=== PATIENT | female | born 1945 | race Caucasian/White ===

== ENCOUNTER 2016-09-05 15:51 | Emergency (ER) | payer OTHER ==
[~2016-09-05 15:51] MED LIST: LEVO150T9 PO
[2016-09-05 15:55] VITALS: BP 132/109; O2SAT 99
[2016-09-05 15:57] VITALS: PULSE 117
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
[2016-09-05] MEDS ORDERED: TRANEXAMIC ACID AMP 1,000 MG in NSS 100ML IV SCH (16:10)
[2016-09-05 16:16] LABS: ISTAT CREATININE 1.1 mg/dl (0.6-1.3); ISTAT HEMOGLOBIN 11.2 g/dl (12.0-16.0); ISTAT IONIZED CALCIUM 1.06 mmol/l (1.12-1.32)
--- NOTE | 2016-09-05 16:17 | DIAGNOSTIC IMAGING REPORT ---
SINGLE VIEW CHEST CLINICAL HISTORY: Trauma. FINDINGS: An AP, portable, supine chest radiograph is compared to study dated 06/12/2007 and correlated with chest CT dated 06/13/2007. The examination is significantly degraded by portable technique and patient rotation. The examination is performed through a trauma board, which also degrades assessment. The heart is mildly enlarged. There is unchanged enlargement of the main pulmonary artery. The pulmonary vasculature is noncongested. Chronic interstitial thickening is unchanged. No airspace consolidation, large pleural effusion, or pneumothorax is seen. The skeletal structures are osteopenic. There are acute left third through seventh rib fractures, several of which are distracted. IMPRESSION: 1. There are acute left 3rd through 7th rib fractures. 2. No pneumothorax is identified. 3. There is a small volume of fluid the left lung base, likely ascending trace hemothorax. 3. Cardiac enlargement with marked enlargement of the pulmonary arteries is similar to prior studies. Electronically signed by: Mikhail Metz M.D. 09/05/2016 4:17 PM Dictated Date/Time: 09/05/2016 4:12 PM
--- NOTE | 2016-09-05 16:18 | DIAGNOSTIC IMAGING REPORT ---
PELVIS 1 OR 2 VIEW ROUTINE CLINICAL HISTORY: Trauma. COMPARISON STUDY: CT of the abdomen and pelvis November 03, 2015. FINDINGS: Overlying trauma board is noted. There is a mildly displaced comminuted right femoral neck fracture. No proximal left femoral fracture is identified. Bilateral parasymphyseal fractures are noted. There is no widening of the symphysis pubis. There is cortical irregularity of the right sacrum which could reflect a fracture. IMPRESSION: 1. Acute mildly displaced comminuted right femoral neck fracture. 2. Bilateral parasymphyseal fractures, including displaced fractures of the right inferior pubic ramus and left superior pubic ramus. 3. Possible right sacral fracture. Electronically signed by: Matty Davis M.D. 09/05/2016 4:18 PM Dictated Date/Time: 09/05/2016 4:14 PM
== END 2016-09-05 16:27 | disposition short-term general hospital (02) ==
LOC: EDBD 15:51 → C.EDB 15:53
DX: S82.892B Other fracture of left lower leg, initial encounter for open fracture type I or II (principal); S40.812A Abrasion of left upper arm, initial encounter; S22.42XA Multiple fractures of ribs, left side, initial encounter for closed fracture; S72.001A Fracture of unspecified part of neck of right femur, initial encounter for closed fracture; S01.81XA Laceration without foreign body of other part of head, initial encounter; S32.501A Unspecified fracture of right pubis, initial encounter for closed fracture; S32.502A Unspecified fracture of left pubis, initial encounter for closed fracture; V09.00XA Pedestrian injured in nontraffic accident involving unspecified motor vehicles, initial encounter

== ENCOUNTER 2017-04-10 09:39 | Emergency (ER) | payer OTHER ==
[~2017-04-10] VITALS: Ht 157.5 cm; Wt 69.4 kg
[2017-04-10 09:41] VITALS: TEMP 36.4; Ht 157.5 cm; Wt 69.4 kg
[2017-04-10] MEDS ORDERED: FAMOTIDINE 20MG/5ML IV PUSH IV STA (09:56)
--- NOTE | 2017-04-10 10:04 | EMERGENCY ROOM VISIT NOTE ---
History Report prepared by Savana: Aurelio David Under the Supervision of: Dr. Yunior Yeboah M.D. First contact with patient: 09:53 Chief Complaint: CHEST PAIN Stated Complaint: CHEST PAINS Nursing Triage Summary: pt reports heavines in chest started this am. does not radiate. denies any n/v. bilat lower ext swelling. felt sob when chest heaviness started History of Present Illness The patient is a 71 year old female who presents to the Emergency Room with complaints of chest heaviness that began this morning. When her pain began, it was significantly worse than what she is experiencing currently. She tends to have this feeling intermittently at baseline. However she is having associated shortness of breath and dizziness which is abnormal for her. When her pain began , she was eating. She denies any cough, congestion, fevers, nausea, vomiting, diarrhea, abnormal urinary symptoms. This has never happened to the patient before. She denies any personal history of cardiac disease, MT, or cancer. She has a history of hypertension and a thyroid disorder. She has a family history of MT. Source of History: patient Onset: this morning Position: chest Symptom Intensity: mild Quality: other (Heaviness) Timing: other (Improving) Associated Symptoms: + SOB, No fevers, No cough, No nausea, No vomiting, No diarrhea, No urinary symptoms Note: She is experiencing dizziness. Review of Systems See HPI for pertinent positives and negatives. A total of ten systems were reviewed and were otherwise negative. Past Medical & Surgical Medical Problems: (1) HTN (hypertension) (2) No active medical problems (3) Thyroid disorder Family History Cancer Heart disease Omitted secondary to the patient's age. Social History Smoking Status: Never Smoker Smokeless Tobacco Use: No Alcohol Use: none Drug Use: none Marital Status: Housing Status: lives with family Occupation Status: retired Current/Historical Medications Scheduled Famotidine (Pepcid), 20 MG PO BID Levothyroxine Sodium (Levothyroxine Sodium), 1 TAB PO DAILY Allergies Coded Allergies: No Known Allergies (Verified , 04/10/17) Physical Exam Vital Signs Date Time Temp Pulse Resp B/P (MAP) Pulse Ox O2 Delivery O2 Flow Rate FiO2 04/10/17 14:50 89 20 136/74 97 04/10/17 13:30 86 20 133/73 96 Room Air 04/10/17 13:26 77 04/10/17 12:27 81 16 103/81 95 Room Air 04/10/17 10:25 91 04/10/17 10:23 92 20 143/67 96 Room Air 04/10/17 10:20 96 Room Air 04/10/17 10:19 Room Air 04/10/17 09:41 36.4 95 18 142/90 96 Room Air Physical Exam GENERAL: Awake, alert, well-appearing, in no distress HENT: Normocephalic, atraumatic. Oropharynx unremarkable. EYES: Normal conjunctiva. Sclera non-icteric. NECK: Supple. No nuchal rigidity. FROM. No JVD. RESPIRATORY: Clear to auscultation. CARDIAC: Regular rate, normal rhythm. Extremities warm and well perfused. Pulses equal. ABDOMEN: Soft, non-distended. Mild epigastric discomfort to palpation. No rebound or guarding. No masses. No peritoneal signs. RECTAL: Deferred. MUSCULOSKELETAL: Chest examination reveals no tenderness. The back is symmetrical on inspection without obvious abnormality. There is no CVA tenderness to palpation. No joint edema. LOWER EXTREMITIES: Calves are equal size bilaterally and non-tender. No edema. No discoloration. NEURO: Normal sensorium. No sensory or motor deficits noted. SKIN: No rash or jaundice noted. Medical Decision & Procedures ER Provider Diagnostic Interpretation: Radiology results as stated below per my review and radiologist interpretation: CHEST ONE VIEW PORTABLE CLINICAL HISTORY: Chest pain. COMPARISON STUDY: Chest radiograph September 05, 2016. FINDINGS: Multiple healed left-sided rib fractures are noted. No pneumothorax or pleural effusion is present. Moderate cardiomegaly is unchanged. Prominence of both sabrina is likely due to dilated central pulmonary arteries. There is no evidence of edema. Minimal left basilar opacity favors atelectasis. IMPRESSION: 1. No acute cardiopulmonary findings. 2. Mild left basilar opacity suggestive of atelectasis. 3. Stable cardiomegaly and dilatation of the central pulmonary arteries which suggests pulmonary arterial hypertension. Electronically signed by: Matty Davis M.D. 04/10/2017 10:59 AM Dictated Date/Time: 04/10/2017 10:58 AM Laboratory Results 04/10/17 10:25 Red Blood Count 4.73, Mean Corpuscular Volume 90.7, Mean Corpuscular Hemoglobin 28.8, Mean Corpuscular Hemoglobin Concent 31.7, Mean Platelet Volume 8.8, Neutrophils (%) (Auto) 65.3, Lymphocytes (%) (Auto) 26.5, Monocytes (%) (Auto) 5.6, Eosinophils (%) (Auto) 2.0, Basophils (%) (Auto) 0.4, Neutrophils # (Auto) 5.33, Lymphocytes # (Auto) 2.16, Monocytes # (Auto) 0.46, Eosinophils # (Auto) 0.16, Basophils # (Auto) 0.03 04/10/17 10:25 Test 04/10/17 10:25 04/10/17 13:50 White Blood Count 8.16 K/uL (4.8-10.8) Red Blood Count 4.73 M/uL (4.2-5.4) Hemoglobin 13.6 g/dL (12.0-16.0) Hematocrit 42.9 % (37-47) Mean Corpuscular Volume 90.7 fL (80-100) Mean Corpuscular Hemoglobin 28.8 pg (25-34) Mean Corpuscular Hemoglobin Concent 31.7 g/dl (32-36) Platelet Count 174 K/uL (130-400) Mean Platelet Volume 8.8 fL (7.4-10.4) Neutrophils (%) (Auto) 65.3 % Lymphocytes (%) (Auto) 26.5 % Monocytes (%) (Auto) 5.6 % Eosinophils (%) (Auto) 2.0 % Basophils (%) (Auto) 0.4 % Neutrophils # (Auto) 5.33 K/uL (1.4-6.5) Lymphocytes # (Auto) 2.16 K/uL (1.2-3.4) Monocytes # (Auto) 0.46 K/uL (0.11-0.59) Eosinophils # (Auto) 0.16 K/uL (0-0.5) Basophils # (Auto) 0.03 K/uL (0-0.2) RDW Standard Deviation 47.3 fL (36.4-46.3) RDW Coefficient of Variation 14.2 % (11.5-14.5) Immature Granulocyte % (Auto) 0.2 % Immature Granulocyte # (Auto) 0.02 K/uL (0.00-0.02) Anion Gap 7.0 mmol/L (3-11) Est Creatinine Clear Calc Drug Dose 74.8 ml/min Estimated GFR () 104.6 Estimated GFR (Non- 90.2 BUN/Creatinine Ratio 20.2 (10-20) Calcium Level 9.4 mg/dl (8.5-10.1) Total Bilirubin 0.4 mg/dl (0.2-1) Direct Bilirubin < 0.1 mg/dl (0-0.2) Aspartate Amino Transf (AST/SGOT) 15 U/L (15-37) Alanine Aminotransferase (ALT/SGPT) 14 U/L (12-78) Alkaline Phosphatase 105 U/L (45-117) Pro-B-Type Natriuretic Peptide 147 pg/ml (0-900) Total Protein 8.1 gm/dl (6.4-8.2) Albumin 3.7 gm/dl (3.4-5.0) Lipase 86 U/L (73-393) Troponin I < 0.015 ng/ml (0-0.045) Laboratory results reviewed by me Medications Administered Medications (Trade) Dose Ordered Sig/Ryan Route Start Time Stop Time Status Last Admin Dose Admin Famotidine (Pepcid 20mg Iv Push) 20 mg NOW STAT IV 04/10/17 09:56 04/10/17 10:01 DC 04/10/17 09:56 20 MG ECG Indication: chest pain Rate (beats per minute): 91 Rhythm: sinus rhythm Findings: 1st degree AV block Comparison ECG Date: 12 Jun 2007 Change: no significant change ED Course 0953: The patient was evaluated in room A10. A complete history and physical exam was performed. 1436: I reevaluated the patient. Discussed results and discharge instructions: She verbalized understanding and agreement. The patient is ready for discharge. Medical Decision I reviewed the patient's past medical history, medications, and the nursing notes as described above. Differential diagnosis includes but is not limited to: ACS, CHF, pneumonia, bronchitis, pulmonary embolism, peptic ulcer, and AAA. The patient is a 71-year-old woman who presented to emergency department with constant chest pain since this morning after eating eggs associated shortness of breath per history of present illness. Arrival the patient reports improvement and is in no acute distress, AFVSS. EKG unremarkable and similar to prior. Troponin negative 2. Resolved with IV Pepcid suggesting likely reflux versus gastritis given that patient's symptoms began shortly after eating an egg this morning. Labs otherwise unremarkable. Heart score of 3, low risk, and given no detla troponin change unlikely to be cardiac related. Findings and plan for follow-up reviewed with patient. Patient agreeable and d/c 'd per discharge instructions. Medication Reconcilliation Current Medication List: was personally reviewed by me Blood Pressure Screening Patient's blood pressure: Elevated blood pressure Blood pressure disposition: Elevated BP felt to be situational Impression Primary Impression: Substernal precordial chest pain Additional Impression: GERD (gastroesophageal reflux disease) Scribe Attestation The scribe's documentation has been prepared under my direction and personally reviewed by me in its entirety. I confirm that the note above accurately reflects all work, treatment, procedures, and medical decision making performed by me. Departure Information Dispostion Home / Self-Care Prescriptions Famotidine (PEPCID) 20 Mg Tab 20 MG PO BID for 7 Days, #14 TAB Prov: Yunior Yeboah M.D. 04/10/17 Referrals No Doctor, Assigned (PCP) Forms Call Back Authorization, HOME CARE DOCUMENTATION FORM, IMPORTANT VISIT INFORMATION Patient Instructions ED Chest Pain Atypical Unkn Cause, ED GERD, [facility] Additional Instructions Please follow up with your primary care physician in the next 1-3 days for re- evaluation. Your symptoms were mos likely due to reflux or a gastritis. Otherwise, your exam, EKG, chest xray, and lab results did not show signs of an emergent condition at this time. Pepcid as needed for return of symptoms. Return to the emergency department for worsening symptoms as described in the accompanying instructions. Problem Qualifiers
[2017-04-10 10:55] LABS: BASO % 0.4 %; BASO ABS # 0.03 K/uL (0-0.2); COMPLETE YES; HEMATOCRIT 42.9 % (37-47); IG% 0.2 %; LYMPH % 26.5 %; LYMPH ABS # 2.16 K/uL (1.2-3.4); MEAN CELL VOLUME 90.7 fL (80-100); MEAN CORPUSCULAR HEMOGLOBIN 28.8 pg (25-34); MEAN CORPUSCULAR HGB CONC 31.7 g/dl (32-36); MEAN PLATELET VOLUME 8.8 fL (7.4-10.4); MONO % 5.6 %; NEUT % 65.3 %; PLATELET COUNT 174 K/uL (130-400); RED BLOOD COUNT 4.73 M/uL (4.2-5.4); WHITE BLOOD COUNT 8.16 K/uL (4.8-10.8)
--- NOTE | 2017-04-10 11:00 | DIAGNOSTIC IMAGING REPORT ---
CHEST ONE VIEW PORTABLE CLINICAL HISTORY: Chest pain. COMPARISON STUDY: Chest radiograph September 05, 2016. FINDINGS: Multiple healed left-sided rib fractures are noted. No pneumothorax or pleural effusion is present. Moderate cardiomegaly is unchanged. Prominence of both sabrina is likely due to dilated central pulmonary arteries. There is no evidence of edema. Minimal left basilar opacity favors atelectasis. IMPRESSION: 1. No acute cardiopulmonary findings. 2. Mild left basilar opacity suggestive of atelectasis. 3. Stable cardiomegaly and dilatation of the central pulmonary arteries which suggests pulmonary arterial hypertension. Electronically signed by: Matty Davis M.D. 04/10/2017 10:59 AM Dictated Date/Time: 04/10/2017 10:58 AM
[2017-04-10 11:17] LABS: ALT/SGPT 14 U/L (12-78); BLOOD UREA NITROGEN 13 mg/dl (7-18); BUN/CREATININE RATIO 20.2 (10-20); CALCIUM 9.4 mg/dl (8.5-10.1); CARBON DIOXIDE 29 mmol/L (21-32); CHLORIDE 102 mmol/L (98-107); CREATININE 0.63 mg/dl (0.60-1.20); GLUCOSE 82 mg/dl (70-99); POTASSIUM 3.6 mmol/L (3.5-5.1); SODIUM 138 mmol/L (136-145)
[2017-04-10 11:22] LABS: ALKALINE PHOSPHATASE 105 U/L (45-117); AST/SGOT 15 U/L (15-37)
[2017-04-10] MEDS ORDERED: FAMO20TA9 PO (14:29)
[2017-04-10 14:50] VITALS: BP 136/74; PULSE 89; O2SAT 97
== END 2017-04-10 14:50 | disposition home or self-care (01) ==
LOC: C.EDB 09:40 → C.EDA 14:50
DX: R07.2 Precordial pain (principal); K21.9 Gastro-esophageal reflux disease without esophagitis; I10 Essential (primary) hypertension; Z82.49 Family history of ischemic heart disease and other diseases of the circulatory system; E07.9 Disorder of thyroid, unspecified

== ENCOUNTER → 2017-06-26 | Outpatient (CLI) | payer OTHER | LOC: C.LAB 11:06 | PROVIDERS: ATTEND Family Medicine | DX: E03.9 Hypothyroidism, unspecified (principal) ==

== ENCOUNTER 2021-02-07 22:21 | Inpatient (IN) ==
[2021-02-07] MEDS ORDERED: SODIUM CHLORIDE 0.9% 1000ML 500 ML IV ONE (22:38)
--- NOTE | 2021-02-07 22:45 | Emergency Department Note ---
History of Present Illness General Chief complaint: Flu Like Symptoms Stated complaint: FLU SYMPTOMS Time Seen by Provider: 02/07/21 22:31 History of Present Illness This 75-year-old presents to the ER complaining of weakness, body aches, dyspnea and generalized weakness for the past day who sats are 88% and is unvaccinated for COVID-19 Location: Generalized Quality: Weak Severity: Moderate Duration: 1 day Timing: Started yesterday Context: Patient was concerned and came in Modifying factors: better with rest; worse with activity Patient also complains of abdominal discomfort with nausea. Patient denies chest pain, vomiting, diarrhea, urinary symptoms, neck stiffness. She states she feels dehydrated. No known sick contacts. Home Medications Medication Instructions Recorded Confirmed Type aspirin 81 mg tablet,delayed 81 mg PO QAM 02/07/21 02/07/21 History release cholecalciferol (vitamin D3) 50 0 mcg PO QAM 02/07/21 02/07/21 History mcg (2,000 unit) capsule (Vitamin D3) levothyroxine 75 mcg tablet 75 mcg PO QAM 02/07/21 02/07/21 History Allergies Allergy/AdvReac Type Severity Reaction Status Date / Time No Known Allergies Allergy Verified 02/07/21 23:19 Past Med/Surg History Medical History Thyroid disorder Surgical History History of orthopedic surgery Social History Smoking Status: Never smoker Feels Safe at Home: Yes Review of Systems A total of 10 systems reviewed and were otherwise negative Physical Exam Vital Signs Vital Signs - 24 hr 02/07/21 22:23 02/07/21 23:06 02/07/21 23:07 Temperature 36.5 C Temperature Source Temporal Artery Scan Pulse Rate 133 H 77 Respiratory Rate 20 Respiratory Effort / Characteristics Non-Labored Spontaneous Gasping/Agonal Respiratory Depth Normal Respiratory Pattern Regular Blood Pressure 103/52 L Blood Pressure [Left Arm] 124/51 L Blood Pressure Mean 69 Blood Pressure Mean [Left Arm] 75 Pulse Oximetry 88 L 98 96 Oxygen Delivery Method Room Air Nasal Cannula Nasal Cannula Oxygen Flow Rate 2 2 Sepsis Recent Fever Within 48 Hours No Sepsis New/Unexplained Change in Mental Status No Sepsis Action Taken by Nursing No Action Required 02/07/21 23:53 02/08/21 00:00 02/08/21 00:34 Temperature Temperature Source Pulse Rate Respiratory Rate Respiratory Effort / Characteristics Non-Labored Non-Labored Non-Labored Respiratory Depth Respiratory Pattern Blood Pressure Blood Pressure [Left Arm] Blood Pressure Mean Blood Pressure Mean [Left Arm] Pulse Oximetry 96 97 97 Oxygen Delivery Method Nasal Cannula Nasal Cannula Nasal Cannula Oxygen Flow Rate 2 2 2 Sepsis Recent Fever Within 48 Hours Sepsis New/Unexplained Change in Mental Status Sepsis Action Taken by Nursing VITALS: Vitals are noted on the nurse's note and reviewed by myself. Vital signs hypoxic on room air which improved on nasal cannula. GENERAL: Elderly female dehydrated ill-appearing, SKIN: The skin was without rashes, erythema, edema, or bruising. There is no tenting of the skin. Capillary reflex less than 2 seconds. HEAD: Normocephalic atraumatic. EARS: External auditory canals clear, tympanic membranes pearly francisco without erythema or effusion bilaterally. EYES: Pupils equal round and reactive to light and accommodation. Conjunctivae without injection, sclerae without icterus. Extraocular movements intact. NOSE: Patent, turbinates without inflammation or discharge. MOUTH: Mucous membranes dry. Pharynx without erythema or exudate. Uvula midline. Airway patent. Tongue does not deviate. NECK: Supple without nuchal rigidity. No lymphadenopathy. No thyromegaly. Cervical spine is nontender. No JVD. HEART: Regular rate and rhythm LUNGS: Clear to auscultation bilaterally without wheezes, rales or rhonchi. No retractions or accessory muscle use. ABDOMEN: Positive bowel sounds x 4. Normal tympanic percussion. Soft, tender to palpation lower abdomen, without masses or organomegaly. Valdez sign negative. No guarding or rebound tenderness. No CVA tenderness MUSCULOSKELETAL: No muscle atrophy, erythema, or edema noted. NEURO: Patient was alert and oriented to person place and time. Normal sensatio n to light and sharp touch. No focal neurological deficits. Course Administered Medications Sodium Chloride (Nss 1000ml) 1,000 mls @ 999 mls/hr IV .Q1H1M ONE Stop: 02/08/21 01:32 Last Admin: 02/08/21 00:41 Dose: 999 mls/hr Documented by: [id number] Discontinued Medications Sodium Chloride (Nss 1000ml) 500 mls @ 999 mls/hr IV .Q31M ONE Stop: 02/07/21 23:08 Last Infusion: 02/07/21 23:11 Dose: 0 mls/hr Documented by: [id number] Admin: 02/07/21 22:45 Dose: 999 mls/hr Documented by: [id number] Piperacillin Sod/Tazobactam Sod (Zosyn) 4.5 gm in 120 mls @ 240 mls/hr IV NOW ONE Stop: 02/08/21 00:52 Last Admin: 02/08/21 00:41 Dose: 240 mls/hr Documented by: [id number] Ioversol (Optiray 320 100ml) 100 ml IV ONCE ONE Stop: 02/07/21 23:51 Last Admin: 02/07/21 23:50 Dose: 93 ml Documented by: [id number] Medical Decision Making Medical Records Attestation: I reviewed the patient's medical records. Home Medications Current Medication List: was personally reviewed by me Laboratory Data Attestation: I reviewed the patient's lab results. Result diagrams: 02/07/21 22:39 02/07/21 22:39 Lab Results 02/07/21 02/07/21 02/07/21 Range/Units 22:39 22:39 22:39 WBC 14.98 H (4.8-10.8) K/uL RBC 4.52 (4.2-5.4) M/uL Hgb 12.8 (12.0-16.0) g/dL Hct 40.5 (37-47) % MCV 89.6 (80-100) fL MCH 28.3 (25-34) pg MCHC 31.6 L (32-36) g/dL RDW Std Deviation 48.4 H (36.4-46.3) fL RDW Coeff of Ricardo 14.8 H (11.5-14.5) % Plt Count 160 (130-400) K/uL MPV 9.1 (7.4-10.4) fL Immature Gran % (Auto) 0.3 % Neut % (Auto) 96.2 % Lymph % (Auto) 3.1 % [place] % (Auto) 0.3 % Eos % (Auto) 0.0 % Baso % (Auto) 0.1 % Neut # (Auto) 14.40 H (1.4-6.5) K/uL Lymph # (Auto) 0.46 L (1.2-3.4) K/uL [place] # (Auto) 0.05 L (0.11-0.59) K/uL Eos # (Auto) 0.00 (0-0.5) K/uL Baso # (Auto) 0.02 (0-0.2) K/uL Immature Gran # (Auto) 0.05 H (0.00-0.02) K/uL PT (9.0-12.0) Seconds INR (0.9-1.1) APTT (21.0-31.0) Seconds PTT Ratio Sodium 135 L (136-145) mmol/L Potassium 3.8 (3.5-5.1) mmol/L Chloride 99 (98-107) mmol/L Carbon Dioxide 25 (21-32) mmol/L Anion Gap 11.0 (3-11) BUN 22 H (7-18) mg/dl Creatinine 1.23 H (0.6-1.2) mg/dl Est Cr Clr Drug Dosing Not Reportable Est GFR ( Amer) 49.7 ml/min Est GFR (Non-Af Amer) 42.9 ml/min BUN/Creatinine Ratio 18.2 (10-20) Glucose 124 H (70-99) mg/dl Lactate (0.4-2.0) mmol/L Calcium 8.9 (8.5-10.1) mg/dl Magnesium 2.1 (1.8-2.4) mg/dl Total Bilirubin 1.7 H (0.2-1) mg/dl AST 29 (15-37) U/L ALT 17 (12-78) U/L Alkaline Phosphatase 93 (45-117) U/L Troponin I < 0.015 (0-0.045) ng/ml Total Protein 7.4 (6.4-8.2) gm/dl Albumin 3.1 L (3.4-5.0) gm/dl Globulin 4.3 H (2.5-4.0) gm/dl Albumin/Globulin Ratio 0.7 L (0.9-2) Procalcitonin 15.64 H (0-0.5) ng/ml Adenovirus (PCR) (NotDetected) B. pertussis DNA (PCR) (NotDetected) B.parapertussis DNA PCR (NotDetected) C. pneumoniae DNA (PCR) (NotDetected) Coronavirus OC43 (PCR) (NotDetected) Coronavirus HKU1 (PCR) (NotDetected) Coronavirus 229E (PCR) (NotDetected) COVID-19 Eval Order SARS-CoV-2 (PCR) (NotDetected) Coronavirus NL63 (PCR) (NotDetected) Human Metapneumovir PCR (NotDetected) Influenza Type A (PCR) (NotDetected) Influenza Type B (PCR) (NotDetected) M. pneumoniae (PCR) (NotDetected) Parainfluenza 1 (PCR) (NotDetected) Parainfluenza 2 (PCR) (NotDetected) Parainfluenza 3 (PCR) (NotDetected) Parainfluenza 4 (PCR) (NotDetected) RSV (PCR) (NotDetected) Entero/Rhino (PCR) (NotDetected) 02/07/21 02/07/21 02/07/21 Range/Units 22:39 22:39 23:00 WBC (4.8-10.8) K/uL RBC (4.2-5.4) M/uL Hgb (12.0-16.0) g/dL Hct (37-47) % MCV (80-100) fL MCH (25-34) pg MCHC (32-36) g/dL RDW Std Deviation (36.4-46.3) fL RDW Coeff of Ricardo (11.5-14.5) % Plt Count (130-400) K/uL MPV (7.4-10.4) fL Immature Gran % (Auto) % Neut % (Auto) % Lymph % (Auto) % [place] % (Auto) % Eos % (Auto) % Baso % (Auto) % Neut # (Auto) (1.4-6.5) K/uL Lymph # (Auto) (1.2-3.4) K/uL [place] # (Auto) (0.11-0.59) K/uL Eos # (Auto) (0-0.5) K/uL Baso # (Auto) (0-0.2) K/uL Immature Gran # (Auto) (0.00-0.02) K/uL PT 13.5 H (9.0-12.0) Seconds INR 1.4 H (0.9-1.1) APTT 27.7 (21.0-31.0) Seconds PTT Ratio 1.1 Sodium (136-145) mmol/L Potassium (3.5-5.1) mmol/L Chloride (98-107) mmol/L Carbon Dioxide (21-32) mmol/L Anion Gap (3-11) BUN (7-18) mg/dl Creatinine (0.6-1.2) mg/dl Est Cr Clr Drug Dosing Est GFR ( Amer) ml/min Est GFR (Non-Af Amer) ml/min BUN/Creatinine Ratio (10-20) Glucose (70-99) mg/dl Lactate 2.6 H* (0.4-2.0) mmol/L Calcium (8.5-10.1) mg/dl Magnesium (1.8-2.4) mg/dl Total Bilirubin (0.2-1) mg/dl AST (15-37) U/L ALT (12-78) U/L Alkaline Phosphatase (45-117) U/L Troponin I (0-0.045) ng/ml Total Protein (6.4-8.2) gm/dl Albumin (3.4-5.0) gm/dl Globulin (2.5-4.0) gm/dl Albumin/Globulin Ratio (0.9-2) Procalcitonin (0-0.5) ng/ml Adenovirus (PCR) (NotDetected) B. pertussis DNA (PCR) (NotDetected) B.parapertussis DNA PCR (NotDetected) C. pneumoniae DNA (PCR) (NotDetected) Coronavirus OC43 (PCR) (NotDetected) Coronavirus HKU1 (PCR) (NotDetected) Coronavirus 229E (PCR) (NotDetected) COVID-19 Eval Order [facility] at [facility] SARS-CoV-2 (PCR) (NotDetected) Coronavirus NL63 (PCR) (NotDetected) Human Metapneumovir PCR (NotDetected) Influenza Type A (PCR) (NotDetected) Influenza Type B (PCR) (NotDetected) M. pneumoniae (PCR) (NotDetected) Parainfluenza 1 (PCR) (NotDetected) Parainfluenza 2 (PCR) (NotDetected) Parainfluenza 3 (PCR) (NotDetected) Parainfluenza 4 (PCR) (NotDetected) RSV (PCR) (NotDetected) Entero/Rhino (PCR) (NotDetected) 02/07/21 Range/Units 23:00 WBC (4.8-10.8) K/uL RBC (4.2-5.4) M/uL Hgb (12.0-16.0) g/dL Hct (37-47) % MCV (80-100) fL MCH (25-34) pg MCHC (32-36) g/dL RDW Std Deviation (36.4-46.3) fL RDW Coeff of Ricardo (11.5-14.5) % Plt Count (130-400) K/uL MPV (7.4-10.4) fL Immature Gran % (Auto) % Neut % (Auto) % Lymph % (Auto) % [place] % (Auto) % Eos % (Auto) % Baso % (Auto) % Neut # (Auto) (1.4-6.5) K/uL Lymph # (Auto) (1.2-3.4) K/uL [place] # (Auto) (0.11-0.59) K/uL Eos # (Auto) (0-0.5) K/uL Baso # (Auto) (0-0.2) K/uL Immature Gran # (Auto) (0.00-0.02) K/uL PT (9.0-12.0) Seconds INR (0.9-1.1) APTT (21.0-31.0) Seconds PTT Ratio Sodium (136-145) mmol/L Potassium (3.5-5.1) mmol/L Chloride (98-107) mmol/L Carbon Dioxide (21-32) mmol/L Anion Gap (3-11) BUN (7-18) mg/dl Creatinine (0.6-1.2) mg/dl Est Cr Clr Drug Dosing Est GFR ( Amer) ml/min Est GFR (Non-Af Amer) ml/min BUN/Creatinine Ratio (10-20) Glucose (70-99) mg/dl Lactate (0.4-2.0) mmol/L Calcium (8.5-10.1) mg/dl Magnesium (1.8-2.4) mg/dl Total Bilirubin (0.2-1) mg/dl AST (15-37) U/L ALT (12-78) U/L Alkaline Phosphatase (45-117) U/L Troponin I (0-0.045) ng/ml Total Protein (6.4-8.2) gm/dl Albumin (3.4-5.0) gm/dl Globulin (2.5-4.0) gm/dl Albumin/Globulin Ratio (0.9-2) Procalcitonin (0-0.5) ng/ml Adenovirus (PCR) Not Detected (NotDetected) B. pertussis DNA (PCR) Not Detected (NotDetected) B.parapertussis DNA PCR Not Detected (NotDetected) C. pneumoniae DNA (PCR) Not Detected (NotDetected) Coronavirus OC43 (PCR) Not Detected (NotDetected) Coronavirus HKU1 (PCR) Not Detected (NotDetected) Coronavirus 229E (PCR) Not Detected (NotDetected) COVID-19 Eval Order SARS-CoV-2 (PCR) Not Detected (NotDetected) Coronavirus NL63 (PCR) Not Detected (NotDetected) Human Metapneumovir PCR Not Detected (NotDetected) Influenza Type A (PCR) Not Detected (NotDetected) Influenza Type B (PCR) Not Detected (NotDetected) M. pneumoniae (PCR) Not Detected (NotDetected) Parainfluenza 1 (PCR) Not Detected (NotDetected) Parainfluenza 2 (PCR) Not Detected (NotDetected) Parainfluenza 3 (PCR) Not Detected (NotDetected) Parainfluenza 4 (PCR) Not Detected (NotDetected) RSV (PCR) Not Detected (NotDetected) Entero/Rhino (PCR) Not Detected (NotDetected) Imaging Data Attestation: I personally reviewed and interpreted this imaging study as follows: MDM Narrative Prior records/ancillary studies reviewed and summarized above. Nursing notes reviewed. Additional history obtained from nursing. The patient's history was concerning for weak, short of breath, hypoxic and abdominal pain. Differential diagnosis: Etiologies such as metabolic, infection, hypo/hyperglycemia, electrolyte abnormalities, cardiac sources, intracerebral event, toxicologic, neurologic, as well as others were entertained. Physical examination: As above. ER treatment provided: IV Lock An order was placed for continuous cardiac monitoring. The monitor shows a rate of 60-1 50 with a sinus rhythm. IV fluids On reassessment the patient felt better. Diagnostics interpretation by me: ECG: Ordered for weakness EKG: Poor baseline, incomplete right bundle, no acute ST-T changes. Impression incomplete right bundle branch block interpreted by myself I think arrhythmia is unlikely. EKG shows no interval abnormalities such as QT prolongation or WPW. There are no findings to suggest Brugada syndrome. Cardiac monitoring in the emergency department reveals no tachycardic or bradycardic dysrhythmia. Hypertrophic cardiomyopathy was considered but there are no clear historical elements pointing toward this. EKG is not suggestive. The QRS voltage is not extremely large and there are no suggestive Q waves. The labs revealed leukocytosis, elevated procalcitonin and lactic Blood cultures pending Negative bio fire Imaging studies: Chest x-ray concerning for right middle lobe pneumonia per my interpretation Preliminary Findings Only See Final Report For Complete Findings CT ABDOMEN & PELVIS With Contrast: No prior exam for comparison. Cardiomegaly. Mild bilateral lower lobe atelectasis. Trace amount of the right- sided pleural effusion versus pleural thickening. Unremarkable liver. Possible tiny gallstones otherwise unremarkable gallbladder and biliary system. Mild pancreatic atrophy. Splenic granulomata. Calcified atherosclerotic disease of aorta. Normal right internal gland. Mass within the left adrenal gland measures 1.7 x 1.6 cm. This is incompletely characterized. If clinically, three-phase upper abdomen CT recommended for further evaluation. Normal left kidney. Right hydronephrosis with a stone at the right UP junction measuring 8.7 mm. Unremarkable stomach and he small bowel. Nonvisualized appendix. Unremarkable colon. You 2 nodules are clear suboptimally seen urinary bladder. 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 Calcified atherosclerotic disease of aorta with no aneurysm. Radiologist: Lissette Zambrano MD CURB Score: Confusion: 0 Urea (BUN > 19): 1 Respiratory Rate (>30/min): 0 Blood Pressure: Diastolic <60 or Systolic <90 0 Age (>= 65) 1 Total (0-1 low risk, 2-5 high risk): 2 Consultation: A consultation was placed with the hospitalist. The case was discussed and diagnostics were reviewed. The patient was evaluated in the ER for further treatment. Exam and history seem consistent with sepsis pneumonia. Patient has been sick. X-ray concerning for pneumonia. She is hypoxic. Medicine was consulted. She will be admitted. By the evaluation outlined above emergent etiologies such as electrolyte abnormalities, cardiac sources, intracerebral event, toxologic, neurologic, abno rmalities blood glucose, metabolic, as well as others were deemed relatively unlikely. The pt informed about the findings as listed above. All questions were answered and pleased with the treatment. The chart was completed utilizing [employer] Speech voice recognition software. Grammatical errors, random word insertions, pronoun errors, and incomplete sentences are an occassional consequence of this system due to software limitations, ambient noise, and hardware issues. Any formal questions or concerns about the content, text, or information contained within the body of this dictation should be directly addressed to the physician plant attendant or assistant operator for clarification. Impression & Plan Sepsis, Pneumonia Discharge Plan Visit Data Chief Complaint: Flu Like Symptoms Stated Complaint: FLU SYMPTOMS ED Provider: Bryan Sebastian ED Midlevel Provider: Tori Yen Discharge Problem: Sepsis, Pneumonia Patient Disposition: Admitted As Inpatient Condition: Fair Forms Stand Alone Forms: [employer] Prescriptions Prescriptions: No Action aspirin 81 mg Tablet,Delayed Release (Dr/Ec) 81 mg PO QAM RF: 0 levothyroxine 75 mcg tablet 75 mcg PO QAM RF: 0 cholecalciferol (vitamin D3) [Vitamin D3] 50 mcg (2,000 unit) Capsule 0 mcg PO QAM RF: 0 Referrals Referrals: Aubrey Ham [Staff Physician] - Discharge Problem: Sepsis Qualifiers: Sepsis type: sepsis due to unspecified organism Sepsis acute organ dysfunction status: unspecified Qualified Code(s): A41.9 - Sepsis, unspecified organism
[2021-02-07 22:50] LABS: Basophils # (auto) 0.02 K/uL (0-0.2); Basophils % (auto) 0.1 %; Hematocrit (blood only) 40.5 % (37-47); Hemoglobin 12.8 g/dL (12.0-16.0); Immature Granulocytes # (auto) 0.05 K/uL (0.00-0.02); Immature Granulocytes % (auto) 0.3 %; Lymphocytes # (auto) 0.46 K/uL (1.2-3.4); Lymphocytes % (auto) 3.1 %; Mean Corpuscular Hemoglobin 28.3 pg (25-34); Mean Corpuscular Hgb Conc 31.6 g/dL (32-36); Mean Corpuscular Volume 89.6 fL (80-100); Mean Platelet Volume 9.1 fL (7.4-10.4); Monocytes # (auto) 0.05 K/uL (0.11-0.59); Monocytes % (auto) 0.3 %; Neutrophils % (auto) 96.2 %; Platelet Count 160 K/uL (130-400); RDW Coefficient of Variation 14.8 % (11.5-14.5); RDW Standard Deviation 48.4 fL (36.4-46.3); Red Blood Count 4.52 M/uL (4.2-5.4); White Blood Count 14.98 K/uL (4.8-10.8)
[2021-02-07 23:01] LABS: INR 1.4 (0.9-1.1); Partial Thromboplastin Ratio 1.1; Partial Thromboplastin Time 27.7 Seconds (21.0-31.0); Prothrombin Time 13.5 Seconds (9.0-12.0)
[2021-02-07 23:08] LABS: Alanine Aminotransferase 17 U/L (12-78); Albumin Level 3.1 gm/dl (3.4-5.0); Aspartate Aminotransferase 29 U/L (15-37); BUN Creatinine Ratio 18.2 (10-20); Blood Urea Nitrogen 22 mg/dl (7-18); Calcium 8.9 mg/dl (8.5-10.1); Carbon Dioxide 25 mmol/L (21-32); Chloride 99 mmol/L (98-107); Est GFR (African American) 49.7 ml/min; Est GFR (Non-African American) 42.9 ml/min; Glucose 124 mg/dl (70-99); Magnesium 2.1 mg/dl (1.8-2.4); Potassium 3.8 mmol/L (3.5-5.1); Sodium 135 mmol/L (136-145)
[2021-02-07 23:12] LABS: Albumin Globulin Ratio 0.7 (0.9-2); Alkaline Phosphatase 93 U/L (45-117); Bilirubin,Total 1.7 mg/dl (0.2-1); Globulin 4.3 gm/dl (2.5-4.0); Total Protein 7.4 gm/dl (6.4-8.2); Troponin I < 0.015 ng/ml (0-0.045)
[2021-02-07] MEDS ORDERED: OPTIRAY 320 100ml IV ONE (23:50)
[2021-02-08 00:09] LABS: Adenovirus PCR Not Detected (NotDetected); Bordetella parapertussis PCR Not Detected (NotDetected); Bordetella pertussis PCR Not Detected (NotDetected); Chlamydia pneumoniae PCR Not Detected (NotDetected); Coronavirus 229E PCR Not Detected (NotDetected); Coronavirus CoV-2 (COVID19)PCR Not Detected (NotDetected); Coronavirus HKU1 PCR Not Detected (NotDetected); Coronavirus NL63 PCR Not Detected (NotDetected); Coronavirus OC43PCR Not Detected (NotDetected); Human Metapneumovirus PCR Not Detected (NotDetected); Influenza A PCR Not Detected (NotDetected); Influenza B PCR Not Detected (NotDetected); Mycoplasma pneumoniae PCR Not Detected (NotDetected); Parainfluenza Virus 1 PCR Not Detected (NotDetected); Parainfluenza Virus 2 PCR Not Detected (NotDetected); Parainfluenza Virus 3 PCR Not Detected (NotDetected); Parainfluenza Virus 4 PCR Not Detected (NotDetected); Respiratory Syncytial VirusPCR Not Detected (NotDetected); Rhinovirus/Enterovirus PCR Not Detected (NotDetected)
[2021-02-08] MEDS ORDERED: PIPERACILLIN/TAZOBACTAM 4.5 GM/120 ML BAG IV ONE (00:23)
[2021-02-08] MEDS ORDERED: PIPERACILL/TAZOBAC CONSULT ACTIVE PRN (00:23)
[2021-02-08] MEDS ORDERED: SODIUM CHLORIDE 0.9% 1000ML 1,000 ML IV ONE (00:32)
[2021-02-08] MEDS ORDERED: DOXYCYCLINE HYCLATE 100 MG in DEXTROSE 5% 100 ML IV STA (00:47)
--- NOTE | 2021-02-08 01:09 | History & Physical Report ---
Date of Service February 08, 2021 Assessment & Plan (1) Severe sepsis: Plan: SIRS plus lactic acidosis Multifactorial : Complicated UTI secondary to obstructive uropathy Atypical pneumonia given dry cough/constitutional symptoms Postsurgical hypothyroidism, TSH elevated Hyperglycemia rule out DM Medical telemetry CS, Cefepime for complicated UTI, Doxycycline for atypical pneumonia IVF, follow lactic acid Urology consult Re: Obstructive uropathy (ER provider already in touch with urologist oracle application architect. Patient to go to the OR for intervention.) Check hemoglobin A1c DVT prophylaxis. Lovenox subcu Full code Patient's daughter requesting updates from providers. Ms. Eileen Alvarado, contact #[phone]. Text document was generated using [employer] voice recognition software. It may contain grammatical or spelling errors. Kindly contact undersigned for clarification of any documentation item in question. History of Present Illness Chief Complaint: Weakness, body aches, abdominal pain, dry cough Primary Care Provider: Matt Banda DO History obtained from patient, family, and records. Medical history significant for postsurgical hypothyroidism. Few days history of achy right-sided abdominal pain with fever, chills, dry cough symptoms without chest pain, S OB. Patient denies hematuria or prior episodes. No known recent COVID-19 contacts. Patient brought to the ER by daughter. Given IV Zosyn for sepsis. 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 Allergies Allergy/AdvReac Type Severity Reaction Status Date / Time No Known Allergies Allergy Verified 02/07/21 23:19 Home Medications Medication Instructions Recorded Confirmed Type aspirin 81 mg tablet,delayed 81 mg PO QAM 02/07/21 02/07/21 History release cholecalciferol (vitamin D3) 50 0 mcg PO QAM 02/07/21 02/07/21 History mcg (2,000 unit) capsule (Vitamin D3) levothyroxine 75 mcg tablet 75 mcg PO QAM 02/07/21 02/07/21 History Past Med/Surg History Medical History Thyroid disorder Surgical History History of orthopedic surgery Social History Smoking Status: Never smoker Hx Alcohol Use: No Hx Substance Use: No Preferred Language: Hungarian Communication Ability: Effective Linux System Engineer Required: No Beliefs That Will Affect Care: None Current Living Situation: Family Other Information That Helps Us Care for You: No Feels Safe at Home: Yes Safety Concerns: Feels Safe At This Time Assistive Devices: Walker Review of Systems Review of Systems: As per HPI, all 10 systems reviewed, all other ROS negative Physical Exam Physical Exam: GENERAL: Comfortable, pleasant, obese, no respiratory distress SKIN: Normal color, warm HEENT: [place] palpebral conjunctivae, no ptosis, dry buccal mucosa, nasal cannula in place NECK : Supple, no tenderness CHEST : CTA, no tenderness HEART : Tachycardic, no obvious murmurs ABDOMEN: Some distention, minimal right-sided abdominal tenderness EXTREMITIES : No LE swelling/tenderness, no other conspicuous deformities noted NEUROLOGIC : Coherent, no facial asymmetry, no other gross focality Results & Data Results & Data ([facility]) Vital Signs (Past 12 Hours) Vital Signs Temp Pulse Pulse Resp BP BP Pulse Ox 02/08/21 01:05 124 H 103/50 L 95 02/08/21 00:34 97 02/08/21 00:00 97 02/07/21 23:53 96 02/07/21 23:07 124/51 L 96 02/07/21 23:06 77 98 02/07/21 22:23 36.5 C 133 H 20 103/52 L 88 L Laboratory Results Laboratory Results WBC 14.98 K/uL (4.8-10.8) H 02/07/21 22:39 RBC 4.52 M/uL (4.2-5.4) 02/07/21 22:39 Hgb 12.8 g/dL (12.0-16.0) 02/07/21 22:39 Hct 40.5 % (37-47) 02/07/21 22:39 MCV 89.6 fL (80-100) 02/07/21 22:39 MCH 28.3 pg (25-34) 02/07/21 22:39 MCHC 31.6 g/dL (32-36) L 02/07/21 22:39 RDW Std Deviation 48.4 fL (36.4-46.3) H 02/07/21 22:39 RDW Coeff of Ricardo 14.8 % (11.5-14.5) H 02/07/21 22:39 Plt Count 160 K/uL (130-400) 02/07/21 22:39 MPV 9.1 fL (7.4-10.4) 02/07/21 22:39 Immature Gran % (Auto) 0.3 % 02/07/21 22:39 Neut % (Auto) 96.2 % 02/07/21 22:39 Lymph % (Auto) 3.1 % 02/07/21 22:39 [place] % (Auto) 0.3 % 02/07/21 22:39 Eos % (Auto) 0.0 % 02/07/21 22:39 Baso % (Auto) 0.1 % 02/07/21 22:39 Neut # (Auto) 14.40 K/uL (1.4-6.5) H 02/07/21 22:39 Lymph # (Auto) 0.46 K/uL (1.2-3.4) L 02/07/21 22:39 [place] # (Auto) 0.05 K/uL (0.11-0.59) L 02/07/21 22:39 Eos # (Auto) 0.00 K/uL (0-0.5) 02/07/21 22:39 Baso # (Auto) 0.02 K/uL (0-0.2) 02/07/21 22:39 Immature Gran # (Auto) 0.05 K/uL (0.00-0.02) H 02/07/21 22:39 PT 13.5 Seconds (9.0-12.0) H 02/07/21 22:39 INR 1.4 (0.9-1.1) H 02/07/21 22:39 APTT 27.7 Seconds (21.0-31.0) 02/07/21 22:39 PTT Ratio 1.1 02/07/21 22:39 Sodium 135 mmol/L (136-145) L 02/07/21 22:39 Potassium 3.8 mmol/L (3.5-5.1) 02/07/21 22:39 Chloride 99 mmol/L (98-107) 02/07/21 22:39 Carbon Dioxide 25 mmol/L (21-32) 02/07/21 22:39 Anion Gap 11.0 (3-11) 02/07/21 22:39 BUN 22 mg/dl (7-18) H 02/07/21 22:39 Creatinine 1.23 mg/dl (0.6-1.2) H 02/07/21 22:39 Est Cr Clr Drug Dosing Not Reportable 02/07/21 22:39 Est GFR ( Amer) 49.7 ml/min 02/07/21 22:39 Est GFR (Non-Af Amer) 42.9 ml/min 02/07/21 22:39 BUN/Creatinine Ratio 18.2 (10-20) 02/07/21 22:39 Glucose 124 mg/dl (70-99) H 02/07/21 22:39 Lactate 1.3 mmol/L (0.4-2.0) 02/08/21 00:32 Calcium 8.9 mg/dl (8.5-10.1) 02/07/21 22:39 Magnesium 2.1 mg/dl (1.8-2.4) 02/07/21 22:39 Total Bilirubin 1.7 mg/dl (0.2-1) H 02/07/21 22:39 AST 29 U/L (15-37) 02/07/21 22:39 ALT 17 U/L (12-78) 02/07/21 22:39 Alkaline Phosphatase 93 U/L (45-117) 02/07/21 22:39 Troponin I < 0.015 ng/ml (0-0.045) 02/07/21 22:39 Total Protein 7.4 gm/dl (6.4-8.2) 02/07/21 22:39 Albumin 3.1 gm/dl (3.4-5.0) L 02/07/21 22:39 Globulin 4.3 gm/dl (2.5-4.0) H 02/07/21 22:39 Albumin/Globulin Ratio 0.7 (0.9-2) L 02/07/21 22:39 Procalcitonin 15.64 ng/ml (0-0.5) H 02/07/21 22:39 Adenovirus (PCR) Not Detected (NotDetected) 02/07/21 23:00 B. pertussis DNA (PCR) Not Detected (NotDetected) 02/07/21 23:00 B.parapertussis DNA PCR Not Detected (NotDetected) 02/07/21 23:00 C. pneumoniae DNA (PCR) Not Detected (NotDetected) 02/07/21 23:00 Coronavirus OC43 (PCR) Not Detected (NotDetected) 02/07/21 23:00 Coronavirus HKU1 (PCR) Not Detected (NotDetected) 02/07/21 23:00 Coronavirus 229E (PCR) Not Detected (NotDetected) 02/07/21 23:00 COVID-19 Eval Order RESPNP at [facility] 02/07/21 23:00 SARS-CoV-2 (PCR) Not Detected (NotDetected) 02/07/21 23:00 Coronavirus NL63 (PCR) Not Detected (NotDetected) 02/07/21 23:00 Human Metapneumovir PCR Not Detected (NotDetected) 02/07/21 23:00 Influenza Type A (PCR) Not Detected (NotDetected) 02/07/21 23:00 Influenza Type B (PCR) Not Detected (NotDetected) 02/07/21 23:00 M. pneumoniae (PCR) Not Detected (NotDetected) 02/07/21 23:00 Parainfluenza 1 (PCR) Not Detected (NotDetected) 02/07/21 23:00 Parainfluenza 2 (PCR) Not Detected (NotDetected) 02/07/21 23:00 Parainfluenza 3 (PCR) Not Detected (NotDetected) 02/07/21 23:00 Parainfluenza 4 (PCR) Not Detected (NotDetected) 02/07/21 23:00 RSV (PCR) Not Detected (NotDetected) 02/07/21 23:00 Entero/Rhino (PCR) Not Detected (NotDetected) 02/07/21 23:[address] abdomen pelvis initial read: No prior examfor comparison. Cardiomegaly. Mild bilateral lower lobe atelectasis. Trace amount of the right- sided pleural effusion versus pleural thickening. Unremarkable liver. Possible tinygallstones otherwise unremarkable gallbladder and biliarysystem. Mild pancreatic atrophy. Splenic granulomata. Calcified atherosclerotic disease of aorta. Normal right internal gland. Masswithin the left adrenal gland measures 1.7 x 1.6 cm. This is incompletelycharacterized. If clinically, three-phase upper abdomen CT recommended for further evaluation. Normal left kidney. Right hydronephrosiswith a stone at the right UP junction measuring 8.7 mm. Unremarkable stomach and he small bowel. Nonvisualized appendix. Unremarkable colon. You 2 nodules are clear suboptimallyseen urinarybladder. 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 Calcified atherosclerotic disease of aortawith no aneurysm. CT chest initial read: Mild bilateral lower lobe atelectasis, slightlymore significant on the right compared to the left. Enlargement of central pulmonaryarteries, cannot exclude pulmonaryhypertension, clinical correlation recommended. Mild cardiomegalywith coronaryarterycalcifications. No focal infiltrate. There are areas of mild Mosaic pattern which maybe seen with vascular disease or small airway disease. Atherosclerotic disease of aortawith no aneurysm. Upper abdomen reveals area of decreased attenuation of the right kidneysuggestive of pyelonephritis, follow-up CT reveals mild hydronephrosis froma right UP junction stone. Please see accompanying CT abdomen and pelvis report. EKG as per my interpretation : Rate 130, sinus tachycardia, RAD, no ischemia
[2021-02-08 01:27] LABS: T4 Free Thyroxine 1.48 ng/dl (0.8-1.6)
[2021-02-08 01:51] LABS: Appearance Urine Turbid (Clear); Bacteria Urine Automated 1+ (Negative); Bilirubin Urine Negative (Negative); Blood Urine 3+ (Negative); Color Urine Dark Yellow; Glucose Urine UA Negative (Negative); Ketones Urine Trace (Negative); Leukocyte Esterase Urine 2+ (Negative); Nitrite Urine Positive (Negative); Protein Urine 2+ (Negative); RBC Urine Automated >30 /hpf (0-4); Specific Gravity Urine > 1.045 (1.000-1.030); Urobilinogen Urine Negative (Negative); WBC Urine Automated >30 /hpf (0-5)
[2021-02-08] MEDS: NSS + 20MEQ KCL 20 MEQ/1,000 ML BAG IV SCH ×3 (02:34→22:52)
--- NOTE | 2021-02-08 02:34 | Emergency Department Note ---
ED Visit Note I have personally evaluated this patient examined her and reviewed the pertinent labs and data. I have discussed the case with Bebe Yen, the physician psychologist research assistant and agree with the plan. Please refer to the PA note This patient comes in after feeling ill and weak for a day. She was hypoxemic when she came in although she tells me she is not short of breath. She was fluid resuscitated given IV antibiotics and according to the daughter when I see her she is feeling sick and looks significantly better. Her heart rate has come down. Her inflammatory markers are elevated although the lactate cleared with resuscitation. It is possible she could have a pneumonia. Also concerning is her urine does appear to be infected and on CAT scan she does have a obstructing stone. She will be admitted and Dr. Lopez saw her we also have consulted urology to see her in the ER as well. . : Sepsis Qualifiers: Sepsis type: sepsis due to unspecified organism Sepsis acute organ dysfunction status: unspecified Qualified Code(s): A41.9 - Sepsis, unspecified organism
[2021-02-08] MEDS ORDERED: CEFEPIME CONSULT ACTIVE PRN (02:40)
--- NOTE | 2021-02-08 03:27 | Urology Consultation ---
Date of Consultation February 08, 2021 Assessment & Plan (1) Ureterolithiasis: Patient is being admitted by the hospitalist service. We recommend proceeding as follows: Appears as though the patient has sepsis and urinary source is certainly present. Due to the obstructing kidney stone and findings on her urinalysis I discussed case with my attending physician Dr. Tubbs. Due to the patient's marginal blood pressure, tachycardia, imaging, and laboratory findings he is planning on taking patient to the operating room for cystoscopy and possible stent placement. Keep patient n.p.o. until after procedure We recommend continuing with broad-spectrum antibiotics. The patient has rec eived both doxycycline and Zosyn. Both blood and urine cultures have been sent and antibiotics can be tailored based on results of these Recommend providing hydration with IV fluids Additional recommendations be forthcoming based on her clinical course as unfolds as well as operative findings Remainder of plan as directed by the primary service Supervising Physician Co-Signing Physician Notes Agree with above. hypotensive, tachycardic. ill appearing. plan for immediate cystoscopy and right ureteral stent placement. History of Present Illness Reason for Consultation: Sepsis from obstructing kidney stone History of Present Illness This is a 75-year-old female who was brought to the emergency department by her daughter secondary to feeling of generally not feeling well. Patient's daughter supplemented the patient's history and she noted that earlier this evening her mother had some shakes and rigors. There were no fevers to the best of their knowledge. He also noted that her mother was complaining of feeling generally weak with body aches. She has not complained of any chest pain. She did note some shortness of breath. She has not had any nausea or vomiting. She denies any back pain. She denies any dysuria or urinary frequency. Her oral intake seems somewhat decreased over the past 12 to 24 hours. In the emergency department patient had labs and imaging. She did have a CT scan of the abdomen and pelvis. Patient was noted to have right hydronephrosis with a kidney stone at the right UP junction. The stone measured approximately 8.7 mm. Patient was also noted to have a mass in the left adrenal gland measuring 1.7 x [address] scan of the chest showed bilateral lower lobe atelectasis but no discrete infiltrates suggestive of pneumonia were noted. Labs included a CBC where white blood cell count was elevated at 14.9. Her hemoglobin and hematocrit are both noted to be within normal range. Platelet count was noted to be normal. Coagulation studies showed an INR of 1.4. Chemistry profile showed sodium was 135. Potassium was within the normal range. Her BUN and creatinine were both slightly elevated at 22 and 1.23 respectively. There were no significant elevation of LFTs. Patient did have a urinalysis that was concerning for infection as the urine appeared turbid. She was also noted to have positive nitrites, 2+ leukocyte esterase,, greater than 30 white blood cells per high-power field and 1+ bacteria. Patient has had a Covid test and it was noted to be negative. Patient was also tested for influenza A and B which was also noted to be negative. Since arrival to the emergency department the patient has received some fluids and antibiotics and her daughter has noted some clinical improvement. She was in no distress at the time of my interview. Allergies Allergy/AdvReac Type Severity Reaction Status Date / Time No Known Allergies Allergy Verified 02/07/21 23:19 Home Medications Medication Instructions Recorded Confirmed Type aspirin 81 mg tablet,delayed 81 mg PO QAM 02/07/21 02/07/21 History release cholecalciferol (vitamin D3) 50 0 mcg PO QAM 02/07/21 02/07/21 History mcg (2,000 unit) capsule (Vitamin D3) levothyroxine 75 mcg tablet 75 mcg PO QAM 02/07/21 02/07/21 History Patient History Medical History Thyroid disorder Surgical History History of orthopedic surgery Social History Smoking Status: Never smoker Feels Safe at Home: Yes Review of Systems Constitutional: + chills, + fatigue and + weakness; no fever Eyes: no diplopia Ear, Nose, Mouth, Throat: no ear pain and no sore throat Respiratory: + dyspnea; no cough Cardiovascular: no chest pain Gastrointestinal: no abdominal pain, no nausea and no vomiting Genitourinary: no dysuria, no hematuria and no flank pain Musculoskeletal: no back pain Integumentary: no rash Neurologic: + generalized weakness; no localized weakness Physical Exam Constitutional: well developed and well nourished; no acute distress Eyes: no conjunctival abnormality ENMT: Ears: no hearing impairment Neck: trachea midline Respiratory: normal respiratory effort; no respiratory distress and no labored breathing Breath sounds are decreased at bases Cardiovascular: Rate/Rhythm: regular rate, regular rhythm and + tachycardic Vessels: radial pulses present Gastrointestinal (Abdomen): Abdomen is soft, nontender, nondistended. Palpation did not cause pain Musculoskeletal: No calf tenderness Skin: no rashes Neurologic: moves all extremities Psychiatric: A+Ox3, euthymic affect Results & Data ([facility]) Vital Signs (Past 12 Hours) Vital Signs Temp Pulse Pulse Resp BP BP Pulse Ox 02/08/21 02:31 97 02/08/21 01:05 124 H 103/50 L 95 02/08/21 00:34 97 02/08/21 00:00 97 02/07/21 23:53 96 02/07/21 23:07 124/51 L 96 02/07/21 23:06 77 98 02/07/21 22:23 36.5 C 133 H 20 103/52 L 88 L PG Care Time/CCT Total # of Minutes Spent Total Time Spent with Patient: Total time spent is greater than 50% in coordination of care (as documented) at patient's floor/unit and/or counseling patient: Coding Level of Care Code 55228 Inpt Consult Level 5 Diagnoses Ureterolithiasis N20.1
--- NOTE | 2021-02-08 03:55 | Anesthesiology Consultation ---
Date of Service February 08, 2021 Assessment & Plan Chart Review Chart Review: Acceptable Risk for Surgery and Patient NOT seen in Pre Admission Testing Consults Requested none ASA [id number] Proposed Anesthesia Anesthesia Type: MAC Additional Comments: covid test neg. History Surgery Operation Date: 02/08/21 04:00 Proposed Procedures p Cystoscopy Retrograde - Erasmo Tubbs MD Height/Weight Height: 5 ft 2 in Weight: 81.1 kg Allergies Allergy/AdvReac Type Severity Reaction Status Date / Time No Known Allergies Allergy Verified 02/07/21 23:19 Medications Home Medications Medication Instructions Recorded Confirmed Last Taken aspirin 81 mg tablet,delayed 81 mg PO QAM 02/07/21 02/07/21 02/07/21 release cholecalciferol (vitamin D3) 50 0 mcg PO QAM 02/07/21 02/07/21 02/07/21 mcg (2,000 unit) capsule (Vitamin D3) levothyroxine 75 mcg tablet 75 mcg PO QAM 02/07/21 02/07/21 02/07/21 Active Medications Generic Name Dose Route Start Last Admin Trade Name Freq PRN Reason Stop Dose Admin Potassium Chloride/Sodium Chloride 20 meq in 1,000 mls @ 100 mls/hr 02/08/21 01:30 02/08/21 02:34 Normal Saline W/20 Meq Kcl IV 03/10/21 01:29 100 mls/hr .Q10H SHELDON Administration NPO Date Last Intake of Fluids: 02/07/21 Time Last Intake of Fluids: 14:00 Last Intake of Fluids Comment: water Date Last Intake of Solids: 02/07/21 Time Last Intake of Solids: 14:00 Last Intake of Solids Comment: mashed potatoes Past Medical History Medical History Thyroid disorder Exercise / Class Metabolic Activity III < 4 Walking/Shop/Light housework Past Surgical History Surgical History History of orthopedic surgery Past Anesthesia History No Hx of Anesthesia Complications and No Family Hx of Anesthesia Complications History of PONV No Hx of PONV and No Hx of Motion Sickness Social History Smoking Status: Never smoker Physical Exam Vital Signs Last Vital Signs Temp 36.5 C 02/07/21 22:23 Pulse 124 H 02/08/21 01:05 Resp 20 02/08/21 00:00 BP 105/51 L 02/08/21 02:01 Pulse Ox 97 02/08/21 03:03 Testing Laboratory Results 02/07/21 22:39 02/07/21 22:39 PT 13.5 Seconds (9.0-12.0) H 02/07/21 22:39 INR 1.4 (0.9-1.1) H 02/07/21 22:39 APTT 27.7 Seconds (21.0-31.0) 02/07/21 22:39 Urine Color Dark Yellow 02/08/21 01:26 Urine Appearance Turbid (Clear) A 02/08/21 01:26 Urine pH 5.0 (4.5-7.5) 02/08/21 01:26 Ur Specific [place] > 1.045 (1.000-1.030) H 02/08/21 01:26 Urine Protein 2+ (Negative) H 02/08/21 01:26 Urine Glucose (UA) Negative (Negative) 02/08/21 01:26 Urine Ketones Trace (Negative) H 02/08/21 01:26 Urine Nitrite Positive (Negative) A 02/08/21 01:26 Ur Leukocyte Esterase 2+ (Negative) H 02/08/21 01:26 Urine WBC (Auto) >30 /hpf (0-5) H 02/08/21 01:26 Urine RBC (Auto) >30 /hpf (0-4) H 02/08/21 01:26 U Hyaline Cast (Auto) 1-5 /lpf (0-5) 02/08/21 01:26 U Epithel Cells (Auto) 10-20 /lpf (0-5) H 02/08/21 01:26 Urine Bacteria (Auto) 1+ (Negative) H 02/08/21 01:26 Electrocardiogram Date: 02/07/21 Findings: + ST @ (at 132;IRBBB) Chest X-Ray Date: 02/07/21 Findings: + NAD and + atelectasis
[2021-02-08] MEDS ORDERED: ATROPINE SULFATE 0.1 MG/ML 10ML SYR IV PRN (04:20)
[2021-02-08] MEDS ORDERED: fentaNYL citrate 100 MCG/2 ML VIAL IV PRN (04:20)
[2021-02-08] MEDS ORDERED: LABETALOL HCL IV 5 MG/ML 20ML IV PRN (04:20)
[2021-02-08] MEDS ORDERED: ONDANSETRON INJ 2 MG/ML 2 ML VIAL IV PRN (04:20)
[2021-02-08] MEDS ORDERED: FLUMAZENIL 0.1 MG/1 ML 10 ML VIAL IV PRN (04:20)
[2021-02-08] MEDS ORDERED: PROMETHAZINE HCL 12.5 MG in SODIUM CHLORIDE 0.9% 50 ML IV PRN ×2 (04:20→07:44)
[2021-02-08] MEDS ORDERED: NALOXONE HCL 0.4 MG/1 ML VIAL/CARP IV PRN (04:20)
[2021-02-08] MEDS ORDERED: ePHEDrine sulfate 50 MG/ML AMP IV PRN (04:20)
[2021-02-08] MEDS ORDERED: fentaNYL citrate 100 MCG/2 ML VIAL ONE (04:29)
[2021-02-08] MEDS ORDERED: MIDAZOLAM HCL 1 MG/ML 2ML VIAL ONE (04:29)
[2021-02-08] MEDS ORDERED: PROPOFOL IV EMULSION 10 MG/ML 20 ML VIAL IV ONE (04:30)
--- NOTE | 2021-02-08 05:09 | Operative Report ---
PG Post Operative Report Pre & Post Diagnosis Operation Date: 02/08/21 04:00 Pre-Op Diagnosis: Septic Right Kidney Stone Post-Op Diagnosis: Septic Right Kidney Stone I identified the patient and participated in the time-out.: Yes Procedure Operation Date: 02/08/21 04:00 Actual Procedures p Cystoscopy and Right Ureteral Stent Placement - Erasmo Tubbs MD Surgeon Charly Tubbs MD Power Brake Rebuilder none Estimated Blood Loss 0 Findings Consistent with Post-Op Diagnosis Specimens none Description of Procedure The patient was identified in the preoperative holding area, appropriate informed consents were reviewed and completed and the patient was transferred to the operative suite. Upon arrival, appropriate antibiotics and anesthesia were administered and the patient was placed in dorsal lithotomy position and prepped and draped in sterile fashion. Begin the case up as a 22 [place] cystoscope with 30 degree lens. She had a relatively healthy appearing bladder without any stones. Inspection revealed ureteral orifices to be in orthotopic position. I cannulated the right UO and advanced a wire to the kidney. I can easily identify the stone on fluoroscopy and the wire was able to advance beyond the stone. The stone was the wire bypassed the stone there was a discharge of purulent urine. I subsequently placed a 6 [place] by 24 cm double-J stent seeing good curl in the kidney as well as the bladder. I decompressed the bladder and end of the case. She was reversed of anesthesia and taken to the recovery room in stable condition. There were no complications. I attest to the content of the Intraoperative Record and any orders documented therein. Any exceptions are noted below.
--- NOTE | 2021-02-08 05:45 | Anesthesiology Progress Note ---
Date of Service February 08, 2021 Anesthesia Post Procedure Vital Signs Vital Signs: Temp Pulse Pulse Pulse Resp BP BP 02/08/21 05:35 99 H 20 89/49 L 02/08/21 05:25 101 H 21 93/50 L 02/08/21 05:18 36.3 C L 108 H 19 95/46 L 02/08/21 03:03 02/08/21 02:31 02/08/21 02:01 105/51 L 02/08/21 01:05 124 H 103/50 L 02/08/21 01:00 120 H 103/50 L 02/08/21 00:34 02/08/21 00:00 118 H 20 105/59 L 02/07/21 23:53 02/07/21 23:07 124/51 L 02/07/21 23:06 77 02/07/21 22:31 117 H 20 124/51 L 02/07/21 22:23 36.5 C 133 H 20 103/52 L Pulse Ox 02/08/21 05:35 97 02/08/21 05:25 96 02/08/21 05:18 95 02/08/21 03:03 97 02/08/21 02:31 97 02/08/21 02:01 95 02/08/21 01:05 95 02/08/21 01:00 97 02/08/21 00:34 97 02/08/21 00:00 96 02/07/21 23:53 96 02/07/21 23:07 96 02/07/21 23:06 98 02/07/21 22:31 97 02/07/21 22:23 88 L Transfer of Care Handoff Completed per policy Notes Mental Status: alert / awake / arousable Patient Amnestic to Procedure: Yes Nausea / Vomiting: adequately controlled Pain: adequately controlled Airway Patency, RR, SpO2: stable & adequate BP & HR: stable & adequate and see Notes below Hydration State: stable & adequate Anesthetic Complications: no major complications apparent Notes: pt is septic w/ BP hovering at 90's sys
[2021-02-08 07:42] LABS: Estimated Average Glucose 108 mg/dl; Hemoglobin A1C 5.4 % (4.5-5.6)
[2021-02-08] MEDS ORDERED: ACETAMINOPHEN 325 MG TAB PO PRN (07:44)
[2021-02-08] MEDS ORDERED: HYDROmorphone INJ 0.5 MG/0.5 ML SYR IV PRN (07:44)
[2021-02-08] MEDS ORDERED: traMADol HCL 50 MG TABLET PO PRN (07:44)
[2021-02-08] MEDS ORDERED: INFLUENZA VACCINE HIGH DOSE PF 65+ 0.7 ML SYR IM ONE (07:47)
--- NOTE | 2021-02-08 08:03 | CT Scan Report ---
CT chest diagnostic wo con CT DOSE: 558.42 mGy.cm CLINICAL HISTORY: 75 years-old Female with cough, low o2. Acute cough with hypoxia TECHNIQUE: Multiaxial CT images of the chest were performed without contrast. A dose lowering techni que was utilized adhering to the principles of ALARA. COMPARISON: CT abdomen and pelvis 02/07/2021, CTA chest 06/13/2007 FINDINGS: Study is degraded by respiratory motion artifact. Moderate cardiomegaly without pericardial effusion. Coronary artery calcifications. No thoracic aortic aneurysm. Marked dilation of the pulmon radha artery with the main pulmonary artery measuring up to 5.5 cm transversely. Atherosclerosis of the aorta. No adenopathy. Trace right pleural effusion. No pneumothorax. Linear subsegmental bibasilar consolidative opacities are suggestive of atelectasis. Mild groundglass densities with mosaic attenuation of the right upper and left lower lobes. No overt pulmonary edema, suspicious nodule or mass. 3 mm solid nodule of the r ight upper lobe on image 34 series 4 is of low clinical suspicion however appears to be new from [facility]. The central airways appear patent. Heterogeneous enhancement of the right kidney. Contrast is noted within the left renal collecting sys tem. Left adrenal gland lesion is better seen on comparison CT abdomen and pelvis. Unremarkable soft tissues. Degenerative changes of the spine and shoulders. No acute fracture. IMPRESSION: 1. Limited exam secondary to respiratory motion artifact. 2. Cardiomegaly with pulmonary artery hypertension. 3. Trace right pleural effusion with subsegmental bibasilar atelectasis. 4. Mild bilateral air trapping. 5. Heterogeneous enhancement of the right kidney is suggestive of delayed nephrogram secondary to the obstructing calculus of the right uteropelvic junction as described on CT study of same day. These f indings should be correlated with urinalysis to exclude infection. ACT 112: Negative or not required by law. Electronically signed by: Fausto Grubbs M.D. 02/08/2021 8:02 AM
--- NOTE | 2021-02-08 08:21 | XRay Report ---
XR chest 1V portable INDICATION: MN ^SEPSIS . TECHNIQUE: Single frontal radiograph of the chest was obtained. Comparison: Comparison is made to chest one view 04/10/2017 FINDINGS: No lines and tubes are seen. Cardiomegaly is noted. The lungs are clear. Prominence of the bilateral sabrina is unchanged. No evidence of pleural effusion or pneumothorax. Multiple old healed left rib frac tures again noted. IMPRESSION: No acute chest disease. Suggestion of pulmonary arterial hypertension. ACT 112: Negative or not required by law. Electronically signed by: Shai Pineda M.D. 02/08/2021 8:19 AM
--- NOTE | 2021-02-08 08:33 | Fluoroscopy Report ---
FL retrograde includes kub CLINICAL HISTORY: RT SIDE STENT COMPARISON STUDY: None. FLUOROSCOPY TIME: 10 seconds. FINDINGS: 2 fluoroscopic spot images of the abdomen and pelvis demonstrate retrograde placement of a guidewire within the right renal collecting system followed by placement of a right ureteral stent. O nly the proximal portion of the stent is identified but appears in good position. IMPRESSION: Fluoroscopy provided for right ureteral stent placement. ACT 112: Negative or not required by law. Electronically signed by: Lee Hurley M.D. 02/08/2021 8:32 AM
--- NOTE | 2021-02-08 08:52 | CT Scan Report ---
ABDOMEN AND PELVIS CT WITH IV CONTRAST CT DOSE: 621.99 mGy.cm HISTORY: Lower abdominal pain. TECHNIQUE: Multiaxial CT images of the abdomen and pelvis were performed following the use of intrave nous contrast. A dose lowering technique was utilized adhering to the principles of ALARA. COMPARISON STUDY: Chest CT 02/08/2021. FINDINGS: Please refer to same day chest CT for further evaluation of the lung bases. Suboptimal eval uation of the abdomen and pelvis due to the motion artifact. There is no pneumoperitoneum. No pneumat osis. There is a right hip prosthesis. Old, healed bilateral pubic ring fractures are noted. There is a single screw through the sacroiliac joints. The heart is mildly enlarged. There appear to be a few tiny gallstones. The liver, pancreas, left kidney are unremarkable. A few calcified granulomas seen within the spleen. There are bilateral indeterminate adrenal gland nodules with the largest on the le ft measuring 1.7 cm. No retroperitoneal lymphadenopathy. Moderate calcified plaque within the normal caliber abdominal aorta. Delayed right nephrogram secondary to the obstructing 8 mm stone within the ureteropelvic junction resulting in mild right hydronephrosis. There is mild right perinephric edema noted. Small amount of gas within the decompressed bladder. This may be due to prior catheterization. No left-sided hydronephrosis. No retroperitoneal lymphadenopathy. The uterus is unremarkable. There is a small right ovarian cyst. Normal left ovary. No pelvic free fluid. Moderate stool within the col on. No bowel wall thickening or obstruction. IMPRESSION: 1. An 8 mm obstructing stone within the right ureteropelvic junction resulting in mild right hydronep hrosis. 2. Cholelithiasis. 3. No definite bowel wall thickening or obstruction. 4. Please refer to the same day chest CT for further evaluation of the lung bases. ACT 112: Negative or not required by law. Electronically signed by: Lee Hurley M.D. 02/08/2021 8:51 AM
[2021-02-08] MEDS ORDERED: CEFEPIME 2,000 MG in SYRINGE 0 ML IV SCH (09:00)
[2021-02-08] MEDS: ASPIRIN 81 MG ECTAB PO SCH (09:03)
[2021-02-08] MEDS: HEPARIN SOD 5,000 UNIT/0.5 ML VIAL SQ SCH ×3 (09:03→22:50)
[2021-02-08] MEDS: LEVOTHYROXINE SODIUM 75 MCG TABLET PO SCH (09:03)
--- NOTE | 2021-02-08 14:44 | Ultrasound Report ---
US venous doppler LE LT INDICATION: MN ^L LE edema, warmth, r/o dvt. COMPARISON: None available at the time of this dictation. TECHNIQUE: Left lower extremity real-time compression venous ultrasound with Color Doppler imaging. Utilizing real-time ultrasonic imaging multiple real time high-resolution ultrasonic images with comp ression and noncompression maneuvers of the deep venous system in addition to color doppler imaging w ere performed from the common femoral vein through the proximal calf veins. FINDINGS: Currently there is normal compressibility of the deep venous system from the common femoral vein thro ugh the proximal calf veins. No current evidence of acute thrombosis is identified. Of note, the alfredo jona vein is only partially visualized. Impression: No evidence of deep venous thrombus. ACT 112: Negative or not required by law. Electronically signed by: Shai Pineda M.D. 02/08/2021 2:43 PM
[2021-02-08 15:19] LABS: Creatinine Clr Calc Pharmacy 40.4 ml/min; Est GFR (African American) 51.7 ml/min; Est GFR (Non-African American) 44.6 ml/min
--- NOTE | 2021-02-08 15:53 | Hospitalist Progress Note ---
Date of Service February 08, 2021 Assessment & Plan (1) Severe sepsis: Plan: 75-year-old female with history of postsurgical hypothyroidism, hypertension presenting with weakness abdominal pain, dry cough. Severe sepsis, likely secondary to complicated UTI secondary to ureteral stone Possible atypical pneumonia Afebrile this morning Blood culture: Pending Urine culture: Pending Bio fire panel: Negative, Covid screen: Negative CT abdomen and pelvis: 1. An 8 mm obstructing stone within the right ureteropelvic junction resulting in mild right hydronephrosis. 2. Cholelithiasis. 3. No definite bowel wall thickening or obstruction. 4. Please refer to the same day chest CT for further evaluation of the lung bases. CT chest: Mild groundglass densities with mosaic attenuation of the right upper and left lower lobes. No overt pulmonary edema, suspicious nodule or mass. 3 mm solid nodule of the right upper lobe on image 34 series 4 is of low clinical suspicion however appears to be new from comparison. The central airways appear patent. IMPRESSION: 1. Limited exam secondary to respiratory motion artifact. 2. Cardiomegaly with pulmonary artery hypertension. 3. Trace right pleural effusion with subsegmental bibasilar atelectasis. 4. Mild bilateral air trapping. 5. Heterogeneous enhancement of the right kidney is suggestive of delayed nephrogram secondary to the obstructing calculus of the right uteropelvic junction as described on CT study of same day. These findings should be correlated with urinalysis to exclude infection. 02/08/2021: Status post cystoscopy with stent placement by Dr. Tubbs Continue with cefepime plus doxycycline day #1 Follow-up cultures We will order speech therapy evaluation given CAT scan findings concerning for possible aspiration although patient denies any signs or symptoms of aspiration Postsurgical hypothyroidism, TSH elevated Continue levothyroxine DVT prophylaxis. Heparin subcutaneous Full code Disposition Lives at home will order PT and OT evaluation Admission and Anticipated Discharge Date Admission Date: February 08, 2021 Subjective Follow-up for sepsis, UTI, ureteral stone, pneumonia, etc. Seen sitting up in bed comfortable, not in distress, on 2 L of oxygen via nasal cannula Good spirits Smiling Oriented x2, answers most questions appropriately States she feels better compared to admission Denies abdominal pain, flank pain, nausea vomiting, problems with urination Has occasional cough, but no shortness of breath, sputum production, chills ,Denies chest pain, palpitations, dizziness No other symptoms Review of Systems Review of Systems: all noted and negative except for above Physical Exam Physical Exam: General- oriented x 2, not in distress, speaks in sentences with no effort or accessory muscle use Head- atraumatic Eyes- PERRL, EOMI, anicteric ENT- oropharynx clear Neck- supple, no JVD, no adenopathy, no thyromegaly; carotids +2/2, no bruits appreciated Lungs- clear to auscultation bilaterally, no rales/wheezes Heart- normal rate, regular rhythm; no murmur, no gallop, no rub appreciated Abdomen- normal bowel sounds, nondistended, soft, nontender, no masses or hepatosplenomegaly Extremities-left lower extremity: Positive mild edema with mild warmth, right lower extremity essentially normal, no calf tenderness; peripheral pulses intact Neuro- alert, oriented x 2; CN 2-12 grossly intact; motor 5/5 bilaterally;sensation 100% on all extremities; no other gross focal neurologic deficits Skin- warm & dry Results & Data Results & Data ([facility]) Vital Signs (Past 12 Hours) Vital Signs Temp Pulse Pulse Pulse Resp BP BP 02/08/21 12:00 36.9 C 110 H 18 89/42 L 02/08/21 08:30 36.8 C 106 H 20 99/56 L 02/08/21 07:38 36.9 C 100 H 20 98/42 L 02/08/21 07:00 101 H 22 107/41 L 02/08/21 06:45 99 H 22 106/46 L 02/08/21 06:30 102 H 22 97/52 L 02/08/21 06:15 107 H 24 102/71 02/08/21 06:00 36.5 C 101 H 22 107/45 L 02/08/21 05:45 98 H 20 101/66 02/08/21 05:35 99 H 20 89/49 L 02/08/21 05:25 101 H 21 93/50 L 02/08/21 05:18 36.3 C L 108 H 19 95/46 L 02/08/21 03:03 02/08/21 02:31 02/08/21 02:01 105/51 L 02/08/21 01:05 124 H 103/50 L 02/08/21 01:00 120 H 103/50 L Pulse Ox 02/08/21 12:00 95 02/08/21 08:30 95 02/08/21 07:38 95 02/08/21 07:00 97 02/08/21 06:45 96 02/08/21 06:30 97 02/08/21 06:15 95 02/08/21 06:00 92 02/08/21 05:45 94 02/08/21 05:35 97 02/08/21 05:25 96 02/08/21 05:18 95 02/08/21 03:03 97 02/08/21 02:31 97 02/08/21 02:01 95 02/08/21 01:05 95 02/08/21 01:00 97 all noted and reviewed including below
--- NOTE | 2021-02-08 16:58 | Electrocardiogram Report ---
Test Reason : Blood Pressure : / mmHG Vent. Rate : 132 BPM Atrial Rate : 117 BPM P-R Int : 196 ms QRS Dur : 098 ms QT Int : 284 ms P-R-T Axes : 026 094 040 degrees QTc Int : 420 ms Sinus rhythm with PVCs Rightward axis Incomplete right bundle branch block T wave abnormality, consider inferior ischemia Abnormal ECG When compared with ECG of 10-APR-2017 09:44, T wave inversion now evident in Inferior leads Nonspecific T wave abnormality now evident in Lateral leads Confirmed by Charly Hi ([id number]) on 02/08/2021 4:58:12 PM Referred By: REFERRED SELF Confirmed By:Edy Hi
[2021-02-08] MEDS: CEFEPIME 2,000 MG in SYRINGE 0 ML IV SCH ×2 (21:24→22:10)
[2021-02-08] MEDS: DOXYCYCLINE HYCLATE 100 MG CAP PO SCH (22:10)
[2021-02-09] MEDS: HEPARIN SOD 5,000 UNIT/0.5 ML VIAL SQ SCH ×3 (05:53→21:27)
[2021-02-09] MEDS: LEVOTHYROXINE SODIUM 75 MCG TABLET PO SCH (06:13)
[2021-02-09 06:32] LABS: Basophils # (auto) 0.02 K/uL (0-0.2); Basophils % (auto) 0.1 %; Eosinophils # (auto) 0.01 K/uL (0-0.5); Eosinophils % (auto) 0.1 %; Hemoglobin 11.2 g/dL (12.0-16.0); Immature Granulocytes # (auto) 0.02 K/uL (0.00-0.02); Immature Granulocytes % (auto) 0.1 %; Lymphocytes # (auto) 0.86 K/uL (1.2-3.4); Mean Corpuscular Hemoglobin 27.9 pg (25-34); Mean Corpuscular Hgb Conc 31.1 g/dL (32-36); Mean Corpuscular Volume 89.8 fL (80-100); Mean Platelet Volume 9.8 fL (7.4-10.4); Monocytes # (auto) 0.91 K/uL (0.11-0.59); Monocytes % (auto) 6.3 %; Neutrophils # (auto) 12.63 K/uL (1.4-6.5); Neutrophils % (auto) 87.4 %; Platelet Count 134 K/uL (130-400); RDW Coefficient of Variation 15.5 % (11.5-14.5); RDW Standard Deviation 51.2 fL (36.4-46.3); Red Blood Count 4.01 M/uL (4.2-5.4); White Blood Count 14.45 K/uL (4.8-10.8)
[2021-02-09 07:09] LABS: BUN Creatinine Ratio 28.7 (10-20); Calcium 8.6 mg/dl (8.5-10.1); Est GFR (African American) 72.5 ml/min; Est GFR (Non-African American) 62.5 ml/min; Potassium 4.3 mmol/L (3.5-5.1)
[2021-02-09] MEDS: CEFEPIME 2,000 MG in SYRINGE 0 ML IV SCH ×3 (07:42→23:15)
[2021-02-09] MEDS: DOXYCYCLINE HYCLATE 100 MG CAP PO SCH ×2 (07:42→21:27)
[2021-02-09] MEDS: ASPIRIN 81 MG ECTAB PO SCH (08:07)
--- NOTE | 2021-02-09 09:25 | Urology Progress Note ---
Date of Service February 09, 2021 Assessment & Plan (1) Ureterolithiasis: (2) Acute UTI: (3) Sepsis: Plan: - Pt POD#1 s/p cystoscopy and right ureteral stent placement - Doing well, progressing as expected - Afebrile, lab work reviewed - creatinine 0.90, WBC 14.45 - UC&S and 2/2 BCx prelim gram negative bacilli - on IV Cefepime and doxycycline, follow cultures - Tolerating right ureteral stent with minimal bother - Okay to d/c from perspective when medically stable, also being treated for possible atypical pneumonia - She will need course of antibiotics based on sensitivities for total of 14 days - Recommend d/c with Tamsulosin, prn Pyridium and prn pain medication for stent management - Expected clinical course reviewed, all questions answered - Will arrange outpatient follow-up with our service to discuss definitive stone management Admission and Anticipated Discharge Date Admission Date: February 08, 2021 Subjective 75 yo F POD #1 s/p cystoscopy and right ureteral stent placement with Dr. Tubbs. Pt seen and examined at bedside this AM. She is awake, alert and sitting up in bed eating breakfast. Reports feeling better today. No acute issues overnight. No abdominal or flank pain. Tolerating PO diet, no nausea or vomiting. She is voiding spontaneously, no dysuria or hematuria. No fever or chills overnight. She would like to go home today. Chart review: Afebrile, creatinine 0.90, WBC 14.45, UC&S and 2/2 BCx prelim gram negative bacilli. On IV Cefepime and Doxycycline. Review of Systems Constitutional: as per Subjective / HPI Gastrointestinal: as per Subjective / HPI Genitourinary: as per Subjective / HPI Physical Exam Constitutional: well developed and well nourished; no acute distress and not ill appearing Respiratory: able to speak in complete sentences; no respiratory distress and no labored breathing Gastrointestinal (Abdomen): Inspection/Auscultation: abdomen normal to inspection; abdomen not distended Neurologic: moves all extremities and awake Psychiatric: AOx 2 Results & Data ([facility]) Vital Signs (Past 12 Hours) Vital Signs Temp Pulse Pulse Resp BP Pulse Ox 02/09/21 07:00 36.9 C 97 H 20 131/67 90 02/09/21 03:17 36.4 C L 98 H 20 102/66 92 02/09/21 01:08 104 H 02/08/21 23:23 36.8 C 107 H 20 102/58 L 92 PG Care Time/CCT Total # of Minutes Spent Total Time Spent with Patient: Total time spent is greater than 50% in coordination of care (as documented) at patient's floor/unit and/or counseling patient: Coding Level of Care Code 20305 Subseq Hosp Care Lvl 2 Diagnoses Ureterolithiasis N20.1 Acute UTI N39.0 Sepsis A41.9 Sepsis acute organ dysfunction status: unspecified Sepsis type: sepsis due to unspecified organism (1) Sepsis Sepsis acute organ dysfunction status: unspecified Sepsis type: sepsis due to unspecified organism Qualified Code(s): A41.9 - Sepsis, unspecified organism
--- NOTE | 2021-02-09 16:20 | Hospitalist Progress Note ---
Date of Service February 09, 2021 Assessment & Plan (1) Severe sepsis: Plan: 75-year-old female with history of postsurgical hypothyroidism, hypertension presenting with weakness abdominal pain, dry cough. Severe sepsis, likely secondary to complicated UTI secondary to ureteral stone Possible atypical pneumonia CT abdomen and pelvis: 1. An 8 mm obstructing stone within the right ureteropelvic junction resulting in mild right hydronephrosis. 2. Cholelithiasis. 3. No definite bowel wall thickening or obstruction. 4. Please refer to the same day chest CT for further evaluation of the lung bases. CT chest: Mild groundglass densities with mosaic attenuation of the right upper and left lower lobes. No overt pulmonary edema, suspicious nodule or mass. 3 mm solid nodule of the right upper lobe on image 34 series 4 is of low clinical suspicion however appears to be new from comparison. The central airways appear patent. IMPRESSION: 1. Limited exam secondary to respiratory motion artifact. 2. Cardiomegaly with pulmonary artery hypertension. 3. Trace right pleural effusion with subsegmental bibasilar atelectasis. 4. Mild bilateral air trapping. 5. Heterogeneous enhancement of the right kidney is suggestive of delayed nephrogram secondary to the obstructing calculus of the right uteropelvic junction as described on CT study of same day. These findings should be correlated with urinalysis to exclude infection. 02/08/2021: Status post cystoscopy with stent placement by Dr. Tubbs Afebrile, leukocytosis about the same 14,000 Subjectively feels improving Blood culture: Gram-negative bacilli Urine culture: Pending [employer] panel: Negative, Covid screen: Negative Continue with cefepime plus doxycycline day #2 Follow-up cultures ID consulted We will order speech therapy evaluation given CAT scan findings concerning for possible aspiration although patient denies any signs or symptoms of aspiration Postsurgical hypothyroidism, TSH elevated Continue levothyroxine DVT prophylaxis. Heparin subcutaneous Full code Disposition Lives at home will order PT and OT evaluation Admission and Anticipated Discharge Date Admission Date: February 08, 2021 Subjective Follow-up for UTI, bacteremia, right UPJ stone, status post cystoscopy and stent placement, pneumonia etc. Seen sitting up in bed, comfortable, having lunch, not distressed States she feels tired today, was not able to get proper sleep last night Otherwise feels improved Denies abdominal pain, flank pain, fevers or chills, nausea vomiting, problems with urination No chest pain, palpitations, dizziness, headache No other symptoms Review of Systems Review of Systems: all noted and negative except for above Physical Exam Physical Exam: General- oriented x 3, not in distress, speaks in sentences with no effort or accessory muscle use Eyes- anicteric Neck- no JVD Lungs-mild rales at the bases, no wheezing, good air entry bilaterally Heart- normal rate, regular rhythm; no murmurs Abdomen- normal bowel sounds, nondistended, soft, nontender No CVA tenderness Extremities-minimal left lower extremity edema, warmth, erythema but no tenderness, no calf tenderness Neuro- alert, oriented x 3; no gross focal neurologic deficits Skin- warm & dry Results & Data Results & Data ([facility]) Vital Signs (Past 12 Hours) Vital Signs Temp Pulse Resp BP BP Pulse Ox 02/09/21 15:37 36.7 C 90 18 105/58 L 91 02/09/21 12:00 36.7 C 93 H 18 106/68 93 02/09/21 07:00 36.9 C 97 H 20 131/67 90 all noted and reviewed including below
[2021-02-10] MEDS: LEVOTHYROXINE SODIUM 75 MCG TABLET PO SCH (06:09)
[2021-02-10] MEDS: HEPARIN SOD 5,000 UNIT/0.5 ML VIAL SQ SCH ×3 (06:09→21:22)
[2021-02-10] MEDS: DOXYCYCLINE HYCLATE 100 MG CAP PO SCH ×2 (07:29→21:22)
[2021-02-10] MEDS: ASPIRIN 81 MG ECTAB PO SCH (07:29)
[2021-02-10] MEDS: CEFEPIME 2,000 MG in SYRINGE 0 ML IV SCH (07:32)
[2021-02-10 07:48] LABS: Basophils # (auto) 0.03 K/uL (0-0.2); Basophils % (auto) 0.2 %; Eosinophils # (auto) 0.06 K/uL (0-0.5); Eosinophils % (auto) 0.5 %; Hematocrit (blood only) 37.4 % (37-47); Hemoglobin 11.5 g/dL (12.0-16.0); Immature Granulocytes # (auto) 0.02 K/uL (0.00-0.02); Immature Granulocytes % (auto) 0.2 %; Lymphocytes # (auto) 0.81 K/uL (1.2-3.4); Lymphocytes % (auto) 6.7 %; Mean Corpuscular Hemoglobin 27.9 pg (25-34); Mean Corpuscular Hgb Conc 30.7 g/dL (32-36); Mean Corpuscular Volume 90.8 fL (80-100); Mean Platelet Volume 9.6 fL (7.4-10.4); Monocytes # (auto) 0.95 K/uL (0.11-0.59); Monocytes % (auto) 7.9 %; Neutrophils # (auto) 10.22 K/uL (1.4-6.5); Neutrophils % (auto) 84.5 %; Platelet Count 149 K/uL (130-400); RDW Coefficient of Variation 15.5 % (11.5-14.5); RDW Standard Deviation 52.2 fL (36.4-46.3); Red Blood Count 4.12 M/uL (4.2-5.4); White Blood Count 12.09 K/uL (4.8-10.8)
[2021-02-10 08:00] LABS: BUN Creatinine Ratio 33.6 (10-20); Calcium 9.1 mg/dl (8.5-10.1); Est GFR (African American) 96.6 ml/min; Est GFR (Non-African American) 83.3 ml/min; Potassium 4.2 mmol/L (3.5-5.1)
[2021-02-10] MEDS ORDERED: cefTRIAXone SODIUM 2,000 MG in DEXTROSE 5% 50 ML IV SCH (18:00)
--- NOTE | 2021-02-10 21:45 | Discharge Summary ---
Date of Service February 10, 2021 Admission HPI Per Admitting Provider History obtained from patient, family, and records. Medical history significant for postsurgical hypothyroidism. Few days history of achy right-sided abdominal pain with fever, chills, dry cough symptoms without chest pain, S OB. Patient denies hematuria or prior episodes. No known recent COVID-19 contacts. Patient brought to the ER by daughter. Given IV Zosyn for sepsis. 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 Discharge Data Allergies Allergy/AdvReac Type Severity Reaction Status Date / Time No Known Allergies Allergy Verified 02/07/21 23:19 Consultations 02/08/21 00:24 ED Decision to Admit Stat 02/08/21 07:44 Consult Urology Routine 02/09/21 09:41 Consult Infectious Diseases Routine Procedures Performed Operation Date: 02/08/21 04:00 Actual Procedures p Cystoscopy and Right Ureteral Stent Placement - Erasmo Tubbs MD Ordered Studies 02/07/21 22:46 CT abd pelvis IV con only Urgent 02/08/21 01:16 CT chest diagnostic wo con Urgent 02/08/21 04:48 FL retrograde includes kub Routine 02/08/21 14:30 US venous doppler LE LT Stat Hospital Course (1) Severe sepsis: 75-year-old female with history of postsurgical hypothyroidism, hypertension presenting with weakness abdominal pain, dry cough. Severe sepsis, likely secondary to complicated UTI secondary to ureteral stone Possible atypical pneumonia CT abdomen and pelvis: 1. An 8 mm obstructing stone within the right ureteropelvic junction resulting in mild right hydronephrosis. 2. Cholelithiasis. 3. No definite bowel wall thickening or obstruction. 4. Please refer to the same day chest CT for further evaluation of the lung bases. CT chest: Mild groundglass densities with mosaic attenuation of the right upper and left lower lobes. No overt pulmonary edema, suspicious nodule or mass. 3 mm solid nodule of the right upper lobe on image 34 series 4 is of low clinical suspicion however appears to be new from comparison. The central airways appear patent. IMPRESSION: 1. Limited exam secondary to respiratory motion artifact. 2. Cardiomegaly with pulmonary artery hypertension. 3. Trace right pleural effusion with subsegmental bibasilar atelectasis. 4. Mild bilateral air trapping. 5. Heterogeneous enhancement of the right kidney is suggestive of delayed nephrogram secondary to the obstructing calculus of the right uteropelvic junction as described on CT study of same day. These findings should be correlated with urinalysis to exclude infection. 02/08/2021: Status post cystoscopy with stent placement by Dr. Tubbs Afebrile, leukocytosis about the same 14,000 Subjectively feels improving Blood culture: Gram-negative bacilli Urine culture: Pending Bio fire panel: Negative, Covid screen: Negative Continue with cefepime plus doxycycline day #2 Follow-up cultures ID consulted We will order speech therapy evaluation given CAT scan findings concerning for possible aspiration although patient denies any signs or symptoms of aspiration Postsurgical hypothyroidism, TSH elevated Continue levothyroxine DVT prophylaxis. Heparin subcutaneous Full code Disposition Lives at home will order PT and OT evaluation Discharge Plan Discharge Items Reason For Visit: SEPSIS Condition on Discharge: Fair Follow-up/Referrals: Aubrey Ham [Staff Physician] - Stand-Alone Forms: [facility] Medications and DC Order Prescriptions: No Action aspirin 81 mg Tablet,Delayed Release (Dr/Ec) 81 mg PO QAM RF: 0 levothyroxine 75 mcg tablet 75 mcg PO QAM RF: 0 cholecalciferol (vitamin D3) [Vitamin D3] 50 mcg (2,000 unit) Capsule 0 mcg PO QAM RF: 0 Admission Data Admit Date/Time: 02/08/21 05:11 Attending Provider: Murray Morales Admit Provider: Melvin Archer Primary Care Provider: Matt Banda Other Providers: Ina Brown ; Kathia Green I. ; Edgar Arteaga ; Yonis Herrera ; Erasmo Tubbs ; Nara Perez ; Adin Owusu ; Tanisha Flores ; Daniella Thrasher ; Georgia Joseph ; Jose Denise ; Moses Conklin ; Grisel Gomes ; Irene Joseph ; Wong Smith ; Mj Garcia ; Margarita Dennis ; Oscar Zazueta I. ; Vishnu Ramirez II ; Sara Lazo ; Iron Brooke ; Melvin Archer ; Wyatt Alvarez ; Vadim Mills
--- NOTE | 2021-02-10 21:47 | Hospitalist Progress Note ---
Date of Service February 10, 2021 Assessment & Plan (1) Severe sepsis: Plan: 75-year-old female with history of postsurgical hypothyroidism, hypertension presenting with weakness abdominal pain, dry cough. Severe sepsis, likely secondary to complicated UTI secondary to ureteral stone Possible atypical pneumonia CT abdomen and pelvis: 1. An 8 mm obstructing stone within the right ureteropelvic junction resulting in mild right hydronephrosis. 2. Cholelithiasis. 3. No definite bowel wall thickening or obstruction. 4. Please refer to the same day chest CT for further evaluation of the lung bases. CT chest: Mild groundglass densities with mosaic attenuation of the right upper and left lower lobes. No overt pulmonary edema, suspicious nodule or mass. 3 mm solid nodule of the right upper lobe on image 34 series 4 is of low clinical suspicion however appears to be new from comparison. The central airways appear patent. IMPRESSION: 1. Limited exam secondary to respiratory motion artifact. 2. Cardiomegaly with pulmonary artery hypertension. 3. Trace right pleural effusion with subsegmental bibasilar atelectasis. 4. Mild bilateral air trapping. 5. Heterogeneous enhancement of the right kidney is suggestive of delayed nephrogram secondary to the obstructing calculus of the right uteropelvic junction as described on CT study of same day. These findings should be correlated with urinalysis to exclude infection. 02/08/2021: Status post cystoscopy with stent placement by Dr. Tubbs Leukocytosis above 14,000 Blood culture: Gram-negative bacilli- Ecoli urine culture positive for gram-negative E. coli Bio fire panel: Negative, Covid screen: Negative Patient was started on IV cefepime ID on board recommend cefazolin 2 g every 8, then when ready to discharge to transition to amoxicillin 500 mg every 8 hours until 02/22 Repeat blood culture pending Postsurgical hypothyroidism, TSH elevated Continue levothyroxine DVT prophylaxis. Heparin subcutaneous Full code Disposition Lives at home will order PT and OT evaluation Admission and Anticipated Discharge Date Admission Date: February 08, 2021 Subjective Patient was seen and examined for follow-up bacteremia and UTI Lying in bed with no acute distress, comfortable. She kept asking to go homed Denies abdominal pain, flank pain, fevers or chills, nausea vomiting, chest pain, palpitations, dizziness, headache Review of Systems Review of Systems: All systems reviewed & are unremarkable except as noted in Subjective Physical Exam Physical Exam: General- No acute distress Head- atraumatic Eyes- PERRL, EOMI, ENT- oropharynx clear Neck- supple, no JVD Lungs- clear to auscultation Heart- regular rhythm; no murmur Abdomen- normal bowel sounds, soft, nontender Extremities- no calf tenderness Neuro- alert, oriented, PERRL, EOMI; no facial palsy; no dysarthria Skin- warm & dry Results & Data Results & Data ([facility]) Vital Signs (Past 12 Hours) Vital Signs Temp Pulse Pulse Pulse Resp BP Pulse Ox 02/10/21 20:49 36.6 C 97 H 18 117/70 92 02/10/21 16:00 93 H 02/10/21 15:00 36.7 C 95 H 18 111/66 94 02/10/21 14:00 94 02/10/21 11:00 36.4 C L 82 18 115/59 L 93
[2021-02-10] MEDS ORDERED: SODIUM CHLORIDE 0.9% 500 ML IV ONE (23:42)
[2021-02-11] MEDS ORDERED: MAGNESIUM SULFATE / D5W 1 GM/100 ML BAG IV ONE (00:15)
[2021-02-11 00:25] LABS: Basophils # (auto) 0.02 K/uL (0-0.2); Basophils % (auto) 0.2 %; Eosinophils # (auto) 0.13 K/uL (0-0.5); Eosinophils % (auto) 1.3 %; Hematocrit (blood only) 35.2 % (37-47); Hemoglobin 11.2 g/dL (12.0-16.0); Immature Granulocytes # (auto) 0.02 K/uL (0.00-0.02); Immature Granulocytes % (auto) 0.2 %; Lymphocytes # (auto) 1.22 K/uL (1.2-3.4); Lymphocytes % (auto) 11.8 %; Mean Corpuscular Hemoglobin 28.1 pg (25-34); Mean Corpuscular Hgb Conc 31.8 g/dL (32-36); Mean Corpuscular Volume 88.2 fL (80-100); Mean Platelet Volume 9.6 fL (7.4-10.4); Monocytes # (auto) 1.07 K/uL (0.11-0.59); Monocytes % (auto) 10.4 %; Neutrophils # (auto) 7.85 K/uL (1.4-6.5); Neutrophils % (auto) 76.1 %; Platelet Count 165 K/uL (130-400); RDW Coefficient of Variation 15.5 % (11.5-14.5); RDW Standard Deviation 50.2 fL (36.4-46.3); Red Blood Count 3.99 M/uL (4.2-5.4); White Blood Count 10.31 K/uL (4.8-10.8)
[2021-02-11 00:38] LABS: Partial Thromboplastin Ratio 1.4
[2021-02-11 00:49] LABS: BUN Creatinine Ratio 29.7 (10-20); Calcium 9.2 mg/dl (8.5-10.1); Creatinine Clr Calc Pharmacy 66.8 ml/min; Est GFR (African American) 98.7 ml/min; Est GFR (Non-African American) 85.2 ml/min; Potassium 4.2 mmol/L (3.5-5.1)
[2021-02-11] MEDS: HEPARIN SOD 5,000 UNIT/0.5 ML VIAL SQ SCH ×3 (05:32→21:21)
[2021-02-11] MEDS: LEVOTHYROXINE SODIUM 75 MCG TABLET PO SCH (05:32)
[2021-02-11] MEDS: METOPROLOL SUCC 25MG EXT REL TAB PO SCH ×2 (08:20→21:20)
[2021-02-11] MEDS: ceFAZolin 1000MG 1,000 MG/7.5 ML SYR IV SCH ×2 (08:21→16:11)
[2021-02-11] MEDS: ASPIRIN 81 MG ECTAB PO SCH (08:21)
[2021-02-11] MEDS: DOXYCYCLINE HYCLATE 100 MG CAP PO SCH ×2 (08:21→21:20)
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
--- NOTE | 2021-02-11 21:54 | Hospitalist Progress Note ---
Date of Service February 11, 2021 Assessment & Plan (1) Severe sepsis: Plan: 75-year-old female with history of postsurgical hypothyroidism, hypertension presenting with weakness abdominal pain, dry cough. Severe sepsis, likely secondary to complicated UTI secondary to ureteral stone Possible atypical pneumonia CT abdomen and pelvis: 1. An 8 mm obstructing stone within the right ureteropelvic junction resulting in mild right hydronephrosis. 2. Cholelithiasis. 3. No definite bowel wall thickening or obstruction. 4. Please refer to the same day chest CT for further evaluation of the lung bases. CT chest: Mild groundglass densities with mosaic attenuation of the right upper and left lower lobes. No overt pulmonary edema, suspicious nodule or mass. 3 mm solid nodule of the right upper lobe on image 34 series 4 is of low clinical suspicion however appears to be new from comparison. The central airways appear patent. IMPRESSION: 1. Limited exam secondary to respiratory motion artifact. 2. Cardiomegaly with pulmonary artery hypertension. 3. Trace right pleural effusion with subsegmental bibasilar atelectasis. 4. Mild bilateral air trapping. 5. Heterogeneous enhancement of the right kidney is suggestive of delayed nephrogram secondary to the obstructing calculus of the right uteropelvic junction as described on CT study of same day. These findings should be correlated with urinalysis to exclude infection. 02/08/2021: Status post cystoscopy with stent placement by Dr. Tubbs Leukocytosis above 14,000 Blood culture: Gram-negative bacilli- Ecoli urine culture positive for gram-negative E. coli Bio fire panel: Negative, Covid screen: Negative Patient was started on IV cefepime ID on board recommend cefazolin 2 g every 8, then when ready to discharge to transition to amoxicillin 500 mg every 8 hours until 02/22 Repeat blood culture pending Postsurgical hypothyroidism, TSH elevated Continue levothyroxine Atrial tachycardia, paroxysmal: She has been having Brief episode Started on metoprolol 12.5 twice daily Cardiology consult Echo showed no wall motion abnormality with ejection fraction 55- 60% We will not start on anticoagulant Will keep K above 4 and Mg above 2 continue Monitor on telemetry DVT prophylaxis. Heparin subcutaneous Full code Disposition We will discharge once medically stable Admission and Anticipated Discharge Date Admission Date: February 08, 2021 Subjective Patient was seen and examined for follow-up bacteremia and UTI Lying in bed with no acute distress, comfortable. oracle apex developer showed tachyarrhythmia Denies abdominal pain, flank pain, fevers or chills, nausea vomiting, chest pain, palpitations, dizziness, headache Review of Systems Review of Systems: All systems reviewed & are unremarkable except as noted in Subjective Physical Exam Physical Exam: General- No acute distress Head- atraumatic Eyes- PERRL, EOMI, ENT- oropharynx clear Neck- supple, no JVD Lungs- clear to auscultation Heart- regular rhythm; no murmur Abdomen- normal bowel sounds, soft, nontender Extremities- no calf tenderness Neuro- alert, oriented, PERRL, EOMI; no facial palsy; no dysarthria Skin- warm & dry Results & Data Results & Data ([facility]) Vital Signs (Past 12 Hours) Vital Signs Temp Pulse Pulse Resp BP Pulse Ox 02/11/21 19:22 36.7 C 81 20 118/72 90 02/11/21 16:00 99 H 02/11/21 15:36 36.8 C 88 18 118/72 93 02/11/21 10:53 36.5 C 86 20 121/74 90
[2021-02-12] MEDS: ceFAZolin 1000MG 1,000 MG/7.5 ML SYR IV SCH ×2 (00:11→08:44)
[2021-02-12] MEDS: HEPARIN SOD 5,000 UNIT/0.5 ML VIAL SQ SCH ×2 (05:42→14:05)
[2021-02-12] MEDS: LEVOTHYROXINE SODIUM 75 MCG TABLET PO SCH (05:43)
[2021-02-12 06:19] LABS: Hematocrit (blood only) 37.9 % (37-47); Hemoglobin 11.8 g/dL (12.0-16.0); Mean Corpuscular Hgb Conc 31.1 g/dL (32-36); Mean Platelet Volume 9.6 fL (7.4-10.4); Platelet Count 180 K/uL (130-400); RDW Coefficient of Variation 15.3 % (11.5-14.5); RDW Standard Deviation 49.9 fL (36.4-46.3); Red Blood Count 4.21 M/uL (4.2-5.4); White Blood Count 9.13 K/uL (4.8-10.8)
[2021-02-12 07:08] LABS: BUN Creatinine Ratio 21.7 (10-20); Calcium 8.6 mg/dl (8.5-10.1); Est GFR (African American) 103.3 ml/min; Est GFR (Non-African American) 89.2 ml/min; Magnesium 1.8 mg/dl (1.8-2.4); Potassium 3.8 mmol/L (3.5-5.1)
[2021-02-12] MEDS: DOXYCYCLINE HYCLATE 100 MG CAP PO SCH (08:47)
[2021-02-12] MEDS: ASPIRIN 81 MG ECTAB PO SCH (08:48)
[2021-02-12] MEDS: METOPROLOL SUCC 25MG EXT REL TAB PO SCH (09:01)
--- NOTE | 2021-02-12 10:48 | Cardiology Progress Note ---
Date of Service February 12, 2021 Assessment & Plan (1) Atrial tachycardia, paroxysmal: (2) Sepsis: (3) Pneumonia: Plan: Patient with likely multifocal atrial tachycardia in setting of acute sepsis, UTI/Pneumonia and gram negative bacteremia. Tolerated low dose metoprolol 12.5 mg BID. Episodes of atrial tachycardia improving in frequency and duration, but remain present. Increase metoprolol to 25 mg in AM and 12.5 mg in PM. Echo revealed preserved LV systolic function with dilated RV, reduced RV function and pulmonary hypertension. This was similar to 2017 outpatient echo. She denies history of JOSSY, pulmonary disease. Currently appears euvolemic. May benefit from outpatient sleep referral. At this point, no definitive evidence of definitive atrial flutter or atrial fibrillation. Would not initiate anticoagulation at this time. Sepsis/bacteremia treatment per hospitalist. Case discussed/reviewed with Dr. Bolanos. Admission and Anticipated Discharge Date Admission Date: February 08, 2021 Supervising Physician Co-Signing Physician Notes Patient seen and examined the bedside. Denies palpitations, chest pain, or unusual shortness of breath. No orthopnea, PND, or edema. Admitted with urosepsis and gram-negative bacteremia. Requesting discharge. PE: VSS. Gen: NAD, AAOx3. Heart: Regular, normal S1-S2, no murmur appreciated. Neck: +JVD. Pulm: Clear bilateral, no rales, rhonchi, wheeze. Extremities: No edema. A/P: Agree with above PA-C history, physical exam, assessment and plan. Titrate metoprolol to 25 mg in the a.m., 12.5 mg in the evening. Continue other medications as previously ordered. Treatment of gram-negative sepsis as per primary service. Subjective Patient resting in bed comfortably. Denies acute complaints. Hoping to go home. Denies palpitations or tachypalpitations. No dizziness or lightheadedness. No CP or SOB. Review of Systems Review of Systems: All systems reviewed & are unremarkable except as noted in HPI & below Physical Exam Constitutional: WD/WN, vitals as above Neck: trachea midline, no thyromegaly Respiratory: normal respiratory effort, lungs clear to auscultation Cardiovascular: Rate/Rhythm: regular rate and regular rhythm Heart Sounds: no murmur Vessels: no JVD Extremities: no calf tenderness and no edema Gastrointestinal (Abdomen): normal bowel sounds, soft, nontender, no hepatosplenomegaly Skin: no rashes, warm and dry Neurologic: PERRL, EOMI, accommodation nl, no face palsy, no dysarthria Psychiatric: A+Ox3, euthymic affect Results & Data ([facility]) Vital Signs (Past 12 Hours) Vital Signs Temp Pulse Resp BP BP Pulse Ox 02/12/21 03:56 36.5 C 71 18 108/69 93 02/12/21 00:00 36.6 C 78 18 113/69 92 Laboratory Results 02/12/21 02/12/21 Range/Units 05:39 05:39 WBC 9.13 (4.8-10.8) K/uL RBC 4.21 (4.2-5.4) M/uL Hgb 11.8 L (12.0-16.0) g/dL Hct 37.9 (37-47) % MCV 90.0 (80-100) fL MCH 28.0 (25-34) pg MCHC 31.1 L (32-36) g/dL RDW Std Deviation 49.9 H (36.4-46.3) fL RDW Coeff of Ricardo 15.3 H (11.5-14.5) % Plt Count 180 (130-400) K/uL MPV 9.6 (7.4-10.4) fL Sodium 139 (136-145) mmol/L Potassium 3.8 (3.5-5.1) mmol/L Chloride 105 (98-107) mmol/L Carbon Dioxide 31 (21-32) mmol/L Anion Gap 3.0 (3-11) BUN 13 (7-18) mg/dl Creatinine 0.60 (0.6-1.2) mg/dl Est Cr Clr Drug Dosing 76.0 ml/min Est GFR ( Amer) 103.3 ml/min Est GFR (Non-Af Amer) 89.2 ml/min BUN/Creatinine Ratio 21.7 H (10-20) Glucose 98 (70-99) mg/dl Calcium 8.6 (8.5-10.1) mg/dl Magnesium 1.8 (1.8-2.4) mg/dl Diagnostic Findings Telemetry reviewed - NSR with short bursts of multifocal atrial tachycardia vs AVNRT, lasting 1 to 5 minutes at a time. Bouts are shorter and less frequent than the prior 24 hours. Echo results reviewed from this admission - LV systolic function is normal. EF 55-60% RV is severely dilated RV function is mildly reduced RA is moderately dilated mild TR Estimated systolic pulm pressures is 62 mmHg Medications Administered Current Inpatient Medications Acetaminophen (Acetaminophen 325 Mg Tab) 650 mg PO Q4H PRN PRN Reason: Pain or Fever Stop: 03/10/21 07:43 Aspirin (Aspirin 81 Mg Ectab) 81 mg PO QAM [facility] Stop: 03/10/21 08:59 Last Admin: 02/12/21 08:48 Dose: 81 mg Documented by: Doxycycline Hyclate (Doxycycline Hyclate 100 Mg Cap) 100 mg PO BID [facility]; Protocol Stop: 02/15/21 20:59 Last Admin: 02/12/21 08:47 Dose: 100 mg Documented by: Heparin Sodium (Porcine) (Heparin Sod 5,000 Unit/0.5 Ml Vial) 5,000 units SQ Q8 [facility] Stop: 03/10/21 07:59 Last Admin: 02/12/21 05:42 Dose: 5,000 units Documented by: Hydromorphone HCl (Hydromorphone Inj 0.5 Mg/0.5 Ml Syr) 0.25 mg IV Q6H PRN PRN Reason: Pain Stop: 02/22/21 07:43 Promethazine HCl 12.5 mg/ (Sodium Chloride) 50.5 mls @ 202 mls/hr IV Q6H PRN PRN Reason: Nausea And Vomiting Stop: 03/10/21 07:43 Cefazolin Sodium (Ancef 1000mg) 1,000 mg in 7.5 mls @ 2.5 mls/min IV Q8H [facility] Stop: 02/25/21 07:59 Last Admin: 02/12/21 08:44 Dose: 2.5 mls/min Documented by: Levothyroxine Sodium (Levothyroxine Sodium 75 Mcg Tablet) 75 mcg PO DAILYBB [facility] Stop: 03/10/21 08:59 Last Admin: 02/12/21 05:43 Dose: 75 mcg Documented by: Metoprolol Succinate (Metoprolol Succ 25mg Ext Rel Tab) 12.5 mg PO BID [facility] Stop: 03/13/21 08:59 Last Admin: 02/12/21 09:01 Dose: 12.5 mg Documented by: Tramadol HCl (Tramadol Hcl 50 Mg Tablet) 25 - 50 mg PO Q4H PRN PRN Reason: Pain Stop: 03/10/21 07:43 (1) Sepsis Sepsis acute organ dysfunction status: unspecified Sepsis type: sepsis due to unspecified organism Qualified Code(s): A41.9 - Sepsis, unspecified organism
[2021-02-12] MEDS ORDERED: METOPROLOL SUCC 25MG EXT REL TAB PO ONE (11:00)
--- NOTE | 2021-02-12 14:08 | Discharge Summary ---
Date of Service February 12, 2021 Discharge Data Allergies Allergy/AdvReac Type Severity Reaction Status Date / Time No Known Allergies Allergy Verified 02/07/21 23:19 Consultations 02/08/21 00:24 ED Decision to Admit Stat 02/08/21 07:44 Consult Urology Routine 02/09/21 09:41 Consult Infectious Diseases Routine 02/11/21 07:32 Consult Cardiology Routine Procedures Performed Operation Date: 02/08/21 04:00 Actual Procedures p Cystoscopy and Right Ureteral Stent Placement - Erasmo Tubbs MD Ordered Studies 02/07/21 22:46 CT abd pelvis IV con only Urgent 02/08/21 01:16 CT chest diagnostic wo con Urgent 02/08/21 04:48 FL retrograde includes kub Routine 02/08/21 14:30 US venous doppler LE LT Stat Hospital Course (1) Severe sepsis: 75-year-old female with history of postsurgical hypothyroidism, hypertension presenting with weakness abdominal pain, dry cough. Severe sepsis, likely secondary to complicated UTI secondary to ureteral stone Possible atypical pneumonia CT abdomen and pelvis: 1. An 8 mm obstructing stone within the right ureteropelvic junction resulting in mild right hydronephrosis. 2. Cholelithiasis. 3. No definite bowel wall thickening or obstruction. 4. Please refer to the same day chest CT for further evaluation of the lung bases. CT chest: Mild groundglass densities with mosaic attenuation of the right upper and left lower lobes. No overt pulmonary edema, suspicious nodule or mass. 3 mm solid nodule of the right upper lobe on image 34 series 4 is of low clinical suspicion however appears to be new from comparison. The central airways appear patent. IMPRESSION: 1. Limited exam secondary to respiratory motion artifact. 2. Cardiomegaly with pulmonary artery hypertension. 3. Trace right pleural effusion with subsegmental bibasilar atelectasis. 4. Mild bilateral air trapping. 5. Heterogeneous enhancement of the right kidney is suggestive of delayed nephrogram secondary to the obstructing calculus of the right uteropelvic junction as described on CT study of same day. These findings should be correlated with urinalysis to exclude infection. 02/08/2021: Status post cystoscopy with stent placement by Dr. Tubbs Leukocytosis above 14,000 Blood culture: Gram-negative bacilli- Ecoli urine culture positive for gram-negative E. coli Bio fire panel: Negative, Covid screen: Negative Patient was started on IV cefepime ID on board recommend cefazolin 2 g every 8, then when ready to discharge to transition to amoxicillin 500 mg every 8 hours until 02/22 Repeat blood culture pending Postsurgical hypothyroidism, TSH elevated Continue levothyroxine Atrial tachycardia, paroxysmal: She has been having Brief episode Started on metoprolol 12.5 twice daily Cardiology consult Echo showed no wall motion abnormality with ejection fraction 55- 60% We will not start on anticoagulant Will keep K above 4 and Mg above 2 continue Monitor on telemetry DVT prophylaxis. Heparin subcutaneous Full code Disposition We will discharge once medically stable Discharge Plan Discharge Items Reason For Visit: SEPSIS Condition on Discharge: Fair Follow-up/Referrals: Matt Banda DO [Primary Care Provider] - (Date & Time 02/15/2021 11:20 AM Provider Matt Banda DO Department Family [facility] ) Stand-Alone Forms: [facility] Medications and DC Order Prescriptions: No Action aspirin 81 mg Tablet,Delayed Release (Dr/Ec) 81 mg PO QAM RF: 0 levothyroxine 75 mcg tablet 75 mcg PO QAM RF: 0 cholecalciferol (vitamin D3) [Vitamin D3] 50 mcg (2,000 unit) Capsule 0 mcg PO QAM RF: 0 Admission Data Admit Date/Time: 02/08/21 05:11 Attending Provider: Murray Morales Admit Provider: Melvin Archer Primary Care Provider: Matt Banda Other Providers: Ina Brown ; Kathia Green I. ; Edgar Arteaga ; Yonis Herrera ; Erasmo Tubbs ; Nara Perez ; Adin Owusu ; Tanisha Flores ; Daniella Thrasher ; Georgia Joseph ; Jose Denise ; Moses Conklin ; Grisel Gomes ; Irene Joseph ; Wong Carranza ; Mj Garcia ; Margarita Dennis ; Oscar Zazueta I. ; Vishnu Ramirez II ; Sara Lazo ; Iron Brooke ; Melvin Archer ; Wyatt Alvarez ; Vadim Mills ; Moses Bolanos
--- NOTE | 2021-02-12 16:58 | Electrocardiogram Report ---
Test Reason : Blood Pressure : / mmHG Vent. Rate : 099 BPM Atrial Rate : 099 BPM P-R Int : 216 ms QRS Dur : 108 ms QT Int : 364 ms P-R-T Axes : 047 097 052 degrees QTc Int : 467 ms Sinus rhythm with 1st degree A-V block Rightward axis Low voltage QRS Incomplete right bundle branch block Borderline ECG When compared with ECG of 07-FEB-2021 22:50, Non-specific change in ST segment in Inferior leads T wave inversion no longer evident in Inferior leads Nonspecific T wave abnormality no longer evident in Lateral leads Confirmed by Charly Hi ([id number]) on 02/12/2021 4:57:30 PM Referred By: REFERRED SELF Confirmed By:Edy Hi
--- NOTE | 2021-02-12 16:59 | Electrocardiogram Report ---
Test Reason : Blood Pressure : / mmHG Vent. Rate : 129 BPM Atrial Rate : 097 BPM P-R Int : 000 ms QRS Dur : 098 ms QT Int : 368 ms P-R-T Axes : 000 101 266 degrees QTc Int : 539 ms Supraventricular tachycardia Rightward axis Low voltage QRS Incomplete right bundle branch block Abnormal ECG Confirmed by Charly Hi ([id number]) on 02/12/2021 4:58:34 PM Referred By: REFERRED SELF Confirmed By:Edy Hi
[2021-02-12] MEDS ORDERED: METOPROLOL SUCC 25MG EXT REL TAB PO SCH (21:00)
[2021-02-13] MEDS ORDERED: METOPROLOL SUCC 25MG EXT REL TAB PO SCH (09:00)
== END 2021-02-12 15:26 | disposition home or self-care (01) | DRG 853 ==
LOC: ED 22:21 → OR 02-08 05:10 → 1E 02-08 05:10 → SUATTDRO 02-08 05:11 → 2N 02-08 05:12

== ENCOUNTER 2021-03-14 06:02 | Inpatient (IN) ==
--- NOTE | 2021-03-14 06:33 | Emergency Department Note ---
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 Visit Data Chief Complaint: Syncope (Near Syncope) Stated Complaint: ABDOMINAL PAIN ED Provider: Prem Ly Discharge Problem: Acute respiratory failure with hypoxia and hypercarbia, Pulmonary hypertension, Elevated troponin I level Patient Disposition: Admitted As Inpatient Discharge Instructions Interventions: ED Discharge Assessment Last Done: 03/14/21 11:07
[2021-03-14] MEDS ORDERED: CEFEPIME 2,000 MG/20 ML VIAL IV STA (06:38)
[2021-03-14] MEDS ORDERED: dexAMETHasone**PF** 10 MG/ML VIAL IV ONE (06:40)
[2021-03-14] MEDS ORDERED: ALBUT/IPRATROP 3MG/0.5MG NEB 3 ML VIAL NEB STA (06:43)
[2021-03-14 06:44] LABS: Basophils # (auto) 0.05 K/uL (0-0.2); Basophils % (auto) 0.6 %; Eosinophils # (auto) 0.04 K/uL (0-0.5); Eosinophils % (auto) 0.5 %; Hematocrit (blood only) 41.1 % (37-47); Hemoglobin 11.7 g/dL (12.0-16.0); Immature Granulocytes # (auto) 0.09 K/uL (0.00-0.02); Immature Granulocytes % (auto) 1.1 %; Lymphocytes # (auto) 1.44 K/uL (1.2-3.4); Lymphocytes % (auto) 18.4 %; Mean Corpuscular Hemoglobin 28.2 pg (25-34); Mean Corpuscular Hgb Conc 28.5 g/dL (32-36); Mean Platelet Volume 9.5 fL (7.4-10.4); Monocytes # (auto) 0.55 K/uL (0.11-0.59); Neutrophils # (auto) 5.67 K/uL (1.4-6.5); Neutrophils % (auto) 72.4 %; Platelet Count 228 K/uL (130-400); RDW Coefficient of Variation 16.7 % (11.5-14.5); RDW Standard Deviation 60.6 fL (36.4-46.3); Red Blood Count 4.15 M/uL (4.2-5.4); White Blood Count 7.84 K/uL (4.8-10.8)
[2021-03-14] MEDS ORDERED: SODIUM CHLORIDE 0.9% 1000ML 1,000 ML IV SCH (06:45)
--- NOTE | 2021-03-14 06:57 | XRay Report ---
XR chest 1V portable CLINICAL HISTORY: weakness COMPARISON STUDY: Chest radiograph February 07, 2021. Chest CT February 08, 2021. FINDINGS: Lung volumes are markedly diminished. There is a possible trace left pleural effusion. Card iomegaly and enlargement of the central pulmonary arteries again noted. There is pulmonary vascular c ongestion. Multiple left rib fractures are incidentally noted. There is no lobar consolidation. IMPRESSION: 1. Cardiomegaly and dilatation of the central pulmonary arteries suggestive of pulmonary arterial hyp ertension. 2. Pulmonary vascular congestion. 3. Trace left pleural effusion. ACT 112: Negative or not required by law. Electronically signed by: Matty Davis M.D. 03/14/2021 6:56 AM
[2021-03-14 07:04] LABS: BUN Creatinine Ratio 17.4 (10-20); Calcium 8.7 mg/dl (8.5-10.1); Creatinine Clr Calc Pharmacy 83.3 ml/min; Est GFR (African American) 102.8 ml/min; Est GFR (Non-African American) 88.7 ml/min; Magnesium 2.2 mg/dl (1.8-2.4); Potassium 3.4 mmol/L (3.5-5.1)
[2021-03-14 07:13] LABS: INR 1.1 (0.9-1.1); Prothrombin Time 11.2 Seconds (9.0-12.0)
[2021-03-14 07:19] LABS: Albumin Globulin Ratio 0.7 (0.9-2); Bilirubin,Total 0.4 mg/dl (0.2-1); Globulin 4.1 gm/dl (2.5-4.0); Thyroid Stimulating Hormone 9.05 uIu/ml (0.300-4.500); Total Protein 7.1 gm/dl (6.4-8.2); Troponin I 1.62 ng/ml (0-0.045)
[2021-03-14 07:55] LABS: Appearance Urine Clear (Clear); Bacteria Urine Automated Negative (Negative); Bilirubin Urine Negative (Negative); Blood Urine 3+ (Negative); Cast Urine Automated 0 /lpf (0-5); Color Urine Dark Yellow; Glucose Urine UA Negative (Negative); Ketones Urine Trace (Negative); Leukocyte Esterase Urine 2+ (Negative); Nitrite Urine Positive (Negative); Protein Urine 2+ (Negative); RBC Urine Automated >30 /hpf (0-4); Specific Gravity Urine 1.019 (1.000-1.030); Urobilinogen Urine Negative (Negative); pH Urine 5.5 (4.5-7.5)
[2021-03-14] MEDS ORDERED: OPTIRAY 320 125ml IV ONE (07:55)
--- NOTE | 2021-03-14 08:08 | CT Scan Report ---
CT angio chest PE protocol CT DOSE: 1508.17 mGy.cm HISTORY: 75 years-old Female with PE, tachycardia, SOB. Acute shortness of breath with tachycardia TECHNIQUE: Multiple CTA images of the chest were obtained after the intravenous administration of 120 ml Optiray. Coronal and sagittal MIPS were obtained from the axial data set and were submitted for review. All measurements were obtained according to NASCET criteria. A dose lowering technique was u tilized adhering to the principles of ALARA. COMPARISON: CT abdomen and pelvis of same day, chest CT 02/08/2021 FINDINGS: CTA: Moderate cardiomegaly with pronounced dilation of the right heart chambers. There is no pericardial e ffusion. Mild coronary artery calcifications. Atherosclerosis of the thoracic aorta without aneurysm or dissection. Marked dilation of the pulmonary artery measures up to 5.3 cm transversely. Respirator y motion artifact limits evaluation of the segmental and subsegmental pulmonary arterial branches. No filling defects identified to suggest thromboembolic disease. CT CHEST: No adenopathy. Trace left and small right pleural effusions have increased in size from comparison. N o pneumothorax. Dependent right greater than left bibasilar consolidation. Right greater than left mo saic attenuation with intermixed groundglass opacities. Mild associated intralobular septal thickenin g. Bronchial wall thickening with mild bibasilar mucous plugging. The previously noted 3 mm solid nod ule of the right lung apex is not definitively seen. Central airways are patent. Calcific granulomata of the spleen. Unremarkable soft tissues. Degenerative changes of the shoulders and spine. No acute fracture identified. Serial fracture. IMPRESSION: 1. Cardiomegaly with pulmonary artery hypertension and mild pulmonary edema. No pulmonary emboli iden tified. 2. Trace left and small right pleural effusions have increased in size from comparison. 3. Bronchial wall thickening with mild bibasilar mucous plugging and dependent consolidation suggesti ve of atelectasis. 4. Right greater than left mosaic attenuation with intermixed groundglass opacities suggest atelectas is with air trapping. Superimposed pneumonia would be difficult to exclude. ACT 112: Negative or not required by law. The above report was generated using voice recognition software. It may contain grammatical, syntax o r spelling errors. Electronically signed by: Fausto Grubbs M.D. 03/14/2021 8:06 AM
--- NOTE | 2021-03-14 08:13 | CT Scan Report ---
CT OF THE ABDOMEN AND PELVIS WITH CONTRAST CLINICAL HISTORY: Right lower abdominal pain. Recent stone. COMPARISON STUDY: CT of the abdomen and pelvis February 08, 2021. TECHNIQUE: Following IV administration of 120 mL of Optiray, axial images of the abdomen and pelvis w ere obtained from the lung bases to the proximal femurs. Images were reviewed in the axial, sagittal, and coronal planes. IV contrast was administered without complication. Automated exposure control w as utilized for the study. A dose lowering technique was utilized adhering to the principles of VIVI Galindo. FINDINGS: Please note that the chest CT will be reported separately. Note is made of periportal edema and trace perihepatic ascites. There is gallbladder wall thickening. The gallbladder is not distende d. There are small gallstones within the gallbladder. Calcified granulomas within the spleen are note d. 1.8 cm left adrenal lesion is noted. There is mild nodularity of the right adrenal gland. Left adr enal lesion is new since CT of June 13, 2007. There is no pancreatic ductal dilatation. A right ur eteral stent is in place. Proximal aspect of the stent is within an upper pole calyx. Distal aspect i s within the bladder. A 7 mm right renal pelvis calculus is noted. This has slightly decreased in siz e since prior exam. There is mild right collecting system dilatation, improved since prior exam. Hete rogeneous enhancement of the right kidney is noted. There is no renal abscess. Images of the pelvis a re degraded by streak artifact from right hip arthroplasty. Old right sacral fracture. Old right pubi c ring fractures are noted. There is no evidence for a bowel obstruction. There is minimal presacral infiltration. There is minimal stranding within the right flank and right thigh. No fluid collection is present. The appendix is not well visualized on this exam. IMPRESSION: 1. Right ureteral stent in place. Mild right collecting system dilatation, decreased since prior CT o f February 08, 2021. 7 mm right renal pelvis calculus, slightly decreased in size since prior exam. 2. Mild heterogeneous enhancement of the right kidney. This may be related to recent obstruction holbrook reji could be correlated with urinalysis to exclude the possibility of a superimposed infectious proce ss. No renal abscess. No ureteral calculi. 3. No bowel obstruction. 4. Cholelithiasis with gallbladder wall thickening. Gallbladder wall thickening is nonspecific and co uld be related to right heart dysfunction. Acute cholecystitis is considered less likely however freddy elation with right upper quadrant pain is recommended. 5. Indeterminate 1.8 cm left adrenal lesion. ACT 112: Negative or not required by law. Electronically signed by: Matty Davis M.D. 03/14/2021 8:12 AM
[2021-03-14] MEDS ORDERED: METOPROLOL TARTRATE 1 MG/ML VIAL IV STA (08:33)
[2021-03-14] MEDS ORDERED: METOPROLOL TARTRATE 1 MG/ML VIAL IV PRN (08:33)
[2021-03-14 09:17] LABS: Base Excess VBG 5.8 mEq/L; HCO3 VBG 37 mmol/L; Oxygen Saturation VBG < 60.0 %; PCO2 VBG 94 mmHg (38-50); PO2 VBG 28 mmHg; pH VBG 7.21 (7.36-7.41)
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
[2021-03-14] MEDS: POTASSIUM CHLORIDE / WTR 10 MEQ/100 ML PLCT IV SCH ×2 (10:38→12:15)
--- NOTE | 2021-03-14 11:21 | Electrocardiogram Report ---
Test Reason : Blood Pressure : / mmHG Vent. Rate : 129 BPM Atrial Rate : 108 BPM P-R Int : 000 ms QRS Dur : 096 ms QT Int : 360 ms P-R-T Axes : 000 130 251 degrees QTc Int : 527 ms Probable Sinus tachycardia Right axis deviation Incomplete right bundle branch block Possible Right ventricular hypertrophy Nonspecific ST and T wave abnormality Abnormal ECG When compared with ECG of 11-FEB-2021 05:28, No significant change Confirmed by Ronaldo De La O ([id number]) on 03/14/2021 11:21:23 AM Referred By: REFERRED SELF Confirmed By:Ronaldo De La O
--- NOTE | 2021-03-14 11:22 | Electrocardiogram Report ---
Test Reason : Blood Pressure : / mmHG Vent. Rate : 128 BPM Atrial Rate : 128 BPM P-R Int : 124 ms QRS Dur : 098 ms QT Int : 366 ms P-R-T Axes : 068 132 254 degrees QTc Int : 534 ms Sinus tachycardia with occasional Premature ventricular complexes Right axis deviation Incomplete right bundle branch block Possible Right ventricular hypertrophy Abnormal ECG When compared with ECG of 14-MAR-2021 07:24, (unconfirmed) Premature ventricular complexes now present Confirmed by Ronaldo De La O ([id number]) on 03/14/2021 11:21:46 AM Referred By: REFERRED SELF Confirmed By:Ronaldo De La O
--- NOTE | 2021-03-14 11:24 | Electrocardiogram Report ---
Test Reason : Blood Pressure : / mmHG Vent. Rate : 099 BPM Atrial Rate : 099 BPM P-R Int : 230 ms QRS Dur : 098 ms QT Int : 356 ms P-R-T Axes : 060 118 077 degrees QTc Int : 456 ms Poor data quality, interpretation may be adversely affected Sinus rhythm with 1st degree A-V block with frequent Premature ventricular complexes Possible Left atrial enlargement Right axis deviation Incomplete right bundle branch block Right ventricular hypertrophy Nonspecific T wave abnormality Abnormal ECG When compared with ECG of 14-MAR-2021 07:24, (unconfirmed) WI interval has increased ST no longer depressed in Inferior leads T wave inversion no longer evident in Inferior leads Confirmed by Ronaldo De La O ([id number]) on 03/14/2021 11:24:26 AM Referred By: REFERRED SELF Confirmed By:Ronaldo De La O
[2021-03-14 12:38] LABS: Base Excess VBG 0.2 mEq/L; HCO3 VBG 31 mmol/L; PCO2 VBG 91 mmHg (38-50); PO2 VBG 29 mmHg; pH VBG 7.15 (7.36-7.41)
[2021-03-14 12:39] LABS: Oxygen Saturation VBG < 60.0 %
--- NOTE | 2021-03-14 12:45 | Communication Note ---
Date of Service: March 14, 2021 Discussed case with hospitalist and I personally the imaging. Patient came in with hypercapnic respiratory failure as evidenced by her VBG. PCO2 94. CT chest imaging was personally reviewed which demonstrated areas of air trapping and right lower lobe atelectasis. There is also concern of possible pulmonary hypertension based on echo from 02/11/2021 which is likely secondary to her underlying obstructive lung disease. For the acute issues, I would recommend the initiation of IV corticosteroids for acute hypercapnic respiratory failure (possible asthma and/or COPD). DuoNebs every 4 hours and to continue BiPAP therapy. Procalcitonin negative, but may be falsely low given the acuity of her symptoms. Recommend rechecking procalcitonin tomorrow. Recommend initiating antibiotic coverage for atypical infection with azithromycin or doxycycline. Continue cefepime. She will need outpatient pulmonary function testing and possibly a right heart catheterization to further evaluate the severity of her pulmonary hypertension and whether this represents precapillary pulmonary hypertension and/or post capillary pulmonary hypertension.
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
[2021-03-14] MEDS ORDERED: FUROSEMIDE 40 MG/4 ML VIAL IV ONE (15:00)
[2021-03-14] MEDS: ASPIRIN 81 MG ECTAB PO SCH (16:00)
[2021-03-14] MEDS: HEPARIN SOD 5,000 UNIT/0.5 ML VIAL SQ SCH ×2 (16:00→21:28)
[2021-03-14] MEDS: DOXYCYCLINE HYCLATE 100 MG in DEXTROSE 5% 100 ML IV SCH (18:24)
[2021-03-14] MEDS ORDERED: METOPROLOL SUCC 25MG EXT REL TAB PO SCH (21:00)
[2021-03-14] MEDS: TAMSULOSIN HCL 0.4 MG CAP PO SCH (21:29)
[2021-03-14] MEDS ORDERED: guaiFENesin SUGAR FREE 200 MG/10 ML UDC PO PRN (22:42)
[2021-03-14] MEDS: ALBUT/IPRATROP 3MG/0.5MG NEB 3 ML VIAL NEB SCH (23:29)
[2021-03-14] MEDS: CEFEPIME 1,000 MG in SYRINGE 0 ML IV SCH (23:53)
[2021-03-15] MEDS: ALBUT/IPRATROP 3MG/0.5MG NEB 3 ML VIAL NEB SCH ×5 (03:12→19:38)
[2021-03-15] MEDS: DOXYCYCLINE HYCLATE 100 MG in DEXTROSE 5% 100 ML IV SCH ×2 (05:51→16:46)
[2021-03-15] MEDS: HEPARIN SOD 5,000 UNIT/0.5 ML VIAL SQ SCH ×3 (05:51→20:21)
[2021-03-15] MEDS: LEVOTHYROXINE SODIUM 88 MCG TABLET PO SCH (05:52)
[2021-03-15] MEDS ORDERED: LEVOTHYROXINE SODIUM 75 MCG TABLET PO SCH (06:30)
[2021-03-15 07:40] LABS: Base Excess ABG 10.1 mEq/L (-9-1.8); HCO3 ABG 37 mmol/L (19-24); Oxygen Saturation ABG 94.4 % (90-95); PCO2 ABG 64 mmHg (35-46); PO2 ABG 72 mmHg (80-95); pH ABG 7.38 (7.35-7.45)
[2021-03-15 07:41] LABS: Allen Test Pos (Pos)
[2021-03-15 07:44] LABS: Hematocrit (blood only) 37.4 % (37-47); Hemoglobin 10.5 g/dL (12.0-16.0); Mean Corpuscular Hgb Conc 28.1 g/dL (32-36); Mean Corpuscular Volume 99.7 fL (80-100); Mean Platelet Volume 8.7 fL (7.4-10.4); Platelet Count 159 K/uL (130-400); RDW Coefficient of Variation 16.6 % (11.5-14.5); Red Blood Count 3.75 M/uL (4.2-5.4); White Blood Count 8.03 K/uL (4.8-10.8)
[2021-03-15 08:25] LABS: BUN Creatinine Ratio 21.8 (10-20); Calcium 8.5 mg/dl (8.5-10.1); Creatinine Clr Calc Pharmacy 108.4 ml/min; Est GFR (Non-African American) 96.6 ml/min; Potassium 3.8 mmol/L (3.5-5.1)
[2021-03-15] MEDS: CEFEPIME 1,000 MG in SYRINGE 0 ML IV SCH ×2 (08:51→20:20)
[2021-03-15] MEDS: ASPIRIN 81 MG ECTAB PO SCH (08:51)
[2021-03-15] MEDS: CHOLECALCIFEROL 1,000 UNITS 25 MCG TAB PO SCH (08:52)
[2021-03-15] MEDS: methylPREDNISolone 40 MG in SYRINGE 0 ML IV SCH (08:53)
[2021-03-15] MEDS ORDERED: predniSONE 20 MG TAB PO SCH (09:00)
[2021-03-15] MEDS ORDERED: METOPROLOL SUCC 25MG EXT REL TAB PO SCH (09:00)
--- NOTE | 2021-03-15 09:36 | Cardiology Progress Note ---
Date of Service March 15, 2021 Assessment & Plan (1) Acute respiratory failure with hypoxia and hypercarbia: (2) Pulmonary hypertension: (3) Elevated troponin I level: (4) Chronic right heart failure: Plan: 74-year-old female admitted with acute hypoxic and hypercapnic respiratory failure. Evidence of pulmonary vascular congestion on x-ray and CT with trace to small bilateral pleural effusions. Echocardiogram demonstrating right ventricular dilatation and dysfunction with indirect evidence of severe pulmonary hypertension. Findings unchanged when compared to echocardiogram dated 2017. Troponins elevated but flat likely reflecting demands of acute hypoxia and hypercapnia Patient clinically improved predominantly responding to treatment of underlying pulmonary issues. No arrhythmias on telemetry Episode last evening of acute respiratory distress nocturnally possible aspiration versus orthopnea. Furosemide 40 mg IV to be administered this morning Continue current medications as ordered We will hold tamsulosin to aid in blood pressure management with above treatment We will need to use oxygen and possibly CPAP/BiPAP at night Admission and Anticipated Discharge Date Admission Date: March 14, 2021 Subjective Patient was seen and examined, chart, medications, telemetry reviewed. Patient noted to have an episode of acute respiratory distress waking gasping with pleuritic pain and cough early this morning. Currently dyspneic with exertion but no acute complaints. Denies any chest pains dizziness or lightheadedness. Arterial blood gas has improved though patient has not manifested significant diuresis with recent IV diuretic dosings. No arrhythmias of significance on telemetry. Blood pressures borderline low Review of Systems Review of Systems: All systems reviewed & are unremarkable except as noted in Subjective Physical Exam Constitutional: + obese; no acute distress ENMT: external ear and nose normal, oropharynx normal Neck: trachea midline, no thyromegaly Respiratory: no respiratory distress and no retractions Auscultation: + diminished lung sounds (Bases bilateral); no wheezes Cardiovascular: Rate/Rhythm: regular rate and regular rhythm Heart Sounds: no murmur Vessels: no JVD Extremities: + edema (2+ chronic stasis edema, improved per patient) Gastrointestinal (Abdomen): Inspection/Auscultation: abdomen normal to inspection and normal bowel sounds; abdomen not distended Percussion/Palpation: abdomen soft; abdomen nontender, no guarding and abdomen not rigid Neurologic: moves all extremities Results & Data ([facility]) Vital Signs (Past 12 Hours) Vital Signs Temp Pulse Pulse Pulse Resp BP Pulse Ox 03/15/21 07:32 36.5 C 81 18 116/64 94 03/15/21 07:04 74 18 91 03/15/21 05:39 36.3 C L 77 16 94/61 L 90 03/15/21 03:12 78 16 96 03/15/21 00:00 36.6 C 62 90 16 105/58 L 96 03/14/21 23:29 88 22 94 Laboratory Results Laboratory Results - last 24 hr 03/14/21 03/14/21 03/14/21 06:45 11:39 12:19 WBC RBC Hgb Hct MCV MCH MCHC RDW Std Deviation RDW Coeff of Ricardo Plt Count MPV ABG pH ABG pCO2 ABG pO2 ABG HCO3 ABG O2 Saturation ABG Base Excess Rodrigo Test VBG pH 7.15 L VBG pCO2 91 H VBG pO2 29 VBG HCO3 31 VBG O2 Saturation < 60.0 VBG Base Excess 0.2 Barometric Pressure 736.3 Oxygen Given Sodium Potassium Chloride Carbon Dioxide Anion Gap BUN Creatinine Est Cr Clr Drug Dosing Est GFR ( Amer) Est GFR (Non-Af Amer) BUN/Creatinine Ratio Glucose POC Glucose Calcium Troponin I 1.780 H* Procalcitonin Nasal Screen MRSA (PCR) RSV (Molecular) Negative 03/14/21 03/14/21 03/15/21 17:11 Unknown 07:23 WBC RBC Hgb Hct MCV MCH MCHC RDW Std Deviation RDW Coeff of Ricardo Plt Count MPV ABG pH ABG pCO2 ABG pO2 ABG HCO3 ABG O2 Saturation ABG Base Excess Rodrigo Test VBG pH VBG pCO2 VBG pO2 VBG HCO3 VBG O2 Saturation VBG Base Excess Barometric Pressure Oxygen Given Sodium Potassium Chloride Carbon Dioxide Anion Gap BUN Creatinine Est Cr Clr Drug Dosing Est GFR ( Amer) Est GFR (Non-Af Amer) BUN/Creatinine Ratio Glucose POC Glucose Calcium Troponin I 1.280 H* Procalcitonin < 0.05 Nasal Screen MRSA (PCR) Negative RSV (Molecular) 03/15/21 03/15/21 03/15/21 07:23 07:23 07:23 WBC 8.03 RBC 3.75 L Hgb 10.5 L Hct 37.4 MCV 99.7 MCH 28.0 MCHC 28.1 L RDW Std Deviation 60.0 H RDW Coeff of Ricardo 16.6 H Plt Count 159 MPV 8.7 ABG pH 7.38 ABG pCO2 64 H ABG pO2 72 L ABG HCO3 37 H ABG O2 Saturation 94.4 ABG Base Excess 10.1 H Rodrigo Test Pos VBG pH VBG pCO2 VBG pO2 VBG HCO3 VBG O2 Saturation VBG Base Excess Barometric Pressure 737.9 Oxygen Given 2L Sodium 143 Potassium 3.8 Chloride 103 Carbon Dioxide 35 H Anion Gap 4.0 BUN 10 Creatinine 0.47 L Est Cr Clr Drug Dosing 108.4 Est GFR ( Amer) 112.0 Est GFR (Non-Af Amer) 96.6 BUN/Creatinine Ratio 21.8 H Glucose 105 H POC Glucose Calcium 8.5 Troponin I Procalcitonin Nasal Screen MRSA (PCR) RSV (Molecular) 03/15/21 07:23 WBC RBC Hgb Hct MCV MCH MCHC RDW Std Deviation RDW Coeff of Ricardo Plt Count MPV ABG pH ABG pCO2 ABG pO2 ABG HCO3 ABG O2 Saturation ABG Base Excess Rodrigo Test VBG pH VBG pCO2 VBG pO2 VBG HCO3 VBG O2 Saturation VBG Base Excess Barometric Pressure Oxygen Given Sodium Potassium Chloride Carbon Dioxide Anion Gap BUN Creatinine Est Cr Clr Drug Dosing Est GFR ( Amer) Est GFR (Non-Af Amer) BUN/Creatinine Ratio Glucose POC Glucose 94 Calcium Troponin I Procalcitonin Nasal Screen MRSA (PCR) RSV (Molecular)
[2021-03-15] MEDS ORDERED: FUROSEMIDE INJ 20 MG/2 ML VIAL IV ONE (09:48)
[2021-03-15] MEDS ORDERED: POTASSIUM CHLORIDE CRTAB 20 MEQ TABCR PO ONE (09:49)
--- NOTE | 2021-03-15 12:23 | Electrocardiogram Report ---
Test Reason : Blood Pressure : / mmHG Vent. Rate : 077 BPM Atrial Rate : 077 BPM P-R Int : 220 ms QRS Dur : 098 ms QT Int : 396 ms P-R-T Axes : 043 121 088 degrees QTc Int : 448 ms Sinus rhythm with 1st degree A-V block Possible Left atrial enlargement Right axis deviation Incomplete right bundle branch block Septal infarct , age undetermined Abnormal ECG When compared with ECG of 14-MAR-2021 09:31, Premature ventricular complexes are no longer Present Confirmed by Ronaldo De La O ([id number]) on 03/15/2021 12:23:01 PM Referred By: REFERRED SELF Confirmed By:Ronaldo De La O
[2021-03-15] MEDS: TAMSULOSIN HCL 0.4 MG CAP PO SCH (20:20)
[2021-03-15] MEDS: METOPROLOL SUCC 25MG EXT REL TAB PO SCH (20:21)
--- NOTE | 2021-03-15 23:19 | Hospitalist Progress Note ---
Date of Service March 15, 2021 Assessment & Plan (1) Acute respiratory failure with hypoxia and hypercarbia: (2) Elevated troponin I level: (3) Chronic right heart failure: (4) Pulmonary hypertension: Plan: Present on admission with worsening weakness, lethargy, fatigue and fall Acute respiratory failure with hypoxia and hypercarbia VBG on admission show respiratory acidosis with pH 7.15 and PCO2 91 CTA chest showed no evidence of PE. Cardiomegaly with pulmonary artery hypertension and mild pulmonary edema. Trace left and small right pleural effusions have increased Bronchial wall thickening with mild bibasilar mucous plugging and dependent consolidation suggestive of atelectasis. COVID-19 and RSV are negative Patient was placed on BiPAP Continue IV Solu-Medrol and cefepime on admission Case discussed with pulmonology recommended IV steroids, neb treatment and continue antibiotic ABG showed PCO2 64 and PO2 72 Procalcitonin normal Continue BiPAP at night and during the day as needed Clinically improved significantly. Elevated troponin Mostly due to hypoxia from respiratory nat failure Troponin on admission 1.6, then peak to 1.7 and now trending down to 1.2 Cardiology consult Echo showed no LV wall motion abnormality Chronic right heart failure Pulmonary hypertension Elevated BNP on admission above 9000 Imaging showed evidence of pulmonary vascular congestion on x-ray and CT with trace to small bilateral pleural effusions. Will need outpatient cardiac cath Lasix 20 mg IV given today Continue monitor closely Hypokalemia Potassium replaced Stable Abnormal UA Possible UTI UA positive for nitrite and leukocyte Urine culture did not send Received cefepime in the ER, we will continue for now Hypothyroidism TSH 9.05 Continue levothyroxine 88 mcg Check TSH in 4 to 6 weeks Recent right ureteral stent placement Patient scheduled for outpatient stent removal on , but adamant to get it removed now Urology will assess patient during admission to see if stable for any urology intervention DVT prophylaxis on heparin subcu CODE STATUS full code (She chose conditional code with no intubation or mechanical ventilation but daughter forced her to change it to full code) Admission and Anticipated Discharge Date Admission Date: March 14, 2021 Subjective Patient was seen and examined for follow-up of respiratory failure Sitting in chair with no acute distress with family at bedside Patient is very anxious and has been asking to go home today She said her breathing feels much better Daughter said that pt is looking a lot better when compare in the past few days Patient denies any chest pain, palpitation, dizziness, shortness of breath. Review of Systems Review of Systems: All systems reviewed & are unremarkable except as noted in Subjective Physical Exam Physical Exam: General- No acute distress Head- atraumatic Eyes- PERRL, EOMI, ENT- oropharynx clear Neck- supple, no JVD Lungs- + diminished breath sounds, +rhonchi Heart- regular rhythm; no murmur Abdomen- normal bowel sounds, soft, nontender Extremities- no calf tenderness, +trace edema. Neuro- alert, oriented, PERRL, EOMI; no facial palsy; no dysarthria Skin- warm & dry Results & Data Results & Data ([facility]) Vital Signs (Past 12 Hours) Vital Signs Temp Pulse Resp BP Pulse Ox 03/15/21 19:41 80 18 95 03/15/21 19:22 37.0 C 77 20 100/61 94 03/15/21 16:36 36.4 C L 76 18 91/50 L 93 03/15/21 15:58 78 18 96 03/15/21 12:11 95 03/15/21 12:07 36.7 C 86 18 94/57 L 93 03/15/21 11:24 77 18 94
[2021-03-16] MEDS: ALBUT/IPRATROP 3MG/0.5MG NEB 3 ML VIAL NEB SCH ×3 (00:10→07:15)
[2021-03-16] MEDS: DOXYCYCLINE HYCLATE 100 MG in DEXTROSE 5% 100 ML IV SCH ×2 (04:56→16:56)
[2021-03-16] MEDS: HEPARIN SOD 5,000 UNIT/0.5 ML VIAL SQ SCH ×3 (05:47→19:47)
[2021-03-16] MEDS: LEVOTHYROXINE SODIUM 88 MCG TABLET PO SCH (05:48)
[2021-03-16] MEDS ORDERED: ACETAMINOPHEN 325 MG TAB PO STA (06:39)
[2021-03-16] MEDS ORDERED: ACETAMINOPHEN 325 MG TAB PO SCH (06:39)
--- NOTE | 2021-03-16 06:40 | Communication Note ---
Date of Service: March 16, 2021 6:35 AM Patient woke up with choking episode as per RN. Complaining of pleuritic chest pain and shortness of breath. No new cough symptoms as per RN. AP Pleuritic chest pain rule out PE Choking episode EKG now Check troponin CT chest angio study Continue aspiration precautions Swallow eval if not yet done during confinement. Will relay to AM provider.
[2021-03-16 07:21] LABS: Base Excess ABG 11.6 mEq/L (-9-1.8); HCO3 ABG 38 mmol/L (19-24); Oxygen Saturation ABG 96.4 % (90-95); PCO2 ABG 58 mmHg (35-46); PO2 ABG 87 mmHg (80-95); pH ABG 7.43 (7.35-7.45)
[2021-03-16 07:22] LABS: Allen Test Pos (Pos)
[2021-03-16 07:29] LABS: Partial Thromboplastin Ratio 1.2; Partial Thromboplastin Time 31.6 Seconds (21.0-31.0)
[2021-03-16 07:41] LABS: Basophils # (auto) 0.01 K/uL (0-0.2); Basophils % (auto) 0.1 %; Eosinophils # (auto) 0.04 K/uL (0-0.5); Eosinophils % (auto) 0.5 %; Hematocrit (blood only) 33.5 % (37-47); Immature Granulocytes # (auto) 0.04 K/uL (0.00-0.02); Immature Granulocytes % (auto) 0.5 %; Lymphocytes # (auto) 1.33 K/uL (1.2-3.4); Lymphocytes % (auto) 16.6 %; Mean Corpuscular Hemoglobin 27.6 pg (25-34); Mean Corpuscular Hgb Conc 29.9 g/dL (32-36); Mean Corpuscular Volume 92.5 fL (80-100); Mean Platelet Volume 8.7 fL (7.4-10.4); Monocytes # (auto) 0.69 K/uL (0.11-0.59); Monocytes % (auto) 8.6 %; Neutrophils # (auto) 5.88 K/uL (1.4-6.5); Neutrophils % (auto) 73.7 %; Platelet Count 173 K/uL (130-400); RDW Coefficient of Variation 16.6 % (11.5-14.5); RDW Standard Deviation 55.7 fL (36.4-46.3); Red Blood Count 3.62 M/uL (4.2-5.4); White Blood Count 7.99 K/uL (4.8-10.8)
[2021-03-16 07:47] LABS: BUN Creatinine Ratio 28.9 (10-20); Calcium 8.7 mg/dl (8.5-10.1); Creatinine Clr Calc Pharmacy 99.4 ml/min; Est GFR (Non-African American) 94.1 ml/min; Magnesium 2.1 mg/dl (1.8-2.4); Potassium 3.8 mmol/L (3.5-5.1)
[2021-03-16 07:59] LABS: Troponin I 1.1 ng/ml (0-0.045)
[2021-03-16] MEDS ORDERED: OPTIRAY 320 125ml IV ONE (08:13)
--- NOTE | 2021-03-16 08:28 | CT Scan Report ---
CT angio chest PE protocol CLINICAL HISTORY: PE TECHNIQUE: Multidetector row helical CT of the chest was performed. Coronal and sagittal reformations were obtained. Automated dose lowering techniques and/or adjustment according to patient size were u tilized for this exam. Comparison: Comparison is made to CT chest 03/14/2021 FINDINGS: Lungs and pleura: Diffuse mosaic attenuation is seen compatible small airways disease. There is diffu se bronchial thickening. There is a small right and trace left pleural effusion with underlying atele ctasis. Heart and pericardium: The heart is markedly enlarged with biatrial enlargement. Reflux of contrast i nto the inferior vena cava is seen. Vessels: Ulnar trunk measures 52 mm in diameter. Mediastinum and sabrina: Unremarkable. Chest wall and lower neck: Unremarkable. Abdomen: Splenic calcifications are noted which may represent old granulomatous process. Lipid rich a denoma is seen in the left adrenal gland. Bones: Degenerative changes in the thoracic spine. IMPRESSION: 1. No evidence of pulmonary embolism. 2. Severe cardiomegaly and heart failure with elevation of the pulmonary trunk compatible with pulmo nary hypertension. 3. Small bilateral pleural effusions, right greater than left. 4. Small airways disease. ACT 112: Negative or not required by law. Electronically signed by: Shai Pineda M.D. 03/16/2021 8:26 AM
[2021-03-16] MEDS: ASPIRIN 81 MG ECTAB PO SCH (09:11)
[2021-03-16] MEDS: METOPROLOL SUCC 25MG EXT REL TAB PO SCH ×2 (09:12→19:47)
[2021-03-16] MEDS: methylPREDNISolone 40 MG in SYRINGE 0 ML IV SCH (09:12)
[2021-03-16] MEDS: CHOLECALCIFEROL 1,000 UNITS 25 MCG TAB PO SCH (09:14)
[2021-03-16] MEDS: CEFEPIME 1,000 MG in SYRINGE 0 ML IV SCH ×2 (09:18→19:46)
[2021-03-16] MEDS ORDERED: ALBUT/IPRATROP 3MG/0.5MG NEB 3 ML VIAL NEB PRN (09:59)
[2021-03-16] MEDS ORDERED: FUROSEMIDE 40 MG/4 ML VIAL IV ONE (10:32)
--- NOTE | 2021-03-16 13:44 | Electrocardiogram Report ---
Test Reason : Blood Pressure : / mmHG Vent. Rate : 073 BPM Atrial Rate : 073 BPM P-R Int : 228 ms QRS Dur : 104 ms QT Int : 384 ms P-R-T Axes : 049 111 050 degrees QTc Int : 423 ms Sinus rhythm with 1st degree A-V block Possible Left atrial enlargement Right axis deviation Low voltage QRS Incomplete right bundle branch block T wave abnormality, consider anterior ischemia Abnormal ECG When compared with ECG of 15-MAR-2021 10:15, No significant change was found Confirmed by Ronaldo De La O ([id number]) on 03/16/2021 1:44:18 PM Referred By: REFERRED SELF Confirmed By:Ronaldo De La O
--- NOTE | 2021-03-16 23:55 | Hospitalist Progress Note ---
Date of Service March 16, 2021 Assessment & Plan (1) Acute respiratory failure with hypoxia and hypercarbia: (2) Elevated troponin I level: (3) Chronic right heart failure: (4) Pulmonary hypertension: Plan: Present on admission with worsening weakness, lethargy, fatigue and fall Acute respiratory failure with hypoxia and hypercarbia VBG on admission show respiratory acidosis with pH 7.15 and PCO2 91 CTA chest showed no evidence of PE. Cardiomegaly with pulmonary artery hypertension and mild pulmonary edema. Trace left and small right pleural effusions have increased Bronchial wall thickening with mild bibasilar mucous plugging and dependent consolidation suggestive of atelectasis. COVID-19 and RSV are negative Patient was placed on BiPAP Continue IV Solu-Medrol and cefepime on admission Case discussed with pulmonology recommended IV steroids, neb treatment and continue antibiotic ABG showed PCO2 64 and PO2 72 Procalcitonin normal Continue BiPAP at night and during the day as needed (patient refused to sleep with the BiPAP machine last night) Clinically improved significantly. Elevated troponin Mostly due to hypoxia from respiratory nat failure Troponin on admission 1.6, then peak to 1.7 and now trending down to 1.2 Cardiology consult Echo showed no LV wall motion abnormality Chronic right heart failure Pulmonary hypertension Elevated BNP on admission above 9000 Imaging showed evidence of pulmonary vascular congestion on x-ray and CT with trace to small bilateral pleural effusions. Will need outpatient cardiac cath Additional Lasix 20 mg x1 IV given today Continue monitor closely Hypokalemia Potassium stable Abnormal UA Possible UTI UA positive for nitrite and leukocyte Urine culture did not send Received cefepime in the ER, we will continue for now Will consider to discontinue antibiotic if culture negative Hypothyroidism TSH 9.05 Continue levothyroxine 88 mcg Check TSH in 4 to 6 weeks Recent right ureteral stent placement Patient scheduled for outpatient stent removal on , but adamant to get it removed now Urology will assess patient during admission to see if stable for any urology intervention Spoke to urology that said Dr. Tubbs postponed the urology procedure that was on , they will contact patient to reschedule urology DVT prophylaxis on heparin subcu CODE STATUS full code (She chose conditional code with no intubation or mechanical ventilation but daughter forced her to change it to full code) Admission and Anticipated Discharge Date Admission Date: March 14, 2021 Subjective Patient was seen and examined for follow-up of respiratory failure Lying in bed with no acute distress with family at bedside She said her breathing feels much better Last night she refused to sleep with the BiPAP Spoke to urology that said Dr. Tubbs postponed the urology procedure that was on , they will contact patient to reschedule urology Patient denies any chest pain, palpitation, dizziness, shortness of breath. Review of Systems Review of Systems: All systems reviewed & are unremarkable except as noted in Subjective Physical Exam Physical Exam: General- No acute distress Head- atraumatic Eyes- PERRL, EOMI, ENT- oropharynx clear Neck- supple, no JVD Lungs- + diminished breath sounds, +rhonchi Heart- regular rhythm; no murmur Abdomen- normal bowel sounds, soft, nontender Extremities- no calf tenderness, +trace edema. Neuro- alert, oriented, PERRL, EOMI; no facial palsy; no dysarthria Skin- warm & dry Results & Data Results & Data ([facility]) Vital Signs (Past 12 Hours) Vital Signs Temp Pulse Resp BP Pulse Ox 03/16/21 23:00 36.4 C L 66 20 103/64 95 03/16/21 19:41 36.5 C 75 19 107/66 94 03/16/21 15:36 36.7 C 77 16 115/58 L 91 03/16/21 12:00 36.5 C 72 18 103/67 91
[2021-03-17] MEDS: HEPARIN SOD 5,000 UNIT/0.5 ML VIAL SQ SCH ×3 (05:27→20:24)
[2021-03-17] MEDS: DOXYCYCLINE HYCLATE 100 MG in DEXTROSE 5% 100 ML IV SCH ×2 (05:27→18:18)
[2021-03-17] MEDS: LEVOTHYROXINE SODIUM 88 MCG TABLET PO SCH (05:27)
[2021-03-17] MEDS: ASPIRIN 81 MG ECTAB PO SCH (08:59)
[2021-03-17] MEDS: CEFEPIME 1,000 MG in SYRINGE 0 ML IV SCH ×2 (09:00→20:23)
[2021-03-17] MEDS: CHOLECALCIFEROL 1,000 UNITS 25 MCG TAB PO SCH (09:00)
[2021-03-17] MEDS: METOPROLOL SUCC 25MG EXT REL TAB PO SCH ×2 (09:01→20:24)
[2021-03-17] MEDS: predniSONE 20 MG TAB PO SCH (09:01)
[2021-03-17 09:08] LABS: BUN Creatinine Ratio 31.3 (10-20); Calcium 9.2 mg/dl (8.5-10.1); Creatinine Clr Calc Pharmacy 96.7 ml/min; Est GFR (African American) 108.3 ml/min; Est GFR (Non-African American) 93.5 ml/min; Potassium 3.7 mmol/L (3.5-5.1)
--- NOTE | 2021-03-17 10:40 | Cardiology Progress Note ---
Date of Service March 17, 2021 Assessment & Plan (1) Acute respiratory failure with hypoxia and hypercarbia: (2) Pulmonary hypertension: (3) Elevated troponin I level: (4) Chronic right heart failure: Plan: 74-year-old female admitted with acute hypoxic and hypercapnic respiratory failure. Evidence of pulmonary vascular congestion on x-ray and CT with trace to small bilateral pleural effusions. Echocardiogram demonstrating right ventricular dilatation and dysfunction with indirect evidence of severe pulmonary hypertension. Findings unchanged when compared to echocardiogram dated 2016. Troponins elevated but flat likely reflecting demands of acute hypoxia and hypercapnia Patient clinically improved predominantly responding to treatment of underlying pulmonary issues. No arrhythmias on telemetry Patient continues to demonstrate improved functional capacity and respiratory status. Brisk diuresis yesterday greater than 3 L after IV furosemide and with improved acid-base issues/hypoxia We will give single dose of oral furosemide today and supplement potassium continue oxygen supplementation. Will need assessment for long-term oxygen needs/demand. Patient currently declining Pap or BiPAP use Admission and Anticipated Discharge Date Admission Date: March 14, 2021 Subjective Patient was seen and examined, chart, medications, telemetry reviewed. Overall feels improved this morning. Slept throughout the night without dyspnea or respiratory distress. Brisk diuresis yesterday after IV furosemide, improvement in acidosis and respiratory status/oxygenation Review of Systems Review of Systems: All systems reviewed & are unremarkable except as noted in Subjective Physical Exam Constitutional: + obese; no acute distress ENMT: external ear and nose normal, oropharynx normal Neck: trachea midline, no thyromegaly Respiratory: no respiratory distress and no retractions Auscultation: lungs clear to auscultation bilaterally (With better aeration at the bases) and + diminished lung sounds (Bases bilateral); no wheezes Cardiovascular: Rate/Rhythm: regular rate and regular rhythm Heart Sounds: no murmur Vessels: no JVD Extremities: + edema (Trace to 1+ chronic stasis edema, improved ) Gastrointestinal (Abdomen): Inspection/Auscultation: abdomen normal to inspection and normal bowel sounds; abdomen not distended Percussion/Palpation: abdomen soft; abdomen nontender, no guarding and abdomen not rigid Neurologic: moves all extremities Results & Data ([facility]) Vital Signs (Past 12 Hours) Vital Signs Temp Pulse Pulse Resp BP Pulse Ox 03/17/21 07:39 36.4 C L 69 65 14 125/85 94 03/17/21 06:56 36.4 C L 56 L 18 99/66 L 94 03/17/21 04:30 36.5 C 74 16 93/51 L 94 03/16/21 23:00 36.4 C L 66 20 103/64 95 Laboratory Results Laboratory Results - last 24 hr 03/17/21 08:09 Sodium 141 Potassium 3.7 Chloride 96 L Carbon Dioxide 40 H Anion Gap 4.0 BUN 16 Creatinine 0.52 L Est Cr Clr Drug Dosing 96.7 Est GFR ( Amer) 108.3 Est GFR (Non-Af Amer) 93.5 BUN/Creatinine Ratio 31.3 H Glucose 90 Calcium 9.2
[2021-03-17] MEDS ORDERED: POTASSIUM CHLORIDE CRTAB 20 MEQ TABCR PO ONE (11:15)
[2021-03-17] MEDS ORDERED: FUROSEMIDE 20 MG TAB PO ONE (11:15)
--- NOTE | 2021-03-17 16:29 | Hospitalist Progress Note ---
Date of Service March 17, 2021 Assessment & Plan (1) Acute respiratory failure with hypoxia and hypercarbia: Plan: Acute respiratory failure with hypoxia and hypercarbia VBG on admission show respiratory acidosis with pH 7.15 and PCO2 91 CTA chest showed no evidence of PE. Cardiomegaly with pulmonary artery hypertension and mild pulmonary edema. Trace left and small right pleural effusions have increased Bronchial wall thickening with mild bibasilar mucous plugging and dependent consolidation suggestive of atelectasis. COVID-19 and RSV are negative Patient was placed on BiPAP Continue IV Solu-Medrol and cefepime on admission Case discussed with pulmonology recommended IV steroids, neb treatment and continue antibiotic ABG showed PCO2 64 and PO2 72 Procalcitonin normal Continue BiPAP at night and during the day as needed (patient refused to sleep with the BiPAP machine last night) Clinically much improved Has been requiring 2 L of oxygen to maintain saturation at rest We will get a to a stable O2 saturation prior to discharge tomorrow (2) Elevated troponin I level: Plan: Elevated troponin Mostly due to hypoxia from respiratory failure Troponin on admission 1.6, then peak to 1.7 and now trending down to 1.2 Cardiology consult-appreciate input and recommendation Echo showed no LV wall motion abnormality Received a small dose of Lasix We will continue current management (3) Chronic right heart failure: Plan: Likely the cause for acute respiratory failure complicated by pulmonary hypertension Chronic right heart failure Pulmonary hypertension Elevated BNP on admission above 9000 Imaging showed evidence of pulmonary vascular congestion on x-ray and CT with trace to small bilateral pleural effusions. Will need outpatient cardiac cath Additional Lasix 20 mg x1 IV given today Continue monitor closely (4) Pulmonary hypertension: Plan: Present on admission with worsening weakness, lethargy, fatigue and fall Hypokalemia Potassium stable Abnormal UA Possible UTI UA positive for nitrite and leukocyte Urine culture did not send Received cefepime in the ER, we will continue for now Will consider to discontinue antibiotic if culture negative Urine culture is positive for E. coli, pansensitive on fourth of this month We will continue cefepime for now and change to oral Ceftin on discharge Hypothyroidism TSH 9.05 Continue levothyroxine 88 mcg Check TSH in 4 to 6 weeks Recent right ureteral stent placement Patient scheduled for outpatient stent removal on , but adamant to get it removed now Urology will assess patient during admission to see if stable for any urology intervention Spoke to urology that said Dr. Tubbs postponed the urology procedure that was on , they will contact patient to reschedule urology DVT prophylaxis on heparin subcu CODE STATUS full code (She chose conditional code with no intubation or mechanical ventilation but daughter forced her to change it to full code) Admission and Anticipated Discharge Date Admission Date: March 14, 2021 Subjective 03/17/2021 The patient was seen and examined in telemetry unit She has been feeling much better and wants to go home She denies any chest pain and/or palpitation, any abdominal pain, nausea and or vomiting She will have her stent removal as an outpatient Review of Systems Review of Systems: All systems reviewed and are unremarkable except as noted below Physical Exam Physical Exam: Sitting on a chair without any acute distress Constitutional: well developed, well nourished and + obese; not ill appearing Eyes: PERRL, conjunctivae normal, anicteric sclerae ENMT: external ear and nose normal, oropharynx normal Neck: trachea midline, no thyromegaly Respiratory: no respiratory distress and no cough Auscultation: + diminished lung sounds and + crackles (Minimal crackles at the bases); no wheezes Cardiovascular: Rate/Rhythm: regular rate and regular rhythm; not tachycardic Heart Sounds: normal S1 and normal S2; no murmur Extremities: + edema (Trace edema bilaterally) Gastrointestinal (Abdomen): Inspection/Auscultation: normal bowel sounds; abdomen not distended Percussion/Palpation: abdomen soft; abdomen nontender Musculoskeletal: No acute arthritis in any joint Neurologic: Alert, awake and oriented x3. No focal sensory or motor deficit appreciated Lymphatic: no cervical or axillary lymphadenopathy Results & Data Results & Data ([facility]) Vital Signs (Past 12 Hours) Vital Signs Temp Pulse Pulse Resp BP Pulse Ox 03/17/21 15:21 77 03/17/21 15:12 36.5 C 72 12 101/62 95 03/17/21 11:02 36.4 C L 71 12 106/69 93 03/17/21 07:39 36.4 C L 69 65 14 125/85 94 03/17/21 06:56 36.4 C L 56 L 18 99/66 L 94 03/17/21 04:30 36.5 C 74 16 93/51 L 94 Laboratory Results [facility] 03/17/21 08:09 Sodium 141 Potassium 3.7 Chloride 96 L Carbon Dioxide 40 H BUN 16 Creatinine 0.52 L Glucose 90 Calcium 9.2 Medications Administered Current Inpatient Medications Albuterol (Albut/Ipratrop 3mg/0.5mg Neb 3 Ml Vial) 3 ml NEB Q4R PRN PRN Reason: Shortness Of Breath Or Wheezing Stop: 04/13/21 22:59 Aspirin (Aspirin 81 Mg Ectab) 81 mg PO QAM [facility] Stop: 04/13/21 11:59 Last Admin: 03/17/21 08:59 Dose: 81 mg Documented by: Guaifenesin (Guaifenesin Sugar Free 200 Mg/10 Ml Udc) 200 mg PO Q6H PRN PRN Reason: Cough Stop: 04/13/21 22:41 Heparin Sodium (Porcine) (Heparin Sod 5,000 Unit/0.5 Ml Vial) 5,000 units SQ Q8 [facility] Stop: 04/13/21 13:59 Last Admin: 03/17/21 14:07 Dose: 5,000 units Documented by: Doxycycline Hyclate 100 mg/ (Dextrose) 110 mls @ 50 mls/hr IV Q12H [facility] Stop: 03/21/21 16:59 Last Infusion: 03/17/21 07:40 Dose: Infused Documented by: Cefepime HCl 1,000 mg/ Syringe 11.3 mls @ 5.5 mls/min IV Q12 [facility]; Protocol Stop: 03/21/21 22:59 Last Admin: 03/17/21 09:00 Dose: 5.5 mls/min Documented by: Levothyroxine Sodium (Levothyroxine Sodium 88 Mcg Tablet) 88 mcg PO DAILYBB [facility] Stop: 04/14/21 06:29 Last Admin: 03/17/21 05:27 Dose: 88 mcg Documented by: Metoprolol Succinate (Metoprolol Succ 25mg Ext Rel Tab) 25 mg PO BID [facility] Stop: 04/14/21 20:59 Last Admin: 03/17/21 09:01 Dose: 25 mg Documented by: Prednisone (Prednisone 20 Mg Tab) 40 mg PO DAILY [facility] Stop: 04/16/21 08:59 Last Admin: 03/17/21 09:01 Dose: 40 mg Documented by: Tamsulosin HCl (Tamsulosin Hcl 0.4 Mg Cap) 0.4 mg PO HS [facility] Stop: 04/13/21 20:59 Last Admin: 03/15/21 20:20 Dose: 0.4 mg Documented by: Vitamin D (Cholecalciferol 1,000 Units 25 Mcg Tab) 1,000 units PO QA [facility] Stop: 04/14/21 08:59 Last Admin: 03/17/21 09:00 Dose: 1,000 units Documented by:
[2021-03-18] MEDS: DOXYCYCLINE HYCLATE 100 MG in DEXTROSE 5% 100 ML IV SCH (05:50)
[2021-03-18] MEDS: LEVOTHYROXINE SODIUM 88 MCG TABLET PO SCH (05:51)
[2021-03-18] MEDS: HEPARIN SOD 5,000 UNIT/0.5 ML VIAL SQ SCH ×2 (05:51→12:58)
[2021-03-18 07:38] LABS: Eosinophils # (auto) 0.02 K/uL (0-0.5); Eosinophils % (auto) 0.3 %; Hematocrit (blood only) 39.4 % (37-47); Hemoglobin 11.5 g/dL (12.0-16.0); Immature Granulocytes # (auto) 0.07 K/uL (0.00-0.02); Immature Granulocytes % (auto) 0.9 %; Lymphocytes # (auto) 1.51 K/uL (1.2-3.4); Lymphocytes % (auto) 19.1 %; Mean Corpuscular Hemoglobin 27.9 pg (25-34); Mean Corpuscular Hgb Conc 29.2 g/dL (32-36); Mean Corpuscular Volume 95.6 fL (80-100); Mean Platelet Volume 9.6 fL (7.4-10.4); Monocytes # (auto) 0.79 K/uL (0.11-0.59); Neutrophils % (auto) 69.7 %; Platelet Count 173 K/uL (130-400); RDW Standard Deviation 59.4 fL (36.4-46.3); Red Blood Count 4.12 M/uL (4.2-5.4); White Blood Count 7.89 K/uL (4.8-10.8)
[2021-03-18] MEDS: METOPROLOL SUCC 25MG EXT REL TAB PO SCH (08:09)
[2021-03-18] MEDS: predniSONE 20 MG TAB PO SCH (08:10)
[2021-03-18] MEDS: ASPIRIN 81 MG ECTAB PO SCH (08:11)
[2021-03-18] MEDS: CHOLECALCIFEROL 1,000 UNITS 25 MCG TAB PO SCH (08:11)
[2021-03-18] MEDS: CEFEPIME 1,000 MG in SYRINGE 0 ML IV SCH (08:12)
[2021-03-18 08:18] LABS: BUN Creatinine Ratio 33.3 (10-20); Calcium 9.3 mg/dl (8.5-10.1); Creatinine Clr Calc Pharmacy 87.1 ml/min; Est GFR (African American) 105.1 ml/min; Est GFR (Non-African American) 90.7 ml/min; Magnesium 2.1 mg/dl (1.8-2.4); Potassium 4.2 mmol/L (3.5-5.1)
--- NOTE | 2021-03-18 10:27 | Hospitalist Progress Note ---
Date of Service March 18, 2021 Assessment & Plan (1) Acute respiratory failure with hypoxia and hypercarbia: Plan: Acute respiratory failure with hypoxia and hypercarbia VBG on admission show respiratory acidosis with pH 7.15 and PCO2 91 CTA chest showed no evidence of PE. Cardiomegaly with pulmonary artery hypertension and mild pulmonary edema. Trace left and small right pleural effusions have increased Bronchial wall thickening with mild bibasilar mucous plugging and dependent consolidation suggestive of atelectasis. COVID-19 and RSV are negative Patient was placed on BiPAP Continue IV Solu-Medrol and cefepime on admission Case discussed with pulmonology recommended IV steroids, neb treatment and continue antibiotic ABG showed PCO2 64 and PO2 72 Procalcitonin normal Continue BiPAP at night and during the day as needed (patient refused to sleep with the BiPAP machine last night) Clinically much improved Has been requiring 2 L of oxygen to maintain saturation at rest Denies any symptoms today Has had to do steps O2 saturation test and she will require 3 L with ambulation and nothing at rest She will be discharged home this afternoon (2) Elevated troponin I level: Plan: Elevated troponin Mostly due to hypoxia from respiratory failure Troponin on admission 1.6, then peak to 1.7 and now trending down to 1.2 Cardiology consult-appreciate input and recommendation Echo showed no LV wall motion abnormality Received a small dose of Lasix We will continue current management (3) Chronic right heart failure: Plan: Likely the cause for acute respiratory failure complicated by pulmonary hypertension Chronic right heart failure Pulmonary hypertension Elevated BNP on admission above 9000 Imaging showed evidence of pulmonary vascular congestion on x-ray and CT with trace to small bilateral pleural effusions. Will need outpatient cardiac cath Additional Lasix 20 mg x1 IV given today Continue monitor closely She may be benefited from a small dose of Lasix at home (4) Pulmonary hypertension: Plan: Present on admission with worsening weakness, lethargy, fatigue and fall Hypokalemia Potassium stable Abnormal UA UA positive for nitrite and leukocyte Urine culture did not send Received cefepime in the ER, we will continue for now Will consider to discontinue antibiotic if culture negative Urine culture is positive for E. coli, pansensitive on fourth of this month We will continue cefepime for now and change to oral Ceftin on discharge She has been on antibiotic for the last 7 days and will not need any more antibiotic on discharge Hypothyroidism TSH 9.05 Continue levothyroxine 88 mcg Check TSH in 4 to 6 weeks Recent right ureteral stent placement Patient scheduled for outpatient stent removal on , but adamant to get it removed now Urology will assess patient during admission to see if stable for any urology intervention Spoke to urology that said Dr. Tubbs postponed the urology procedure that was on , they will contact patient to reschedule urology DVT prophylaxis on heparin subcu CODE STATUS full code (She chose conditional code with no intubation or mechanical ventilation but daughter forced her to change it to full code) Admission and Anticipated Discharge Date Admission Date: March 14, 2021 Subjective 03/17/2021 The patient was seen and examined in telemetry unit She has been feeling much better and wants to go home She denies any chest pain and/or palpitation, any abdominal pain, nausea and or vomiting She will have her stent removal as an outpatient 03/18/2021 The patient was seen and examined in telemetry unit She has been feeling much better and denies any symptoms She wants to go home Review of Systems Review of Systems: All systems reviewed and are unremarkable except as noted below Respiratory: No shortness of breath at rest Cardiovascular: Additional Comments: No chest pain and/or palpitation Physical Exam Physical Exam: Sitting on a chair without any acute distress Constitutional: well developed, well nourished and + obese; not ill appearing Eyes: PERRL, conjunctivae normal, anicteric sclerae ENMT: external ear and nose normal, oropharynx normal Neck: trachea midline, no thyromegaly Respiratory: no respiratory distress and no cough Auscultation: + diminished lung sounds and + crackles (Minimal crackles at the bases); no wheezes Cardiovascular: Rate/Rhythm: regular rate and regular rhythm; not tachycardic Heart Sounds: normal S1 and normal S2; no murmur Extremities: + edema (Trace edema bilaterally) Gastrointestinal (Abdomen): Inspection/Auscultation: normal bowel sounds; abdomen not distended Percussion/Palpation: abdomen soft; abdomen nontender Musculoskeletal: No arthritis involving any joints Neurologic: Alert, awake and oriented x3. No focal sensory and motor deficit appreciated Lymphatic: no cervical or axillary lymphadenopathy Results & Data Results & Data ([facility]) Vital Signs (Past 12 Hours) Vital Signs Temp Pulse Pulse Pulse Pulse Pulse Pulse 03/18/21 09:15 100 H 81 84 88 03/18/21 07:48 64 03/18/21 03:12 36.8 C 73 03/17/21 23:27 36.5 C 56 L Pulse Resp Resp Resp Resp Resp Resp 03/18/21 09:15 73 22 20 20 18 18 03/18/21 07:48 03/18/21 03:12 17 03/17/21 23:27 19 BP Pulse Ox Pulse Ox Pulse Ox Pulse Ox Pulse Ox Pulse Ox 03/18/21 09:15 87 L 94 86 L 94 94 03/18/21 07:48 03/18/21 03:12 126/76 95 03/17/21 23:27 121/65 96 Laboratory Results Short CBC 03/18/21 Range/Units 06:40 WBC 7.89 (4.8-10.8) K/uL Hgb 11.5 L (12.0-16.0) g/dL Hct 39.4 (37-47) % Plt Count 173 (130-400) K/uL BMP 03/18/21 06:40 Sodium 141 Potassium 4.2 Chloride 99 Carbon Dioxide 38 H BUN 19 H Creatinine 0.57 L Glucose 88 Calcium 9.3 Medications Administered Current Inpatient Medications Albuterol (Albut/Ipratrop 3mg/0.5mg Neb 3 Ml Vial) 3 ml NEB Q4R PRN PRN Reason: Shortness Of Breath Or Wheezing Stop: 04/13/21 22:59 Aspirin (Aspirin 81 Mg Ectab) 81 mg PO QAM [facility] OF [facility] Stop: 04/13/21 11:59 Last Admin: 03/18/21 08:11 Dose: 81 mg Documented by: Guaifenesin (Guaifenesin Sugar Free 200 Mg/10 Ml Udc) 200 mg PO Q6H PRN PRN Reason: Cough Stop: 04/13/21 22:41 Heparin Sodium (Porcine) (Heparin Sod 5,000 Unit/0.5 Ml Vial) 5,000 units SQ Q8 [facility] Stop: 04/13/21 13:59 Last Admin: 03/18/21 05:51 Dose: 5,000 units Documented by: Doxycycline Hyclate 100 mg/ (Dextrose) 110 mls @ 50 mls/hr IV Q12H [facility] Stop: 03/21/21 16:59 Last Infusion: 03/18/21 08:41 Dose: Infused Documented by: Cefepime HCl 1,000 mg/ Syringe 11.3 mls @ 5.5 mls/min IV Q12 [facility] OF [facility]; Protocol Stop: 03/21/21 22:59 Last Admin: 03/18/21 08:12 Dose: 5.5 mls/min Documented by: Levothyroxine Sodium (Levothyroxine Sodium 88 Mcg Tablet) 88 mcg PO DAILYBB [facility] Stop: 04/14/21 06:29 Last Admin: 03/18/21 05:51 Dose: 88 mcg Documented by: Metoprolol Succinate (Metoprolol Succ 25mg Ext Rel Tab) 25 mg PO BID [facility] Stop: 04/14/21 20:59 Last Admin: 03/18/21 08:09 Dose: 25 mg Documented by: Prednisone (Prednisone 20 Mg Tab) 40 mg PO DAILY [facility] Stop: 04/16/21 08:59 Last Admin: 03/18/21 08:10 Dose: 40 mg Documented by: Tamsulosin HCl (Tamsulosin Hcl 0.4 Mg Cap) 0.4 mg PO HS [facility] Stop: 04/13/21 20:59 Last Admin: 03/15/21 20:20 Dose: 0.4 mg Documented by: Vitamin D (Cholecalciferol 1,000 Units 25 Mcg Tab) 1,000 units PO QAM [facility] Stop: 04/14/21 08:59 Last Admin: 03/18/21 08:11 Dose: 1,000 units Documented by:
--- NOTE | 2021-03-18 11:13 | Cardiology Progress Note ---
Date of Service March 18, 2021 Assessment & Plan (1) Acute respiratory failure with hypoxia and hypercarbia: (2) Pulmonary hypertension: (3) Elevated troponin I level: (4) Chronic right heart failure: Plan: 74-year-old female admitted with acute hypoxic and hypercapnic respiratory failure. Evidence of pulmonary vascular congestion on x-ray and CT with trace to small bilateral pleural effusions. Echocardiogram demonstrating right ventricular dilatation and dysfunction with indirect evidence of severe pulmonary hypertension. Findings unchanged when compared to echocardiogram dated 2016. Troponins elevated but flat likely reflecting demands of acute hypoxia and hypercapnia Patient clinically improved predominantly responding to treatment of underlying pulmonary issues. No arrhythmias on telemetry Patient continues to demonstrate improved functional capacity and respiratory status. Brisk diuresis greater than 3 L after IV furosemide and with improved acid-base issues/hypoxia Recommendations: Continue low-dose furosemide 20 mg 3 days/week Monday. CHF instructions on discharge, discussed need for daily weights and seeking medical care with clinical decline. Follow-up cardiology 1 month's time, PCP in 1 week with [facility] Admission and Anticipated Discharge Date Admission Date: March 14, 2021 Subjective Patient seen and examined, chart, medications, telemetry reviewed. Improved once again this morning. No cardiac complaints. Slept well no further dyspnea or chest discomfort. No dizziness or lightheadedness Review of Systems Review of Systems: All systems reviewed & are unremarkable except as noted in Subjective Physical Exam Constitutional: + obese; no acute distress ENMT: external ear and nose normal, oropharynx normal Neck: trachea midline, no thyromegaly Respiratory: no respiratory distress and no retractions Auscultation: lungs clear to auscultation bilaterally (With better aeration at the bases) and + diminished lung sounds (Bases bilateral); no wheezes Cardiovascular: Rate/Rhythm: regular rate and regular rhythm Heart Sounds: no murmur Vessels: no JVD Extremities: + edema (Trace to 1+ chronic stasis edema, improved ) Gastrointestinal (Abdomen): Inspection/Auscultation: abdomen normal to inspection and normal bowel sounds; abdomen not distended Percussion/Palpation: abdomen soft; abdomen nontender, no guarding and abdomen not rigid Neurologic: moves all extremities Results & Data ([facility]) Vital Signs (Past 12 Hours) Vital Signs Temp Pulse Pulse Pulse Pulse Pulse Pulse 03/18/21 09:15 100 H 81 84 88 03/18/21 07:48 64 03/18/21 03:12 36.8 C 73 03/17/21 23:27 36.5 C 56 L Pulse Resp Resp Resp Resp Resp Resp 03/18/21 09:15 73 22 20 20 18 18 03/18/21 07:48 03/18/21 03:12 17 03/17/21 23:27 19 BP Pulse Ox Pulse Ox Pulse Ox Pulse Ox Pulse Ox Pulse Ox 03/18/21 09:15 87 L 94 86 L 94 94 03/18/21 07:48 03/18/21 03:12 126/76 95 03/17/21 23:27 121/65 96 Laboratory Results Laboratory Results - last 24 hr 03/17/21 03/18/21 03/18/21 23:33 06:40 06:40 WBC 7.89 RBC 4.12 L Hgb 11.5 L Hct 39.4 MCV 95.6 MCH 27.9 MCHC 29.2 L RDW Std Deviation 59.4 H RDW Coeff of Ricardo 17.0 H Plt Count 173 MPV 9.6 Immature Gran % (Auto) 0.9 Neut % (Auto) 69.7 Lymph % (Auto) 19.1 Bea[place]gard % (Auto) 10.0 Eos % (Auto) 0.3 Baso % (Auto) 0.0 Neut # (Auto) 5.50 Lymph # (Auto) 1.51 [place]gard # (Auto) 0.79 H Eos # (Auto) 0.02 Baso # (Auto) 0.00 Immature Gran # (Auto) 0.07 H Sodium 141 Potassium 4.2 Chloride 99 Carbon Dioxide 38 H Anion Gap 4.0 BUN 19 H Creatinine 0.57 L Est Cr Clr Drug Dosing 87.1 Est GFR ( Amer) 105.1 Est GFR (Non-Af Amer) 90.7 BUN/Creatinine Ratio 33.3 H Glucose 88 POC Glucose 108 H Calcium 9.3 Magnesium 2.1
--- NOTE | 2021-03-19 08:18 | Discharge Summary ---
Date of Service March 19, 2021 Admission HPI Per Admitting Provider 75 years old female with past medical history of hypertension, paroxysmal atrial tachycardia, Pulmonary hypertension hypothyroidism presented to the ER due to worsening weakness, lethargy and fatigue. History obtained mostly from daughter XIMENA patient did not want to stay in the hospital by saying she felt fine and wants to go home. As per daughter patient has been feeling very weak and tired for the last few weeks. Daughter said any littlle activity or exertion patient gets tired. Daughter said this morning while patient coming from the bathroom, her leg gave up and she fell on the ground. Daughter said that pt did not hit her head hard. Daughter said she did not notice any cough or any recent symptoms of upper respiratory. Patient said that she feels fine. She kept saying that she wants to go home. She had a ureteral stent placed in the last admission that scheduled for to be removed and patient would like to get it removed now. She denies any chest pain, palpitation, dizziness, s hortness of breath. VBG on admission showed pH 7.15, PCO2 91, troponin 1.6 and BNP 9490 and TSH 9.05. CTA chest show no evidence of PE. Admission Exam Per Admitting Provider Physical Exam: General- No acute distress Head- atraumatic Eyes- PERRL, EOMI, ENT- oropharynx clear Neck- supple, no JVD Lungs- + diminished breath sounds, +rhonchi Heart- regular rhythm; no murmur Abdomen- normal bowel sounds, soft, nontender Extremities- no calf tenderness, +trace edema. Neuro- alert, oriented, PERRL, EOMI; no facial palsy; no dysarthria Skin- warm & dry Principal Diagnosis Acute respiratory failure with hypoxia and hypercarbia, acute on chronic right- sided heart failure, pulmonary hypertension Discharge Exam Sitting on a chair without any acute distress Constitutional well developed, well nourished and + obese; not ill appearing Eyes PERRL, conjunctivae normal, anicteric sclerae ENMT external ear and nose normal, oropharynx normal Neck trachea midline, no thyromegaly Respiratory no respiratory distress and no cough Auscultation: + diminished lung sounds and + crackles (Minimal crackles at the bases); no wheezes Cardiovascular Rate/Rhythm: regular rate and regular rhythm; not tachycardic Heart Sounds: normal S1 and normal S2; no murmur Extremities: + edema (Trace edema bilaterally) Gastrointestinal (Abdomen) Inspection/Auscultation: normal bowel sounds; abdomen not distended Percussion/Palpation: abdomen soft; abdomen nontender Lymphatic no cervical or axillary lymphadenopathy Discharge Data Allergies Allergy/AdvReac Type Severity Reaction Status Date / Time No Known Allergies Allergy Verified 03/14/21 07:50 Consultations 03/14/21 08:06 ED Decision to Admit Stat 03/14/21 11:06 Consult Cardiology Routine Procedures Performed Operation Date: 03/18/21 08:00 <No data on this case meets the specified criteria> Ordered Studies 03/14/21 07:12 CT abd pelvis IV con only Stat CT angio chest PE protocol Stat 03/16/21 06:37 CT angio chest PE protocol Urgent Hospital Course (1) Acute respiratory failure with hypoxia and hypercarbia: Acute respiratory failure with hypoxia and hypercarbia VBG on admission show respiratory acidosis with pH 7.15 and PCO2 91 CTA chest showed no evidence of PE. Cardiomegaly with pulmonary artery hypertension and mild pulmonary edema. Trace left and small right pleural effusions have increased Bronchial wall thickening with mild bibasilar mucous plugging and dependent consolidation suggestive of atelectasis. COVID-19 and RSV are negative Patient was placed on BiPAP Continue IV Solu-Medrol and cefepime on admission Case discussed with pulmonology recommended IV steroids, neb treatment and continue antibiotic ABG showed PCO2 64 and PO2 72 Procalcitonin normal Continue BiPAP at night and during the day as needed (patient refused to sleep with the BiPAP machine last night) Clinically much improved Has been requiring 2 L of oxygen to maintain saturation at rest Denies any symptoms today Has had to do steps O2 saturation test and she will require 3 L with ambulation and nothing at rest She will be discharged home this afternoon (2) Elevated troponin I level: Elevated troponin Mostly due to hypoxia from respiratory failure Troponin on admission 1.6, then peak to 1.7 and now trending down to 1.2 Cardiology consult-appreciate input and recommendation Echo showed no LV wall motion abnormality Received a small dose of Lasix We will continue current management (3) Chronic right heart failure: Likely the cause for acute respiratory failure complicated by pulmonary hypertension Chronic right heart failure Pulmonary hypertension Elevated BNP on admission above 9000 Imaging showed evidence of pulmonary vascular congestion on x-ray and CT with trace to small bilateral pleural effusions. Will need outpatient cardiac cath Additional Lasix 20 mg x1 IV given today Continue monitor closely She may be benefited from a small dose of Lasix at home (4) Pulmonary hypertension: Present on admission with worsening weakness, lethargy, fatigue and fall Hypokalemia Potassium stable Abnormal UA UA positive for nitrite and leukocyte Urine culture did not send Received cefepime in the ER, we will continue for now Will consider to discontinue antibiotic if culture negative Urine culture is positive for E. coli, pansensitive on fourth of this month We will continue cefepime for now and change to oral Ceftin on discharge She has been on antibiotic for the last 7 days and will not need any more antibiotic on discharge Hypothyroidism TSH 9.05 Continue levothyroxine 88 mcg Check TSH in 4 to 6 weeks Recent right ureteral stent placement Patient scheduled for outpatient stent removal on , but adamant to get it removed now Urology will assess patient during admission to see if stable for any urology intervention Spoke to urology that said Dr. Tubbs postponed the urology procedure that was on , they will contact patient to reschedule urology DVT prophylaxis on heparin subcu CODE STATUS full code (She chose conditional code with no intubation or mechanical ventilation but daughter forced her to change it to full code) Total Time Total Time Spent Total Time Spent (In Minutes): 40 minutes Discharge Plan Discharge Items Patient Disposition: Home - Self-Care Reason For Visit: RESPIRATORY FAILURE Discharge Diagnosis: Acute respiratory failure with hypoxia and hypercarbia, acute on chronic right- sided heart failure, pulmonary hypertension Condition on Discharge: Good Activity: Resume your previous activity Non-emergency contact: Primary Care Provider Call non-emergency contact if: you have any medication questions and your symptoms worsen Follow-up/Referrals: Matt Banda DO [Primary Care Provider] - 03/22/21 12:00 pm Diet: Heart Healthy Fluids: 1500ml (6 cups) Addtl Attending Provider Instructions: Please take extra precautions to avoid fall Continue your oxygen as advised Please keep appointments with your primary care provider Please take medications as advised Please have your kidney function checked at PCPs visit Pending Studies at Discharge: No Stand-Alone Forms: My [employer], Smoking Cessation Medications and DC Order Prescriptions: New furosemide 20 mg Tablet 20 mg PO MoWeFr@0900 Qty: 30 RF: 0 metoprolol succinate 25 mg Tablet Extended Release 24 Hr 25 mg PO BID 30 Days Qty: 60 RF: 0 prednisone 10 mg tablet 10 mg PO UD Qty: 20 RF: 0 Continued aspirin [Aspirin Low Dose] 81 mg Tablet,Delayed Release (Dr/Ec) 81 mg PO QAM RF: 0 levothyroxine 75 mcg tablet 75 mcg PO DAILYBB RF: 0 cholecalciferol (vitamin D3) [Vitamin D3] 50 mcg (2,000 unit) Capsule 2,000 unit PO QAM RF: 0 tamsulosin [Flomax] 0.4 mg capsule 0.4 mg PO HS Qty: 30 RF: 0 Discontinued metoprolol succinate 25 mg tablet extended release 24 hr 25 mg PO DAILY RF: 0 metoprolol succinate 25 mg tablet extended release 24 hr 12.5 mg PO PM RF: 0 Discharge Orders: Discharge Order (Routine); Ordered 03/18/21 Ordered By: Ina Brown Admission Data Admit Date/Time: 03/14/21 09:25 Attending Provider: Ina Brown Admit Provider: Murray Morales Primary Care Provider: Matt Banda Other Providers: Murray Morales ; Moses Bolanos Other Interventions: Discharge Summary Assessment (RN) Last Done: 03/18/21 13:48
[2021-03-19] MEDS ORDERED: FUROSEMIDE 20 MG TAB PO SCH (09:00)
== END 2021-03-18 14:36 | disposition home or self-care (01) | DRG 189 ==
LOC: ED 06:02 → SUATTDRO 09:25 → EDINP 09:25 → 2S 18:55

== ENCOUNTER 2022-03-19 09:47 | Inpatient (IN) ==
[2022-03-19] MEDS ORDERED: ALBUTEROL 0.083% NEBU SOLN 3 ML VIAL NEB STA (10:20)
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
[2022-03-19 10:54] LABS: Hematocrit (blood only) 42.8 % (34.1-44.9); Hemoglobin 13.6 g/dl (12.0-16.0); Mean Corpuscular Hemoglobin 28.8 pg (25.0-34.0); Mean Corpuscular Hgb Conc 31.8 g/dL (32.0-36.0); Mean Corpuscular Volume 90.7 fL (80.0-100.0); Mean Platelet Volume 8.9 fL (9.4-12.3); Platelet Count 147 K/uL (130-400); RDW Coefficient of Variation 13.2 % (11.5-14.5); RDW Standard Deviation 43.8 fL (36.4-46.3); Red Blood Count 4.72 M/uL (3.93-5.22); White Blood Count 7.55 K/ul (4.8-10.8)
[2022-03-19 10:58] LABS: Base Excess VBG 9.2 mEq/L; HCO3 VBG 37 mmol/L; Oxygen Saturation VBG 78.8 %; PCO2 VBG 62 mmHg (38-50); PO2 VBG 46 mmHg; pH VBG 7.38 (7.36-7.41)
[2022-03-19 11:15] LABS: Alanine Aminotransferase 6 U/L (7-52); Albumin Globulin Ratio 1.2 (0.9-2); Albumin Level 3.8 gm/dl (3.4-5.0); Alkaline Phosphatase 57 U/L (34-104); Anion Gap 6 (3-11); Aspartate Aminotransferase 11 U/L (13-39); Bilirubin,Total 0.6 mg/dl (0.2-1.0); Blood Urea Nitrogen 12 mg/dl (6-23); Calcium 9.2 mg/dl (8.5-10.1); Carbon Dioxide 33 mmol/L (21-32); Chloride 102 mmol/L (98-107); Est GFR (African American) 102.6 ml/min; Est GFR (Non-African American) 88.5 ml/min; Globulin 3.1 gm/dl (2.5-4.0); Glucose 99 mg/dl (70-99(Fasting)); Lipase 3 U/L (11-82); Potassium 3.8 mmol/L (3.5-5.1); Sodium 141 mmol/L (136-145); Total Protein 6.9 gm/dl (6.0-8.3)
[2022-03-19 11:17] LABS: Basophils # (auto) 0.03 K/uL (0-0.2); Basophils % (auto) 0.4 %; Eosinophils % (auto) 1.3 %; Immature Granulocytes # (auto) 0.03 K/uL (0.00-0.02); Immature Granulocytes % (auto) 0.4 %; Lymphocytes # (auto) 2.13 K/uL (1.2-3.4); Lymphocytes % (auto) 28.2 %; Monocytes # (auto) 0.64 K/uL (0.24-0.82); Monocytes % (auto) 8.5 %; Neutrophils # (auto) 4.62 K/uL (1.4-6.5); Neutrophils % (auto) 61.2 %
--- NOTE | 2022-03-19 12:04 | XRay Report ---
XR chest 1V portable HISTORY: Atypical Chest Pain COMPARISON: Chest CTA 03/16/2021. FINDINGS: No pneumothorax. The heart remains enlarged. There is mild central pulmonary vascular conge stion without overt edema. This has improved in the interval. Small patchy bibasilar densities and tr kirsten bilateral pleural effusions persist. IMPRESSION: 1. Interval improvement in the pulmonary vascular congestion. 2. Trace bilateral pleural effusions and patchy bibasilar densities persist. ACT 112: Negative or not required by law. Electronically signed by: Lee Hurley M.D. 03/19/2022 12:02 PM
[2022-03-19] MEDS ORDERED: AZITHROMYCIN 500 MG in DEXTROSE 5% 250 ML IV STA (12:59)
[2022-03-19] MEDS ORDERED: cefTRIAXone SODIUM 2,000 MG/70 ML BAG IV STA (12:59)
[2022-03-19 13:15] LABS: Influenza A virus by PCR Negative (Neg); Influenza B virus by PCR Negative (Neg); SARS CoV2 RNA(COVID-19)Cepheid NEGATIVE (Negative)
[2022-03-19 13:58] LABS: RSV by PCR Positive (Neg)
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
[2022-03-19] MEDS ORDERED: SODIUM CHLORIDE 0.9% 500 ML IV SCH (16:06)
[2022-03-19] MEDS ORDERED: METOPROLOL SUCC 25MG EXT REL TAB PO ONE (16:06)
[2022-03-19] MEDS ORDERED: PNEUMOCOCCAL POLYSACCHARIDES 25 MCG/0.5 ML VIAL/SYR IM ONE (16:23)
[2022-03-19] MEDS ORDERED: INFLUENZA VACCINE HIGH DOSE PF 65+ 0.7 ML SYR IM ONE (16:23)
[2022-03-19] MEDS: ALBUT/IPRATROP 3MG/0.5MG NEB 3 ML VIAL NEB SCH ×3 (16:43→22:24)
[2022-03-19] MEDS ORDERED: Patient's WEIGHT Needed SCH (17:00)
[2022-03-19] MEDS: ENOXAPARIN INJ 30 MG/0.3 ML SYR SQ SCH (18:33)
[2022-03-19] MEDS: METOPROLOL SUCC 25MG EXT REL TAB PO SCH (22:03)
[2022-03-20] MEDS: ALBUT/IPRATROP 3MG/0.5MG NEB 3 ML VIAL NEB SCH ×5 (03:01→18:58)
[2022-03-20] MEDS: LEVOTHYROXINE SODIUM 100 MCG TABLET PO SCH (05:37)
[2022-03-20 06:53] LABS: Hematocrit (blood only) 39.1 % (34.1-44.9); Hemoglobin 12.5 g/dl (12.0-16.0); Mean Corpuscular Hemoglobin 28.7 pg (25.0-34.0); Mean Corpuscular Volume 89.9 fL (80.0-100.0); Mean Platelet Volume 9.1 fL (9.4-12.3); Platelet Count 147 K/uL (130-400); RDW Coefficient of Variation 13.2 % (11.5-14.5); RDW Standard Deviation 43.8 fL (36.4-46.3); Red Blood Count 4.35 M/uL (3.93-5.22); White Blood Count 8.37 K/ul (4.8-10.8)
[2022-03-20 07:19] LABS: Basophils # (auto) 0.02 K/uL (0-0.2); Basophils % (auto) 0.2 %; Immature Granulocytes # (auto) 0.03 K/uL (0.00-0.02); Immature Granulocytes % (auto) 0.4 %; Lymphocytes # (auto) 1.22 K/uL (1.2-3.4); Lymphocytes % (auto) 14.6 %; Monocytes # (auto) 0.67 K/uL (0.24-0.82); Neutrophils # (auto) 6.43 K/uL (1.4-6.5); Neutrophils % (auto) 76.8 %
[2022-03-20 07:20] LABS: BUN Creatinine Ratio 26.9 (10-20); Creatinine Clr Calc Pharmacy 87.8 ml/min; Est GFR (African American) 107.6 ml/min; Est GFR (Non-African American) 92.8 ml/min; Potassium 3.6 mmol/L (3.5-5.1)
--- NOTE | 2022-03-20 07:35 | Hospitalist Progress Note ---
Date of Service March 20, 2022 Assessment & Plan (1) Acute respiratory failure with hypoxia and hypercarbia: (2) RSV infection: (3) Tachycardia: (4) Chronic right heart failure: (5) Pulmonary hypertension: (6) HTN (hypertension): Plan Acute on Chronic respiratory failure: -at home pt use prn 3L oxygen supplement -Currently not on any inhalers -Procal neg and RSV is positive ---- neg flu and COVID -pt received ceftriaxone, azithro and solumedrol in the ER ---stopped ceftriaxone ---due to diffuse wheezing with possible COPD/Asthma - continue prednisone PO daily, duoned q4hrs and azithro -wean off of oxygen as pt tolerates - PT/OT Tachycardia with hx of paroxysmal atrial tachycardia: -received 500 cc NS bolus on admission -cont. home metoprolol XL dose (25mg BID) -monitor on to tele - HR in 90s R heart failure with pulm HTN: -monitor on tele - monitor fluid status -received 500 cc of NS on admision -will give small dose lasix today -continue aspirin, metoprolol and Lasix Hypothyroidism: -continue levothyroxine Diet: Cardiac DVT PPx: Lovenox Code Status: FULL CODE Emergency Contact: Eileen-daughter [phone] Admission and Anticipated Discharge Date Admission Date: March 19, 2022 Subjective Pt seen in follow up of resp. failure, + RSV Currently sitting up in bed, in no acute distress, on supplemental oxygen Continues to have cough No chest pain, currently no increased shortness of breath Denies any abdominal pain, nausea vomiting Review of Systems Review of Systems: All systems reviewed & are unremarkable except as noted in Subjective Physical Exam Physical Exam: General: elderly F sitting up in bed, NC in place,NAD, well developed, well nourished, average body habitus HEENT: Normocephalic and atraumatic, Normal Conjunctiva, EOMI, Sclera is non- icteric Lungs:good air entry but coarse breath sounds Heart: rrr,Normal S1, S2, no murmur Abdominal:.ND, Soft, NT MSK:trace b/l LE pitting edema Skin: warm, dry Psych:.AAOx3, normal affect Results & Data Results & Data ([facility]) Vital Signs (Past 12 Hours) Vital Signs Temp Pulse Pulse Pulse Resp BP Pulse Ox 03/20/22 07:06 90 20 97 03/20/22 03:00 36.3 C L 99 H 20 96/61 L 92 03/20/22 03:01 100 H 18 95 03/20/22 01:14 86 03/19/22 22:45 102 H 03/19/22 23:00 36.4 C L 101 H 20 96/57 L 95 03/19/22 22:25 97 H 18 95 O2 Del Method O2 Flow Rate 03/20/22 07:06 Nasal Cannula 3 03/20/22 03:00 Nasal Cannula 2 03/20/22 03:01 Nasal Cannula 3 03/20/22 01:14 03/19/22 22:45 03/19/22 23:00 Nasal Cannula 2 03/19/22 22:25 Nasal Cannula 3 Laboratory Results 03/20/22 03/20/22 03/19/22 Range/Units 06:36 06:36 12:11 WBC 8.37 (4.8-10.8) K/ul RBC 4.35 (3.93-5.22) M/uL Hgb 12.5 (12.0-16.0) g/dl Hct 39.1 (34.1-44.9) % MCV 89.9 (80.0-100.0) fL MCH 28.7 (25.0-34.0) pg MCHC 32.0 (32.0-36.0) g/dL RDW Std Deviation 43.8 (36.4-46.3) fL RDW Coeff of Ricardo 13.2 (11.5-14.5) % Plt Count 147 (130-400) K/uL MPV 9.1 L (9.4-12.3) fL Immature Gran % (Auto) 0.4 % Neut % (Auto) 76.8 % Lymph % (Auto) 14.6 % [place] % (Auto) 8.0 % Eos % (Auto) 0.0 % Baso % (Auto) 0.2 % Neut # (Auto) 6.43 (1.4-6.5) K/uL Lymph # (Auto) 1.22 (1.2-3.4) K/uL [place] # (Auto) 0.67 (0.24-0.82) K/uL Eos # (Auto) 0.00 (0-0.50) K/uL Baso # (Auto) 0.02 (0-0.2) K/uL Immature Gran # (Auto) 0.03 H (0.00-0.02) K/uL VBG pH (7.36-7.41) VBG pCO2 (38-50) mmHg VBG pO2 mmHg VBG HCO3 mmol/L VBG O2 Saturation % VBG Base Excess mEq/L Sodium 137 (136-145) mmol/L Potassium 3.6 (3.5-5.1) mmol/L Chloride 99 (98-107) mmol/L Carbon Dioxide 34 H (21-32) mmol/L Anion Gap 4 (3-11) BUN 14 (6-23) mg/dl Creatinine 0.52 L (0.6-1.2) mg/dl Est Cr Clr Drug Dosing 87.8 Est GFR ( Amer) 107.6 ml/min Est GFR (Non-Af Amer) 92.8 ml/min BUN/Creatinine Ratio 26.9 H (10-20) Glucose 124 H (70-99(Fasting)) mg/dl Calcium 9.0 (8.5-10.1) mg/dl Total Bilirubin (0.2-1.0) mg/dl AST (13-39) U/L ALT (7-52) U/L Alkaline Phosphatase (34-104) U/L Troponin I High Sens (0-14) pg/ml Total Protein (6.0-8.3) gm/dl Albumin (3.4-5.0) gm/dl Globulin (2.5-4.0) gm/dl Albumin/Globulin Ratio (0.9-2) Lipase (11-82) U/L Procalcitonin (0-0.5) ng/ml SARS-CoV-2 (PCR) NEGATIVE (Negative) Influenza Type A (PCR) Negative (Neg) Influenza Type B (PCR) Negative (Neg) RSV (RT-PCR) Positive A* (Neg) 03/19/22 03/19/22 03/19/22 Range/Units 10:51 10:47 10:47 WBC (4.8-10.8) K/ul RBC (3.93-5.22) M/uL Hgb (12.0-16.0) g/dl Hct (34.1-44.9) % MCV (80.0-100.0) fL MCH (25.0-34.0) pg MCHC (32.0-36.0) g/dL RDW Std Deviation (36.4-46.3) fL RDW Coeff of Ricardo (11.5-14.5) % Plt Count (130-400) K/uL MPV (9.4-12.3) fL Immature Gran % (Auto) % Neut % (Auto) % Lymph % (Auto) % [place] % (Auto) % Eos % (Auto) % Baso % (Auto) % Neut # (Auto) (1.4-6.5) K/uL Lymph # (Auto) (1.2-3.4) K/uL [place] # (Auto) (0.24-0.82) K/uL Eos # (Auto) (0-0.50) K/uL Baso # (Auto) (0-0.2) K/uL Immature Gran # (Auto) (0.00-0.02) K/uL VBG pH 7.38 (7.36-7.41) VBG pCO2 62 H (38-50) mmHg VBG pO2 46 mmHg VBG HCO3 37 mmol/L VBG O2 Saturation 78.8 % VBG Base Excess 9.2 mEq/L Sodium 141 (136-145) mmol/L Potassium 3.8 (3.5-5.1) mmol/L Chloride 102 (98-107) mmol/L Carbon Dioxide 33 H (21-32) mmol/L Anion Gap 6 (3-11) BUN 12 (6-23) mg/dl Creatinine 0.60 (0.6-1.2) mg/dl Est Cr Clr Drug Dosing Not Reportable Est GFR ( Amer) 102.6 ml/min Est GFR (Non-Af Amer) 88.5 ml/min BUN/Creatinine Ratio 20.0 (10-20) Glucose 99 (70-99(Fasting)) mg/dl Calcium 9.2 (8.5-10.1) mg/dl Total Bilirubin 0.6 (0.2-1.0) mg/dl AST 11 L (13-39) U/L ALT 6 L (7-52) U/L Alkaline Phosphatase 57 (34-104) U/L Troponin I High Sens 6.0 (0-14) pg/ml Total Protein 6.9 (6.0-8.3) gm/dl Albumin 3.8 (3.4-5.0) gm/dl Globulin 3.1 (2.5-4.0) gm/dl Albumin/Globulin Ratio 1.2 (0.9-2) Lipase 3 L (11-82) U/L Procalcitonin < 0.05 (0-0.5) ng/ml SARS-CoV-2 (PCR) (Negative) Influenza Type A (PCR) (Neg) Influenza Type B (PCR) (Neg) RSV (RT-PCR) (Neg) 03/19/22 Range/Units 10:47 WBC 7.55 (4.8-10.8) K/ul RBC 4.72 (3.93-5.22) M/uL Hgb 13.6 (12.0-16.0) g/dl Hct 42.8 (34.1-44.9) % MCV 90.7 (80.0-100.0) fL MCH 28.8 (25.0-34.0) pg MCHC 31.8 L (32.0-36.0) g/dL RDW Std Deviation 43.8 (36.4-46.3) fL RDW Coeff of Ricardo 13.2 (11.5-14.5) % Plt Count 147 (130-400) K/uL MPV 8.9 L (9.4-12.3) fL Immature Gran % (Auto) 0.4 % Neut % (Auto) 61.2 % Lymph % (Auto) 28.2 % [place] % (Auto) 8.5 % Eos % (Auto) 1.3 % Baso % (Auto) 0.4 % Neut # (Auto) 4.62 (1.4-6.5) K/uL Lymph # (Auto) 2.13 (1.2-3.4) K/uL [place] # (Auto) 0.64 (0.24-0.82) K/uL Eos # (Auto) 0.10 (0-0.50) K/uL Baso # (Auto) 0.03 (0-0.2) K/uL Immature Gran # (Auto) 0.03 H (0.00-0.02) K/uL VBG pH (7.36-7.41) VBG pCO2 (38-50) mmHg VBG pO2 mmHg VBG HCO3 mmol/L VBG O2 Saturation % VBG Base Excess mEq/L Sodium (136-145) mmol/L Potassium (3.5-5.1) mmol/L Chloride (98-107) mmol/L Carbon Dioxide (21-32) mmol/L Anion Gap (3-11) BUN (6-23) mg/dl Creatinine (0.6-1.2) mg/dl Est Cr Clr Drug Dosing Est GFR ( Amer) ml/min Est GFR (Non-Af Amer) ml/min BUN/Creatinine Ratio (10-20) Glucose (70-99(Fasting)) mg/dl Calcium (8.5-10.1) mg/dl Total Bilirubin (0.2-1.0) mg/dl AST (13-39) U/L ALT (7-52) U/L Alkaline Phosphatase (34-104) U/L Troponin I High Sens (0-14) pg/ml Total Protein (6.0-8.3) gm/dl Albumin (3.4-5.0) gm/dl Globulin (2.5-4.0) gm/dl Albumin/Globulin Ratio (0.9-2) Lipase (11-82) U/L Procalcitonin (0-0.5) ng/ml SARS-CoV-2 (PCR) (Negative) Influenza Type A (PCR) (Neg) Influenza Type B (PCR) (Neg) RSV (RT-PCR) (Neg) Medications Administered Current Inpatient Medications Albuterol (Albut/Ipratrop 3mg/0.5mg Neb 3 Ml Vial) 3 ml NEB Q4R [facility]; Protocol Stop: 04/18/22 16:05 Last Admin: 03/20/22 07:06 Dose: 3 ml Aspirin (Aspirin 81 Mg Ectab) 81 mg PO QAM [facility] Stop: 04/19/22 08:59 Enoxaparin Sodium (Enoxaparin Inj 30 Mg/0.3 Ml Syr) 30 mg SQ Q24H [facility] Stop: 04/18/22 16:59 Last Admin: 03/19/22 18:33 Dose: 30 mg Furosemide (Furosemide 20 Mg Tab) 20 mg PO MoWeFr@0900 [facility] Stop: 04/20/22 08:59 Guaifenesin (Guaifenesin 600 Mg Tabcr) 600 mg PO Q12 [facility] Stop: 04/19/22 08:59 Azithromycin 500 mg/ Dextrose 255 mls @ 125 mls/hr IV Q24H [facility] Stop: 03/27/22 12:59 Levothyroxine Sodium (Levothyroxine Sodium 100 Mcg Tablet) 100 mcg PO DAILYBB [facility] Stop: 04/19/22 06:29 Last Admin: 03/20/22 05:37 Dose: 100 mcg Metoprolol Succinate (Metoprolol Succ 25mg Ext Rel Tab) 25 mg PO BID [facility] Stop: 04/18/22 20:59 Last Admin: 03/19/22 22:03 Dose: 25 mg Prednisone (Prednisone 50 Mg Tab) 50 mg PO DAILY [facility] Stop: 04/19/22 08:59 Vitamin D (Cholecalciferol 1,000 Units 25 Mcg Tab) 2,000 units PO QAM [facility] Stop: 04/19/22 08:59
[2022-03-20] MEDS: ASPIRIN 81 MG ECTAB PO SCH (09:03)
[2022-03-20] MEDS: guaiFENesin 600 MG TABCR PO SCH ×2 (09:03→21:19)
[2022-03-20] MEDS: predniSONE 50 MG TAB PO SCH (09:03)
[2022-03-20] MEDS: CHOLECALCIFEROL 1,000 UNITS 25 MCG TAB PO SCH (09:03)
[2022-03-20] MEDS: METOPROLOL SUCC 25MG EXT REL TAB PO SCH ×2 (09:07→21:19)
--- NOTE | 2022-03-20 11:04 | Electrocardiogram Report ---
Test Reason : Blood Pressure : / mmHG Vent. Rate : 093 BPM Atrial Rate : 093 BPM P-R Int : 220 ms QRS Dur : 100 ms QT Int : 382 ms P-R-T Axes : 049 113 037 degrees QTc Int : 474 ms Sinus rhythm with 1st degree A-V block Right axis deviation Incomplete right bundle branch block Abnormal ECG When compared with ECG of 16-MAR-2021 06:46, T wave inversion no longer evident in Anterior leads Confirmed by Cristian Hernandez ([id number]) on 03/20/2022 11:03:54 AM Referred By: REFERRED SELF Confirmed By:Cristian Hernandez
[2022-03-20] MEDS ORDERED: FUROSEMIDE INJ 20 MG/2 ML VIAL IV ONE (11:16)
[2022-03-20] MEDS ORDERED: ALBUMIN 25% 100 mL 25 GM/100 ML VIAL IV ONE (12:14)
[2022-03-20] MEDS ORDERED: AZITHROMYCIN 500 MG in DEXTROSE 5% 250 ML IV SCH (13:00)
[2022-03-20] MEDS: ENOXAPARIN INJ 30 MG/0.3 ML SYR SQ SCH (15:48)
[2022-03-20] MEDS ORDERED: ALBUT/IPRATROP 3MG/0.5MG NEB 3 ML VIAL NEB PRN (19:18)
[2022-03-20] MEDS: IPRATROPIUM BROMIDE/ALBUTEROL respimat INH INH SCH (19:39)
[2022-03-20] MEDS ORDERED: IPRATROPIUM BROMIDE/ALBUTEROL respimat INH INH SCH (21:00)
[2022-03-21] MEDS: LEVOTHYROXINE SODIUM 100 MCG TABLET PO SCH (05:40)
[2022-03-21] MEDS ORDERED: IPRATROPIUM BROMIDE HFA INHALER INH SCH (07:00)
[2022-03-21] MEDS ORDERED: ALBUTEROL HFA 8 GM INHALER INH SCH (07:00)
[2022-03-21] MEDS: ALBUTEROL HFA 8 GM INHALER INH SCH ×4 (07:19→19:39)
[2022-03-21] MEDS: IPRATROPIUM BROMIDE HFA INHALER INH SCH ×4 (07:20→19:39)
--- NOTE | 2022-03-21 07:45 | Hospitalist Progress Note ---
Date of Service March 21, 2022 Assessment & Plan (1) Acute respiratory failure with hypoxia and hypercarbia: (2) RSV infection: (3) Tachycardia: (4) Chronic right heart failure: (5) Pulmonary hypertension: (6) HTN (hypertension): Plan Acute on Chronic respiratory failure: -at home pt use prn 3L oxygen supplement -Currently not on any inhalers -Procal neg and RSV is positive ---- neg flu and COVID -pt received ceftriaxone, azithro and solumedrol in the ER ---stopped ceftriaxone ---due to diffuse wheezing with possible COPD/Asthma - continue prednisone PO daily, duoned q4hrs and azithro -wean off of oxygen as pt tolerates, currently on RA - PT/OT Tachycardia with hx of paroxysmal atrial tachycardia: -received 500 cc NS bolus on admission -cont. home metoprolol XL dose (25mg BID) -monitor on to tele - HR in 90s R heart failure with pulm HTN: -monitor on tele - monitor fluid status -received 500 cc of NS on admission -will give small dose lasix w/ albumin today -continue aspirin, metoprolol and Lasix Hypothyroidism: -continue levothyroxine Diet: Cardiac DVT PPx: Lovenox Code Status: FULL CODE Emergency Contact: Eileen-daughter [phone] Admission and Anticipated Discharge Date Admission Date: March 19, 2022 Subjective Pt seen in follow up of resp. failure, + RSV Currently sitting up in bed, in no acute distress, currently on RA Continues to have cough No chest pain, currently no increased shortness of breath Denies any abdominal pain, nausea vomiting Review of Systems Review of Systems: All systems reviewed & are unremarkable except as noted in Subjective Physical Exam Physical Exam: General: elderly F sitting up in bed, NAD, well developed, well nourished, average body habitus HEENT: Normocephalic and atraumatic, Normal Conjunctiva, EOMI, Sclera is non- icteric Lungs:good air entry but coarse breath sounds throughout Heart: rrr,Normal S1, S2, no murmur Abdominal:.ND, Soft, NT MSK:trace b/l LE pitting edema Skin: warm, dry Psych:.AAOx3, normal affect Results & Data Results & Data ([facility]) Vital Signs (Past 12 Hours) Vital Signs Temp Pulse Pulse Resp BP BP Pulse Ox 03/21/22 07:41 36.3 C L 89 18 101/61 96 03/21/22 07:20 84 18 96 03/21/22 04:02 36.6 C 94 H 20 99/60 L 92 03/20/22 22:10 91 H 03/20/22 22:00 36.4 C L 96 H 20 118/68 94 03/20/22 21:00 03/20/22 20:02 36.5 C 98 H 18 121/78 92 O2 Del Method 03/21/22 07:41 Room Air 03/21/22 07:20 Room Air 03/21/22 04:02 Room Air 03/20/22 22:10 03/20/22 22:00 Room Air 03/20/22 21:00 Room Air 03/20/22 20:02 Room Air Laboratory Results 03/21/22 03/21/22 Range/Units 08:11 08:11 WBC 12.21 H (4.8-10.8) K/ul RBC 4.73 (3.93-5.22) M/uL Hgb 13.8 (12.0-16.0) g/dl Hct 42.2 (34.1-44.9) % MCV 89.2 (80.0-100.0) fL MCH 29.2 (25.0-34.0) pg MCHC 32.7 (32.0-36.0) g/dL RDW Std Deviation 43.9 (36.4-46.3) fL RDW Coeff of Ricardo 13.5 (11.5-14.5) % Plt Count 200 (130-400) K/uL MPV 9.6 (9.4-12.3) fL Sodium 139 (136-145) mmol/L Potassium 3.6 (3.5-5.1) mmol/L Chloride 99 (98-107) mmol/L Carbon Dioxide 34 H (21-32) mmol/L Anion Gap 6 (3-11) BUN 19 (6-23) mg/dl Creatinine 0.62 (0.6-1.2) mg/dl Est Cr Clr Drug Dosing 73.2 ml/min Est GFR ( Amer) 101.5 ml/min Est GFR (Non-Af Amer) 87.6 ml/min BUN/Creatinine Ratio 30.6 H (10-20) Glucose 84 (70-99(Fasting)) mg/dl Calcium 9.5 (8.5-10.1) mg/dl Phosphorus 2.7 (2.5-4.9) mg/dl Magnesium 2.0 (1.7-2.4) mg/dl Medications Administered Current Inpatient Medications Albuterol (Ipratropium [place]/Albuterol Respimat Inh) 1 puffs INH QIDR [facility] Stop: 04/19/22 19:59 Last Admin: 03/20/22 19:39 Dose: Not Given Albuterol (Albuterol Hfa 8 Gm Inhaler) 1 puffs INH QIDR [facility] Stop: 04/20/22 06:59 Last Admin: 03/21/22 07:19 Dose: 1 puffs Albuterol (Albut/Ipratrop 3mg/0.5mg Neb 3 Ml Vial) 3 ml NEB Q4R PRN; Protocol PRN Reason: Shortness Of Breath Or Wheezing Stop: 04/19/22 22:59 Aspirin (Aspirin 81 Mg Ectab) 81 mg PO QAM [facility] Stop: 04/19/22 08:59 Last Admin: 03/20/22 09:03 Dose: 81 mg Enoxaparin Sodium (Enoxaparin Inj 30 Mg/0.3 Ml Syr) 30 mg SQ Q24H [facility] Stop: 04/18/22 16:59 Last Admin: 03/20/22 15:48 Dose: 30 mg Furosemide (Furosemide 20 Mg Tab) 20 mg PO MoWeFr@0900 [facility] Stop: 04/20/22 08:59 Guaifenesin (Guaifenesin 600 Mg Tabcr) 600 mg PO Q12 [facility] Stop: 04/19/22 08:59 Last Admin: 03/20/22 21:19 Dose: 600 mg Azithromycin 500 mg/ Dextrose 255 mls @ 125 mls/hr IV Q24H [facility] Stop: 03/27/22 12:59 Last Infusion: 03/20/22 17:50 Dose: Infused Ipratropium [place] (Ipratropium [place] Hfa Inhaler) 1 puffs INH QIDR [facility] Stop: 04/20/22 06:59 Last Admin: 03/21/22 07:20 Dose: 1 puffs Levothyroxine Sodium (Levothyroxine Sodium 100 Mcg Tablet) 100 mcg PO DAILYBB [facility] Stop: 04/19/22 06:29 Last Admin: 03/21/22 05:40 Dose: 100 mcg Metoprolol Succinate (Metoprolol Succ 25mg Ext Rel Tab) 25 mg PO BID [facility] Stop: 04/18/22 20:59 Last Admin: 03/20/22 21:19 Dose: 25 mg Prednisone (Prednisone 50 Mg Tab) 50 mg PO DAILY [facility] Stop: 04/19/22 08:59 Last Admin: 03/20/22 09:03 Dose: 50 mg Vitamin D (Cholecalciferol 1,000 Units 25 Mcg Tab) [facility] Stop: 04/19/22 08:59 Last Admin: 03/20/22 09:03 Dose: 2,000 units
[2022-03-21] MEDS: predniSONE 50 MG TAB PO SCH (07:48)
[2022-03-21] MEDS: ASPIRIN 81 MG ECTAB PO SCH (07:48)
[2022-03-21] MEDS: guaiFENesin 600 MG TABCR PO SCH ×2 (07:48→21:19)
[2022-03-21] MEDS: METOPROLOL SUCC 25MG EXT REL TAB PO SCH ×2 (07:48→21:19)
[2022-03-21] MEDS: CHOLECALCIFEROL 1,000 UNITS 25 MCG TAB PO SCH (07:48)
[2022-03-21 08:45] LABS: Hematocrit (blood only) 42.2 % (34.1-44.9); Hemoglobin 13.8 g/dl (12.0-16.0); Mean Corpuscular Hemoglobin 29.2 pg (25.0-34.0); Mean Corpuscular Hgb Conc 32.7 g/dL (32.0-36.0); Mean Corpuscular Volume 89.2 fL (80.0-100.0); Mean Platelet Volume 9.6 fL (9.4-12.3); Platelet Count 200 K/uL (130-400); RDW Coefficient of Variation 13.5 % (11.5-14.5); RDW Standard Deviation 43.9 fL (36.4-46.3); Red Blood Count 4.73 M/uL (3.93-5.22); White Blood Count 12.21 K/ul (4.8-10.8)
[2022-03-21] MEDS ORDERED: FUROSEMIDE 20 MG TAB PO SCH (09:00)
[2022-03-21 09:18] LABS: BUN Creatinine Ratio 30.6 (10-20); Calcium 9.5 mg/dl (8.5-10.1); Creatinine Clr Calc Pharmacy 73.2 ml/min; Est GFR (African American) 101.5 ml/min; Est GFR (Non-African American) 87.6 ml/min; Phosphorus 2.7 mg/dl (2.5-4.9); Potassium 3.6 mmol/L (3.5-5.1)
[2022-03-21] MEDS: IPRATROPIUM BROMIDE/ALBUTEROL respimat INH INH SCH (09:23)
[2022-03-21] MEDS: AZITHROMYCIN 250 MG TAB PO SCH (11:47)
[2022-03-21] MEDS ORDERED: POTASSIUM CHLORIDE CRTAB 20 MEQ TABCR PO STA (16:38)
[2022-03-21] MEDS ORDERED: FUROSEMIDE INJ 20 MG/2 ML VIAL IV ONE (16:40)
[2022-03-21] MEDS ORDERED: ALBUMIN 25% 100 mL 25 GM/100 ML VIAL IV ONE (16:40)
[2022-03-21] MEDS: ENOXAPARIN INJ 30 MG/0.3 ML SYR SQ SCH (17:11)
--- NOTE | 2022-03-21 19:18 | XRay Report ---
XR chest 1V portable CLINICAL HISTORY: follow up COMPARISON STUDY: Chest CT March 16, 2021. Chest radiograph March 19, 2022. FINDINGS: Patient is rotated. There is no pneumothorax. There are possible trace bilateral pleural ef fusions. Mild bibasilar opacities persist. Cardiomegaly is noted without evidence for pulmonary edema . Multiple old left rib fractures are incidentally noted. Central pulmonary arteries are dilated, bet ter depicted on prior CT. IMPRESSION: 1. No significant change in bibasilar opacities and possible trace bilateral pleural effusions. 2. Cardiomegaly. No evidence for pulmonary edema. ACT 112: Negative or not required by law. Electronically signed by: Matty Davis M.D. 03/21/2022 7:15 PM
[2022-03-22] MEDS: LEVOTHYROXINE SODIUM 100 MCG TABLET PO SCH (06:06)
[2022-03-22] MEDS: IPRATROPIUM BROMIDE HFA INHALER INH SCH ×2 (07:02→10:32)
[2022-03-22] MEDS: ALBUTEROL HFA 8 GM INHALER INH SCH ×2 (07:03→10:32)
[2022-03-22 07:16] LABS: BUN Creatinine Ratio 32.8 (10-20); Calcium 9.4 mg/dl (8.5-10.1); Creatinine Clr Calc Pharmacy 74.3 ml/min; Est GFR (African American) 102.1 ml/min; Est GFR (Non-African American) 88.1 ml/min; Phosphorus 3.2 mg/dl (2.5-4.9); Potassium 4.2 mmol/L (3.5-5.1)
[2022-03-22] MEDS: METOPROLOL SUCC 25MG EXT REL TAB PO SCH (07:54)
[2022-03-22] MEDS: guaiFENesin 600 MG TABCR PO SCH (07:54)
[2022-03-22] MEDS: AZITHROMYCIN 250 MG TAB PO SCH (07:55)
[2022-03-22] MEDS: ASPIRIN 81 MG ECTAB PO SCH (07:55)
[2022-03-22] MEDS: CHOLECALCIFEROL 1,000 UNITS 25 MCG TAB PO SCH (07:55)
[2022-03-22] MEDS: predniSONE 50 MG TAB PO SCH (07:55)
--- NOTE | 2022-03-22 08:02 | Hospitalist Progress Note ---
Date of Service March 22, 2022 Assessment & Plan (1) Acute respiratory failure with hypoxia and hypercarbia: (2) RSV infection: (3) Tachycardia: (4) Chronic right heart failure: (5) Pulmonary hypertension: (6) HTN (hypertension): Plan Acute on Chronic respiratory failure: -at home pt use prn 3L oxygen supplement -Currently not on any inhalers -Procal neg and RSV is positive ---- neg flu and COVID -pt received ceftriaxone, azithro and solumedrol in the ER ---stopped ceftriaxone ---due to diffuse wheezing with possible COPD/Asthma - continue prednisone PO, duoneb q4hrs and azithro - guaifenesin, flutter valve, IS -wean off of oxygen as pt tolerates, currently on RA - PT/OT Tachycardia with hx of paroxysmal atrial tachycardia: -cont. home metoprolol XL dose (25mg BID) -monitor on to tele - HR in 90s R heart failure with pulm HTN: -monitor on tele - monitor fluid status -will give small dose lasix w/ albumin today -continue aspirin, metoprolol and Lasix Hypothyroidism: -continue levothyroxine Diet: Cardiac DVT PPx: Lovenox Code Status: FULL CODE Emergency Contact: Eileen-daughter [phone] Admission and Anticipated Discharge Date Admission Date: March 19, 2022 Subjective Pt seen in follow up of resp. failure, + RSV Currently sitting up in bed, in no acute distress, currently on RA Continues to have cough No chest pain, currently no increased shortness of breath Denies any abdominal pain, nausea vomiting She would very much like to go home, says that she can do all respiratory therapies at home. She continues to use flutter valve. Review of Systems Review of Systems: All systems reviewed & are unremarkable except as noted in Subjective Physical Exam Physical Exam: General: elderly F sitting up in bed, NAD, well developed, well nourished, average body habitus HEENT: Normocephalic and atraumatic, Normal Conjunctiva, EOMI, Sclera is non- icteric Lungs:good air entry but coarse breath sounds throughout (however much improved from previous exam) Heart: rrr,Normal S1, S2, no murmur Abdominal:.ND, Soft, NT MSK:trace b/l LE pitting edema Skin: warm, dry Psych:.AAOx3, normal affect Results & Data Results & Data ([facility]) Vital Signs (Past 12 Hours) Vital Signs Temp Pulse Pulse Resp BP BP Pulse Ox 03/22/22 07:05 36.4 C L 84 20 133/78 95 03/22/22 07:03 80 18 95 03/22/22 04:53 36.4 C L 87 20 128/68 93 03/21/22 22:15 75 03/21/22 22:15 75 03/21/22 22:45 36.4 C L 86 20 110/70 93 O2 Del Method 03/22/22 07:05 Room Air 03/22/22 07:03 Room Air 03/22/22 04:53 Room Air 03/21/22 22:15 03/21/22 22:15 03/21/22 22:45 Room Air Laboratory Results 03/22/22 03/21/22 03/21/22 Range/Units 06:36 08:11 08:11 WBC 12.21 H (4.8-10.8) K/ul RBC 4.73 (3.93-5.22) M/uL Hgb 13.8 (12.0-16.0) g/dl Hct 42.2 (34.1-44.9) % MCV 89.2 (80.0-100.0) fL MCH 29.2 (25.0-34.0) pg MCHC 32.7 (32.0-36.0) g/dL RDW Std Deviation 43.9 (36.4-46.3) fL RDW Coeff of Ricardo 13.5 (11.5-14.5) % Plt Count 200 (130-400) K/uL MPV 9.6 (9.4-12.3) fL Sodium 138 139 (136-145) mmol/L Potassium 4.2 3.6 (3.5-5.1) mmol/L Chloride 100 99 (98-107) mmol/L Carbon Dioxide 33 H 34 H (21-32) mmol/L Anion Gap 5 6 (3-11) BUN 20 19 (6-23) mg/dl Creatinine 0.61 0.62 (0.6-1.2) mg/dl Est Cr Clr Drug Dosing 74.3 73.2 ml/min Est GFR ( Amer) 102.1 101.5 ml/min Est GFR (Non-Af Amer) 88.1 87.6 ml/min BUN/Creatinine Ratio 32.8 H 30.6 H (10-20) Glucose 80 84 (70-99(Fasting)) mg/dl Calcium 9.4 9.5 (8.5-10.1) mg/dl Phosphorus 3.2 2.7 (2.5-4.9) mg/dl Magnesium 2.0 2.0 (1.7-2.4) mg/dl Medications Administered Current Inpatient Medications Albuterol (Albuterol Hfa 8 Gm Inhaler) 1 puffs INH QIDR SHELDON Stop: 04/20/22 06:59 Last Admin: 03/22/22 07:03 Dose: 1 puffs Albuterol (Albut/Ipratrop 3mg/0.5mg Neb 3 Ml Vial) 3 ml NEB Q4R PRN; Protocol PRN Reason: Shortness Of Breath Or Wheezing Stop: 04/19/22 22:59 Aspirin (Aspirin 81 Mg Ectab) 81 mg PO QAM SHELDON Stop: 04/19/22 08:59 Last Admin: 03/22/22 07:55 Dose: 81 mg Azithromycin (Azithromycin 250 Mg Tab) 500 mg PO DAILY [facility] Stop: 03/25/22 09:01 Last Admin: 03/22/22 07:55 Dose: 500 mg Enoxaparin Sodium (Enoxaparin Inj 30 Mg/0.3 Ml Syr) 30 mg SQ Q24H SHELDON Stop: 04/18/22 16:59 Last Admin: 03/21/22 17:11 Dose: 30 mg Furosemide (Furosemide 20 Mg Tab) 20 mg PO MoWeFr@0900 [facility] Stop: 04/20/22 08:59 Last Admin: 03/21/22 07:48 Dose: 20 mg Guaifenesin (Guaifenesin 600 Mg Tabcr) 600 mg PO Q12 [facility] Stop: 04/19/22 08:59 Last Admin: 03/22/22 07:54 Dose: 600 mg Ipratropium [place] (Ipratropium [place] Hfa Inhaler) 1 puffs INH QIDR SHELDON Stop: 04/20/22 06:59 Last Admin: 03/22/22 07:02 Dose: 1 puffs Levothyroxine Sodium (Levothyroxine Sodium 100 Mcg Tablet) 100 mcg PO DAILYBB [facility] Stop: 04/19/22 06:29 Last Admin: 03/22/22 06:06 Dose: 100 mcg Metoprolol Succinate (Metoprolol Succ 25mg Ext Rel Tab) 25 mg PO BID [facility] Stop: 04/18/22 20:59 Last Admin: 03/22/22 07:54 Dose: 25 mg Prednisone (Prednisone 50 Mg Tab) 50 mg PO DAILY [facility] Stop: 04/19/22 08:59 Last Admin: 03/22/22 07:55 Dose: 50 mg Vitamin D (Cholecalciferol 1,000 Units 25 Mcg Tab) [facility]: 04/19/22 08:59 Last Admin: 03/22/22 07:55 Dose: 2,000 units
[2022-03-22] MEDS ORDERED: ALBUMIN 25% 100 mL 25 GM/100 ML VIAL IV ONE (12:08)
[2022-03-22] MEDS ORDERED: FUROSEMIDE INJ 20 MG/2 ML VIAL IV ONE (12:08)
--- NOTE | 2022-03-22 13:21 | Discharge Summary ---
Date of Service March 22, 2022 Admission HPI Per Admitting Provider Pt is a 76 y/o F with hx of chronic respiratory failure on prn 3L oxygen supplement, R heart failure with pulm hypertension, hypothyroidism, and Paroxysmal atrial tachycardia brought into the ER with 1 week hx of worsening cough and chest congestion. At bedside: pt complained of SOB but denied any CP, dizziness, abd pain, N/V or diarrhea. Per pt she does not use any inhalers at home. Denied any hx of smoking. Admission Exam Per Admitting Provider General:.NC in place,NAD, well developed, well nourished, average body habitus HEENT:.dry mucous membraine,Normocephalic and atraumatic, Normal Conjunctiva, EOMI, Sclera is non-icteric Lungs:.good air entry b/l but diffuse b/l exp wheezing and rales Heart:.sinus tachy,Normal S1, S2, no murmur Abdominal:.ND, Soft, NT MSK:trace b/l LE pitting edema Psych:.AAOx3, normal affect Principal Diagnosis Acute on chronic resp. failure positive RSV virus infection Discharge Exam General: elderly F sitting up in bed, NAD, well developed, well nourished, average body habitus HEENT: Normocephalic and atraumatic, Normal Conjunctiva, EOMI, Sclera is non- icteric Lungs:good air entry but coarse breath sounds throughout (however much improved from previous exam) Heart: rrr,Normal S1, S2, no murmur Abdominal:.ND, Soft, NT MSK:trace b/l LE pitting edema Skin: warm, dry Psych:.AAOx3, normal affect Discharge Data Allergies Allergy/AdvReac Type Severity Reaction Status Date / Time No Known Allergies Allergy Verified 03/14/21 07:50 Consultations 03/19/22 13:19 ED Decision to Admit Stat Hospital Course (1) Acute respiratory failure with hypoxia and hypercarbia: (2) RSV infection: (3) Tachycardia: (4) Chronic right heart failure: (5) Pulmonary hypertension: (6) HTN (hypertension): Plan Acute on Chronic respiratory failure: -at home pt use prn 3L oxygen supplement -Currently not on any inhalers -Procal neg and RSV is positive ---- neg flu and COVID -pt received ceftriaxone, azithro and solumedrol in the ER ---stopped ceftriaxone ---due to diffuse wheezing with possible COPD/Asthma - continue prednisone PO, duoneb q4hrs and azithro - guaifenesin, flutter valve, IS -wean off of oxygen as pt tolerates, currently on RA - PT/OT - will DC on azithromycin and a short prednisone taper Tachycardia with hx of paroxysmal atrial tachycardia: -cont. home metoprolol XL dose (25mg BID) -monitor on to tele - HR in 90s R heart failure with pulm HTN: -monitor on tele - monitor fluid status -will give small dose lasix w/ albumin today -continue aspirin, metoprolol and Lasix Hypothyroidism: -continue levothyroxine Total Time Total Time Spent Total Time Spent (In Minutes): 40 Discharge Plan Discharge Items Patient Disposition: Home - Self-Care Reason For Visit: respiratory failure Discharge Diagnosis: Acute on chronic resp. failure positive RSV virus infection Activity: Per Instructions section Non-emergency contact: Primary Care Provider Call non-emergency contact if: you have any medication questions and your symptoms worsen Follow-up/Referrals: Matt Banda DO [Primary Care Provider] - (Date & Time 03/24/2022 11:20 AM Provider Matt Banda DO Department [facility] ) Diet: Heart Healthy Addtl Attending Provider Instructions: Follow-up with your primary care doctor, the appointment was scheduled for you for March 24. Continue taking antibiotic - azithromycin as prescribed. Continue taking prednisone taper as prescribed 40 mg for next 2 days, then 20 mg for 3 days. Continue taking guaifenesin, and use flutter valve and incentive spirometer. For shortness of breath, or wheezing you can use albuterol inhaler. Pending Studies at Discharge: No Stand-Alone Forms: [employer], Smoking Cessation Medications and DC Order Prescriptions: New albuterol sulfate [Ventolin HFA] 90 mcg/actuation Hfa Aerosol Inhaler 1 puff inhalation QIDR PRN (Reason: shortness of breath or wheezing) Qty: 8.5 0RF guaifenesin [Mucinex] 600 mg Tablet Extended Release 12hr 600 mg PO Q12 7 Days Qty: 14 0RF azithromycin 250 mg tablet 250 mg PO DAILY Qty: 3 0RF prednisone 20 mg tablet 20 mg PO DAILY Qty: 7 0RF Rx Instructions: Take 2 tabs for 2 days, then take 1 tab for 3 days Continued aspirin [Adolph Low Dose Aspirin] 81 mg Tablet,Delayed Release (Dr/Ec) 81 mg PO QAM cholecalciferol (vitamin D3) [Vitamin D3] 50 mcg (2,000 unit) Capsule 2,000 unit PO QAM Rx Instructions: PT'S DAUGHTER NOT SURE OF STRENGTH furosemide 20 mg Tablet 20 mg PO MoWeFr@0900 Qty: 30 0RF levothyroxine 100 mcg tablet 100 mcg PO DAILY metoprolol succinate 25 mg tablet extended release 24 hr 25 mg PO BID Discharge Orders: Discharge Order (Routine); Ordered 03/22/22 Ordered By: Ankush Hernandez Admission Data Admit Date/Time: 03/19/22 13:50 Attending Provider: Ankush Hernandez Admit Provider: Luis Hayden Primary Care Provider: Matt Banda Other Providers: Luis Hayden
== END 2022-03-22 15:45 | disposition home or self-care (01) | DRG 189 ==
LOC: ED 09:47 → SUATTDRO 13:50 → 2W 13:50

== ENCOUNTER 2022-07-24 08:00 | Inpatient (IN) ==
[2022-07-24] MEDS ORDERED: SODIUM CHLORIDE 0.9% 1000ML 1,000 ML IV SCH (08:15)
[2022-07-24 09:09] LABS: Basophils # (auto) 0.03 K/uL (0-0.2); Basophils % (auto) 0.4 %; Eosinophils # (auto) 0.03 K/uL (0-0.50); Eosinophils % (auto) 0.4 %; Hematocrit (blood only) 42.3 % (37.0-47.0); Hemoglobin 13.9 g/dl (12.0-16.0); Immature Granulocytes # (auto) 0.03 K/uL (0.01-0.20); Immature Granulocytes % (auto) 0.4 %; Lymphocytes # (auto) 0.89 K/uL (1.2-3.4); Lymphocytes % (auto) 11.2 %; Mean Corpuscular Hemoglobin 29.1 pg (25.0-34.0); Mean Corpuscular Hgb Conc 32.9 g/dL (32.0-36.0); Mean Corpuscular Volume 88.7 fL (80.0-100.0); Monocytes # (auto) 0.84 K/uL (0.11-0.59); Monocytes % (auto) 10.6 %; Neutrophils # (auto) 6.12 K/uL (1.40-6.50); Platelet Count 160 K/uL (130-400); RDW Coefficient of Variation 13.1 % (11.5-14.5); RDW Standard Deviation 42.5 fL (36.4-46.3); Red Blood Count 4.77 M/uL (4.20-5.40); White Blood Count 7.94 K/ul (4.8-10.8)
[2022-07-24 09:27] LABS: Albumin Level 3.9 gm/dl (3.4-5.0); BUN Creatinine Ratio 21.9 (10-20); Bilirubin Direct 0.1 mg/dl (0-0.2); Bilirubin,Total 0.7 mg/dl (0.2-1.0); Creatinine Clr Calc Pharmacy 56.5 ml/min; Est GFR (African American) 100.5 ml/min; Est GFR (Non-African American) 86.7 ml/min; Magnesium 1.9 mg/dl (1.7-2.4); Potassium 4.1 mmol/L (3.5-5.1)
[2022-07-24 09:34] LABS: Troponin I High Sensitivity 27.5 pg/ml (0-14)
[2022-07-24 09:50] LABS: Adenovirus PCR Not Detected (NotDetected); Bordetella parapertussis PCR Not Detected (NotDetected); Bordetella pertussis PCR Not Detected (NotDetected); Chlamydia pneumoniae PCR Not Detected (NotDetected); Coronavirus 229E PCR Not Detected (NotDetected); Coronavirus HKU1 PCR Not Detected (NotDetected); Coronavirus NL63 PCR Not Detected (NotDetected); Coronavirus OC43PCR Not Detected (NotDetected); Human Metapneumovirus PCR Not Detected (NotDetected); Influenza A PCR Not Detected (NotDetected); Influenza B PCR Not Detected (NotDetected); Mycoplasma pneumoniae PCR Not Detected (NotDetected); Parainfluenza Virus 1 PCR Not Detected (NotDetected); Parainfluenza Virus 2 PCR Not Detected (NotDetected); Parainfluenza Virus 3 PCR Not Detected (NotDetected); Parainfluenza Virus 4 PCR Not Detected (NotDetected); Respiratory Syncytial VirusPCR Not Detected (NotDetected); Rhinovirus/Enterovirus PCR Not Detected (NotDetected)
[2022-07-24 09:53] LABS: Coronavirus CoV-2 (COVID19)PCR DETECTED (NotDetected)
--- NOTE | 2022-07-24 10:16 | XRay Report ---
XR chest 1V portable HISTORY: Sepsis COMPARISON: Chest 03/21/2022. FINDINGS: No pneumothorax. No pleural effusions. The heart remains enlarged. Bilateral hilar prominen ce is also unchanged. This may be due to enlargement of the central pulmonary vessels. There are old, healed left-sided rib fractures. No new focal lung consolidations. No evidence for pulmonary edema. Bibasilar linear densities persist and favor subsegmental atelectasis. IMPRESSION: No significant change compared to the prior study. No acute process. ACT 112: Negative or not required by law. Electronically signed by: Lee Hurley M.D. 07/24/2022 10:15 AM
--- NOTE | 2022-07-24 10:33 | Electrocardiogram Report ---
Test Reason : Blood Pressure : / mmHG Vent. Rate : 112 BPM Atrial Rate : 112 BPM P-R Int : 206 ms QRS Dur : 092 ms QT Int : 310 ms P-R-T Axes : 058 116 034 degrees QTc Int : 423 ms Sinus tachycardia with occasional Premature ventricular complexes Right axis deviation Incomplete right bundle branch block Abnormal ECG When compared with ECG of 19-MAR-2022 10:30, Premature ventricular complexes are now Present Confirmed by Charly Hi ([id number]) on 07/24/2022 10:33:49 AM Referred By: Confirmed By:Edy Hi
[2022-07-24] MEDS ORDERED: MAGNESIUM HYDROXIDE SUSP 30 ML UDC PO PRN (11:33)
[2022-07-24] MEDS ORDERED: POLYETHYLENE (MIRALAX) 17 GM PACK PO PRN (11:33)
[2022-07-24] MEDS ORDERED: ACETAMINOPHEN 325 MG TAB PO PRN (11:33)
[2022-07-24] MEDS ORDERED: ALUMINUM/MAGNESIUM SUSP 30 ML UDC PO PRN (11:33)
[2022-07-24] MEDS ORDERED: ONDANSETRON INJ 2 MG/ML 2 ML VIAL IV PRN (11:33)
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
[2022-07-24] MEDS: ENOXAPARIN INJ 40 MG/0.4 ML SYR SQ SCH (12:21)
[2022-07-24] MEDS: dexAMETHasone 6 MG in SYRINGE 0 ML IV SCH (12:22)
[2022-07-24] MEDS ORDERED: REMDESIVIR 200 MG in SODIUM CHLORIDE 0.9% 210 ML IV ONE (12:30)
[2022-07-24] MEDS ORDERED: LEVALBUTEROL HCL 1.25 MG/3 ML NEB NEB PRN (12:38)
[2022-07-24] MEDS: FAMOTIDINE 20 MG TAB PO SCH (15:17)
[2022-07-24] MEDS: BENZONATATE 100 MG CAPSULE PO SCH ×2 (17:11→20:08)
[2022-07-24] MEDS: METOPROLOL SUCC 25MG EXT REL TAB PO SCH ×2 (20:09)
[2022-07-24] MEDS: guaiFENesin 600 MG TABCR PO SCH (20:09)
[2022-07-24] MEDS: ASPIRIN 81 MG ECTAB PO SCH (20:09)
[2022-07-25 01:33] LABS: Appearance Urine Clear (Clear); Bacteria Urine Automated Negative (Negative); Bilirubin Urine Negative (Negative); Blood Urine Negative (Negative); Color Urine Yellow; Glucose Urine UA Negative (Negative); Ketones Urine Negative (Negative); Leukocyte Esterase Urine Negative (Negative); Nitrite Urine Negative (Negative); Protein Urine Trace (Negative); RBC Urine Automated 0-4 /hpf (0-4); Specific Gravity Urine 1.016 (1.000-1.030); Urobilinogen Urine Negative (Negative)
[2022-07-25] MEDS: LEVOTHYROXINE SODIUM 100 MCG TABLET PO SCH (06:08)
[2022-07-25 07:14] LABS: Hemoglobin 12.3 g/dl (12.0-16.0); Mean Corpuscular Hemoglobin 28.6 pg (25.0-34.0); Mean Corpuscular Hgb Conc 31.5 g/dL (32.0-36.0); Mean Corpuscular Volume 90.7 fL (80.0-100.0); Mean Platelet Volume 9.2 fL (9.4-12.4); Platelet Count 130 K/uL (130-400); RDW Coefficient of Variation 12.9 % (11.5-14.5); RDW Standard Deviation 42.6 fL (36.4-46.3); White Blood Count 4.75 K/ul (4.8-10.8)
[2022-07-25 07:43] LABS: Albumin Level 3.5 gm/dl (3.4-5.0); BUN Creatinine Ratio 26.3 (10-20); Bilirubin Direct 0.1 mg/dl (0-0.2); Bilirubin,Total 0.3 mg/dl (0.2-1.0); Calcium 8.7 mg/dl (8.5-10.1); Creatinine Clr Calc Pharmacy 77.4 ml/min; Est GFR (African American) 104.4 ml/min; Phosphorus 3.5 mg/dl (2.5-4.9); Total Protein 6.1 gm/dl (6.0-8.3)
[2022-07-25] MEDS: BENZONATATE 100 MG CAPSULE PO SCH ×3 (08:19→19:49)
[2022-07-25] MEDS: METOPROLOL SUCC 25MG EXT REL TAB PO SCH ×2 (08:19→19:49)
[2022-07-25] MEDS: ASPIRIN 81 MG ECTAB PO SCH (08:19)
[2022-07-25] MEDS: guaiFENesin 600 MG TABCR PO SCH ×2 (08:20→19:49)
[2022-07-25] MEDS ORDERED: FUROSEMIDE 20 MG TAB PO SCH (09:00)
[2022-07-25] MEDS: ENOXAPARIN INJ 40 MG/0.4 ML SYR SQ SCH (09:32)
[2022-07-25] MEDS: FAMOTIDINE 20 MG TAB PO SCH (09:32)
[2022-07-25] MEDS: REMDESIVIR 100 MG in SODIUM CHLORIDE 0.9% 230 ML IV SCH (12:14)
[2022-07-25] MEDS: dexAMETHasone 6 MG in SYRINGE 0 ML IV SCH (12:15)
--- NOTE | 2022-07-25 12:46 | Hospitalist Progress Note ---
Date of Service July 25, 2022 Assessment & Plan (1) Sepsis: (2) Hypoxia: Plan Met SIRS criteria with tachycardia and tachypnea on presentation Likely due to COVID-19 infection Patient presents with illness/cough/increasing oxygen requirement for 1 day [employer] SUPER[employer]. Patient is not vaccinated and does not wish to be vaccinated on discussion at bedside with patient and her daughter. Per Admitting Dr, patient generally uses 3 L oxygen for about half an hour up to 3 times a day. 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 +COVID test Continue symptomatic management with Tessalon Perle/Mucinex. Wean off oxygen. Continue dexamethasone and remdesivir while inpatient. Continue nebs, incentive spirometry and flutter We will need 2 step prior to discharge. Likely demand ischemia: Troponin minimally elevated, trend troponin, patient with no chest pain. Likely secondary to acute illness. EKG noted incomplete right bundle branch block which is old and some PVCs. Other chronic medical conditions: Hypothyroidism: Continue home levothyroxine Right heart failure: patient appears euvolemic, continue home meds including Lasix Full code DVT prophylaxis: Lovenox Called daughter and updated her I spent a total of 40 minutes coordinating, documenting and providing care for this patient excluding time spent in performance of separately billed services Admission and Anticipated Discharge Date Admission Date: July 24, 2022 Subjective Patient seen and examined this morning Reports feeling better today Still has cough Denies shortness of breath Reported that she uses oxygen occasionally at home Reports weakness but improving. Denies chest pain, nausea, vomiting, abdominal pain, diarrhea Denies dysuria, frequency, urgency Denies fevers or chills Physical Exam Constitutional: + well hydrated; no acute distress Elderly woman in no distress Eyes: PERRL, conjunctivae normal, anicteric sclerae ENMT: external ear and nose normal, oropharynx normal Respiratory: normal respiratory effort, lungs clear to auscultation Cardiovascular: Rate/Rhythm: regular rate and regular rhythm S1-S2 Gastrointestinal (Abdomen): normal bowel sounds, soft, nontender, no hepatosplenomegaly Neurologic: PERRL, EOMI, accommodation nl, no face palsy, no dysarthria Results & Data Results & Data Vital Signs (Past 12 Hours) Vital Signs Temp Pulse Pulse Resp BP Pulse Ox O2 Del Method 07/25/22 11:53 36.7 C 78 18 99/56 L 96 Room Air 07/25/22 09:44 Nasal Cannula 07/25/22 08:14 36.4 C L 72 18 98/55 L 99 Nasal Cannula 07/25/22 07:14 80 07/25/22 03:36 36.5 C 70 18 102/67 98 Nasal Cannula O2 Flow Rate 07/25/22 11:53 07/25/22 09:44 3 07/25/22 08:14 2 07/25/22 07:14 07/25/22 03:36 Laboratory Results Abnormal lab results 07/24/22 07/24/22 07/24/22 Range/Units 14:34 14:34 17:09 WBC (4.8-10.8) K/ul MCHC (32.0-36.0) g/dL MPV (9.4-12.4) fL Creatinine (0.6-1.2) mg/dl BUN/Creatinine Ratio (10-20) Glucose (70-99(Fasting)) mg/dl POC Glucose 132 H (70-99) mg/dl ALT (7-52) U/L Troponin I High Sens 24.8 H (0-14) pg/ml B-Natriuretic Peptide 136 H (0-100) pg/ml Urine Protein (Negative) U Epithel Cells (Auto) (0-5) /lpf 07/24/22 07/24/22 07/24/22 Range/Units 20:15 21:00 23:14 WBC (4.8-10.8) K/ul MCHC (32.0-36.0) g/dL MPV (9.4-12.4) fL Creatinine (0.6-1.2) mg/dl BUN/Creatinine Ratio (10-20) Glucose (70-99(Fasting)) mg/dl POC Glucose 179 H 111 H (70-99) mg/dl ALT (7-52) U/L Troponin I High Sens 15.6 H D (0-14) pg/ml B-Natriuretic Peptide (0-100) pg/ml Urine Protein (Negative) U Epithel Cells (Auto) (0-5) /lpf 07/24/22 07/25/22 07/25/22 Range/Units Unknown 06:51 06:51 WBC 4.75 L (4.8-10.8) K/ul MCHC 31.5 L (32.0-36.0) g/dL MPV 9.2 L (9.4-12.4) fL Creatinine 0.57 L (0.6-1.2) mg/dl BUN/Creatinine Ratio 26.3 H (10-20) Glucose 111 H (70-99(Fasting)) mg/dl POC Glucose (70-99) mg/dl ALT 6 L (7-52) U/L Troponin I High Sens (0-14) pg/ml B-Natriuretic Peptide (0-100) pg/ml Urine Protein Trace H (Negative) U Epithel Cells (Auto) 5-10 H (0-5) /lpf (1) Sepsis Sepsis acute organ dysfunction status: unspecified Sepsis type: sepsis due to unspecified organism Qualified Code(s): A41.9 - Sepsis, unspecified organism
[2022-07-26] MEDS: LEVOTHYROXINE SODIUM 100 MCG TABLET PO SCH (05:37)
[2022-07-26] MEDS: FAMOTIDINE 20 MG TAB PO SCH (08:31)
[2022-07-26] MEDS: ASPIRIN 81 MG ECTAB PO SCH (08:31)
[2022-07-26] MEDS: METOPROLOL SUCC 25MG EXT REL TAB PO SCH (08:31)
[2022-07-26] MEDS: guaiFENesin 600 MG TABCR PO SCH (08:31)
[2022-07-26] MEDS: ENOXAPARIN INJ 40 MG/0.4 ML SYR SQ SCH (08:32)
[2022-07-26] MEDS: BENZONATATE 100 MG CAPSULE PO SCH (08:32)
[2022-07-26 08:55] LABS: Hematocrit (blood only) 42.6 % (37.0-47.0); Hemoglobin 13.5 g/dl (12.0-16.0); Mean Corpuscular Hemoglobin 28.7 pg (25.0-34.0); Mean Corpuscular Hgb Conc 31.7 g/dL (32.0-36.0); Mean Corpuscular Volume 90.6 fL (80.0-100.0); Mean Platelet Volume 9.3 fL (9.4-12.4); Platelet Count 177 K/uL (130-400); RDW Coefficient of Variation 12.9 % (11.5-14.5); RDW Standard Deviation 42.5 fL (36.4-46.3); White Blood Count 5.55 K/ul (4.8-10.8)
[2022-07-26 09:24] LABS: Albumin Globulin Ratio 1.3 (0.9-2); Albumin Level 3.7 gm/dl (3.4-5.0); BUN Creatinine Ratio 38.8 (10-20); Bilirubin,Total 0.3 mg/dl (0.2-1.0); Calcium 8.9 mg/dl (8.5-10.1); Creatinine Clr Calc Pharmacy 65.8 ml/min; Est GFR (Non-African American) 85.4 ml/min; Globulin 2.8 gm/dl (2.5-4.0); Potassium 4.2 mmol/L (3.5-5.1); Total Protein 6.5 gm/dl (6.0-8.3)
[2022-07-26] MEDS: REMDESIVIR 100 MG in SODIUM CHLORIDE 0.9% 230 ML IV SCH (11:48)
[2022-07-26] MEDS: dexAMETHasone 6 MG in SYRINGE 0 ML IV SCH (11:49)
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
== END 2022-07-26 13:59 | disposition home or self-care (01) | DRG 871 ==
LOC: ED 08:00 → 2N 11:33 → SUATTDRO 11:33 → 2N 15:48

== ENCOUNTER 2023-02-19 10:02 | Inpatient (IN) ==
[2023-02-19] MEDS ORDERED: SODIUM CHLORIDE 0.9% 500 ML IV STA (10:40)
--- NOTE | 2023-02-19 10:45 | Emergency Department Note ---
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 Parainfluenza 3 (PCR) (NotDetected) Parainfluenza 4 (PCR) (NotDetected) RSV (PCR) (NotDetected) Entero/Rhino (PCR) (NotDetected) Blood Parasites ID Administered Medications Amiodarone HCl/Dextrose (Nexterone / D5w) 360 mg in 200 mls @ 33.333 mls/hr IV ONE ONE Stop: 02/19/23 17:34 Last Admin: 02/19/23 11:45 Dose: 1 mg/min, 33.3 mls/hr Documented By: STEVE Co-signed By: CHELSIE Discontinued Medications Sodium Chloride (Nss) 500 mls @ 999 mls/hr IV .Q31M STA Stop: 02/19/23 11:10 Last Infusion: 02/19/23 11:36 Dose: 999 mls/hr Documented By: Admin: 02/19/23 11:04 Dose: 999 mls/hr Documented By: STEVE Sodium Chloride (Nss) 500 mls @ 999 mls/hr IV .Q31M ONE Stop: 02/19/23 11:44 Last Infusion: 02/19/23 12:20 Dose: 999 mls/hr Documented By: Admin: 02/19/23 11:18 Dose: 999 mls/hr Documented By: CEK Magnesium Sulfate/Dextrose (Magnesium Sulfate / D5w) 1 gm in 100 mls @ 400 mls/hr IV Q15M SHELDON Stop: 02/19/23 11:29 Last Infusion: 02/19/23 11:41 Dose: 400 mls/hr Documented By: Admin: 02/19/23 11:24 Dose: 400 mls/hr Documented By: STEVE Amiodarone HCl/Dextrose (Nexterone / D5w) 150 mg in 100 mls @ 600 mls/hr IV NOW STA Stop: 02/19/23 11:34 Last Infusion: 02/19/23 11:48 Dose: 600 mls/hr Documented By: STEVE Co-signed By: JANETH Admin: 02/19/23 11:32 Dose: 600 mls/hr Documented By: STEVE Co-signed By: EILEEN Cefepime HCl (Maxipime) 2,000 mg in 20 mls @ 5 mls/min IV NOW STA; Protocol Stop: 02/19/23 11:34 Last Admin: 02/19/23 11:39 Dose: 5 mls/min Documented By: STEVE Imaging Data Radiologist's Impression: Chest X-Ray 02/19/23 10:40 XR chest 1V portable CLINICAL HISTORY: sob, tachy, hypoxia TECHNIQUE: Single frontal radiograph of the chest was obtained. Comparison: Comparison is made to chest radiograph 07/24/[address] chest 03/16/2021 FINDINGS: Exam is limited by patient rotation. Cardiomegaly is noted. Bilateral perihilar opacities are noted. No evidence of pleural effusion or pneumothorax. IMPRESSION: Cardiomegaly and bilateral hilar prominence which likely represents prominent pulmonary vasculature, although superimposed aspiration/pneumonia cannot be excluded. ACT 112: Negative or not required by law. Electronically signed by: Shai Pineda M.D. 02/19/2023 11:36 AM Discharge Plan Visit Data Chief Complaint: Flu Like Symptoms Stated Complaint: FLU LIKE SYMPTOMS ED Provider: Blu Galicia Discharge Problem: Pneumonia, Hypoxia, Elevated troponin, Atrial flutter with rapid ventricular response, Elevated lactic acid level Patient Disposition: Being Evaluated by Hospitalist Forms Stand Alone Forms: [facility] [employer] Prescriptions Prescriptions: No Action aspirin [Adolph Low Dose Aspirin] 81 mg Tablet,Delayed Release (Dr/Ec) 81 mg PO QAM cholecalciferol (vitamin D3) [Vitamin D3] 50 mcg (2,000 unit) Capsule 2,000 unit PO QAM Rx Instructions: PT'S DAUGHTER NOT SURE OF STRENGTH furosemide 20 mg Tablet 20 mg PO MoWeFr@0900 Qty: 30 0RF levothyroxine 100 mcg tablet 100 mcg PO DAILY metoprolol succinate 25 mg tablet extended release 24 hr 25 mg PO BID atorvastatin 20 mg tablet 20 mg PO QAM Referrals Referrals: Matt Banda DO [Outside Practitioners] - Pneumonia Qualifiers: Pneumonia type: due to unspecified organism Laterality: bilateral Lung location: unspecified part of lung Qualified Code(s): J18.9 - Pneumonia, unspecified organism
[2023-02-19 10:59] LABS: iSTAT Creatinine 0.7 mg/dl (0.6-1.3); iSTAT Ionized Calcium 1.07 mmol/l (1.12-1.32)
[2023-02-19 11:08] LABS: Albumin Level 3.5 gm/dl (3.4-5.0); BUN Creatinine Ratio 18.2 (10-20); Bilirubin,Total 1.2 mg/dl (0.2-1.0); Calcium 9.3 mg/dl (8.6-10.3); Creatinine Clr Calc Pharmacy 55.9 ml/min; Est GFR (African American) 86.3 ml/min; Est GFR (Non-African American) 74.5 ml/min; Globulin 3.5 gm/dl (2.5-4.0); Potassium 4.1 mmol/L (3.5-5.1)
[2023-02-19 11:14] LABS: Troponin I High Sensitivity 42.5 pg/ml (0-14)
[2023-02-19] MEDS ORDERED: SODIUM CHLORIDE 0.9% 500 ML IV ONE (11:14)
[2023-02-19] MEDS ORDERED: MAGNESIUM SULFATE / D5W 1 GM/100 ML BAG IV SCH (11:15)
[2023-02-19 11:25] LABS: INR 1.2 (0.9-1.1); Prothrombin Time 12.9 Seconds (9.0-12.0)
[2023-02-19] MEDS ORDERED: STAT IV Infusion **Titration per Protocol STA (11:25)
[2023-02-19] MEDS ORDERED: AMIODARONE IV BOLUS & DRIP IV STA (11:25)
[2023-02-19] MEDS ORDERED: 0.2 MICRON FILTER SET 1 EACH IV STA (11:25)
[2023-02-19] MEDS ORDERED: AMIODARONE / D5W 150 MG/100 ML BAG IV STA (11:25)
[2023-02-19] MEDS ORDERED: CEFEPIME 2,000 MG/20 ML VIAL IV STA (11:31)
[2023-02-19] MEDS ORDERED: AMIODARONE / D5W 360 MG/200 ML BAG IV ONE (11:35)
[2023-02-19 11:37] LABS: Magnesium 1.9 mg/dl (1.7-2.4)
--- NOTE | 2023-02-19 11:37 | XRay Report ---
XR chest 1V portable CLINICAL HISTORY: sob, tachy, hypoxia TECHNIQUE: Single frontal radiograph of the chest was obtained. Comparison: Comparison is made to chest radiograph 07/24/[address] chest 03/16/2021 FINDINGS: Exam is limited by patient rotation. Cardiomegaly is noted. Bilateral perihilar opacities are noted. No evidence of pleural effusion or pneumothorax. IMPRESSION: Cardiomegaly and bilateral hilar prominence which likely represents prominent pulmonary vasculature, although superimposed aspiration/pneumonia cannot be excluded. ACT 112: Negative or not required by law. Electronically signed by: Shai Pineda M.D. 02/19/2023 11:36 AM
[2023-02-19 11:52] LABS: Thyroid Stimulating Hormone 0.403 uIu/ml (0.300-4.500)
[2023-02-19 12:00] LABS: Basophils # (auto) 0.05 K/uL (0.00-0.20); Basophils % (auto) 0.3 %; Hemoglobin 11.4 g/dl (12.0-16.0); Immature Granulocytes # (auto) 0.18 K/uL (0.01-0.20); Immature Granulocytes % (auto) 1.1 %; Lymphocytes # (auto) 1.18 K/uL (1.20-3.40); Mean Corpuscular Hemoglobin 28.4 pg (25.0-34.0); Mean Corpuscular Hgb Conc 32.6 g/dL (32.0-36.0); Mean Corpuscular Volume 87.3 fL (80.0-100.0); Mean Platelet Volume 9.4 fL (9.4-12.4); Monocytes # (auto) 0.81 K/uL (0.11-0.59); Monocytes % (auto) 4.8 %; Neutrophils # (auto) 14.74 K/uL (1.40-6.50); Neutrophils % (auto) 86.8 %; Platelet Count 159 K/uL (130-400); RDW Coefficient of Variation 13.2 % (11.5-14.5); RDW Standard Deviation 42.5 fL (36.4-46.3); Red Blood Count 4.01 M/uL (4.20-5.40); White Blood Count 16.96 K/ul (4.8-10.8)
[2023-02-19 12:04] LABS: Adenovirus PCR Not Detected (NotDetected); Bordetella parapertussis PCR Not Detected (NotDetected); Bordetella pertussis PCR Not Detected (NotDetected); Chlamydia pneumoniae PCR Not Detected (NotDetected); Coronavirus 229E PCR Not Detected (NotDetected); Coronavirus CoV-2 (COVID19)PCR Not Detected (NotDetected); Coronavirus HKU1 PCR Not Detected (NotDetected); Coronavirus NL63 PCR Not Detected (NotDetected); Coronavirus OC43PCR Not Detected (NotDetected); Human Metapneumovirus PCR Not Detected (NotDetected); Influenza A PCR Not Detected (NotDetected); Influenza B PCR Not Detected (NotDetected); Mycoplasma pneumoniae PCR Not Detected (NotDetected); Parainfluenza Virus 1 PCR Not Detected (NotDetected); Parainfluenza Virus 2 PCR Not Detected (NotDetected); Parainfluenza Virus 3 PCR Not Detected (NotDetected); Parainfluenza Virus 4 PCR Not Detected (NotDetected); Respiratory Syncytial VirusPCR Not Detected (NotDetected); Rhinovirus/Enterovirus PCR Not Detected (NotDetected)
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
[2023-02-19] MEDS ORDERED: Heparin IV Adult Wt-Based Standard WITH Bolus Protocol IV STA (13:53)
[2023-02-19] MEDS ORDERED: Heparin IV Adult Wt-Based Standard WITH Bolus Protocol IV SCH (14:05)
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
[2023-02-19] MEDS ORDERED: ACETAMINOPHEN 325 MG TAB PO PRN (14:48)
[2023-02-19] MEDS: HEPARIN SODIUM/DEXTROSE 25,000 UNITS/500 ML BAG IV SCH (15:10)
[2023-02-19] MEDS ORDERED: HEPARIN SOD (PORCINE) 1000 UNIT/ML IV ONE (15:15)
[2023-02-19] MEDS: cefTRIAXone SODIUM 2,000 MG in DEXTROSE 5 % MINI-B 50 ML IV SCH (15:25)
[2023-02-19] MEDS ORDERED: INFLUENZA VACCINE HIGH-DOSE (HD-IIV4) PF 65+ 0.7mL SYR IM ONE (16:45)
[2023-02-19 16:52] LABS: Partial Thromboplastin Ratio > 4.9
[2023-02-19 16:57] LABS: Partial Thromboplastin Time > 139.0 Seconds (21.0-31.0)
[2023-02-19] MEDS: DOXYCYCLINE HYCLATE 100 MG in DEXTROSE 5% MINI-B 100 ML IV SCH (17:48)
[2023-02-19] MEDS: AMIODARONE / D5W 360 MG/200 ML BAG IV SCH (17:48)
[2023-02-19 19:26] LABS: Partial Thromboplastin Ratio 2.8
[2023-02-19 19:40] LABS: Partial Thromboplastin Time 78.3 Seconds (21.0-31.0)
[2023-02-19 21:24] LABS: Partial Thromboplastin Ratio 1.1; Partial Thromboplastin Time 30.1 Seconds (21.0-31.0)
[2023-02-20] MEDS: DOXYCYCLINE HYCLATE 100 MG in DEXTROSE 5% MINI-B 100 ML IV SCH (02:55)
[2023-02-20 04:07] LABS: Hematocrit (blood only) 33.3 % (37.0-47.0); Hemoglobin 10.8 g/dl (12.0-16.0); Mean Corpuscular Hemoglobin 28.6 pg (25.0-34.0); Mean Corpuscular Hgb Conc 32.4 g/dL (32.0-36.0); Mean Corpuscular Volume 88.1 fL (80.0-100.0); Mean Platelet Volume 9.1 fL (9.4-12.4); Platelet Count 181 K/uL (130-400); RDW Coefficient of Variation 13.5 % (11.5-14.5); RDW Standard Deviation 44.1 fL (36.4-46.3); Red Blood Count 3.78 M/uL (4.20-5.40); White Blood Count 16.68 K/ul (4.8-10.8)
[2023-02-20 04:23] LABS: BUN Creatinine Ratio 24.1 (10-20); Calcium 8.5 mg/dl (8.6-10.3); Creatinine Clr Calc Pharmacy 79.3 ml/min; Est GFR (African American) 105.5 ml/min; Potassium 3.3 mmol/L (3.5-5.1)
[2023-02-20 04:47] LABS: Partial Thromboplastin Ratio 2.2
[2023-02-20 05:17] LABS: Partial Thromboplastin Time 62.8 Seconds (21.0-31.0)
[2023-02-20] MEDS: AMIODARONE / D5W 360 MG/200 ML BAG IV SCH ×2 (05:29→15:14)
--- NOTE | 2023-02-20 10:23 | Cardiology Progress Note ---
Date of Service February 20, 2023 Assessment & Plan (1) Severe sepsis: (2) Atrial flutter with rapid ventricular response: (3) Pulmonary HTN: Admission and Anticipated Discharge Date Admission Date: February 19, 2023 Supervising Physician Co-Signing Physician Notes 77 yo woman presenting with dyspnea; concern for PNA Consultation for atrial flutter Started on Amiodarone Currently in NSR with apc's Started on IV Heparin Consider Right Heart Ctah prior to starting on DOAC Repeat ECHO is pending. I personally reviewed the patient's Chest CT Central PA's are dramatically enlarged On exam with RV lift + PA ejection sound This suggests that she has severe PH + hx of arthritis No known SLE, RA, Scleroderma No known CTEPH No reported Syncope No reported Exertional Angina No Major LE edema Explained to patient that we suspect she has Pulmonary Arterial Hypertension If PAH is confirmed, patient may benefit from pulmonary vasodilator therapy Await results of repeat ECHO Check ProBNP Check SCL-70, Rheumatoid Factor, NGHIA, TSH Check RUQ US for cirrhosis PFTs as an outpt May consider Right Heart Cath Patient would like me to speak to her daughter Miko Del [place] Subjective Events overnight: No telemetry events No events reported Review of Systems Review of Systems: All systems reviewed & are unremarkable except as noted in HPI & below Physical Exam Physical Exam: In NAD JVP at base of neck RV lift Pulmonic Ejection sound CTA B No LE edema Warm and perfusing Results & Data Vital Signs (Past 12 Hours) Vital Signs Temp Pulse Pulse Resp BP Pulse Ox O2 Del Method 02/20/23 08:42 36.5 C 84 21 103/51 L 98 Nasal Cannula 02/20/23 08:00 97 H 02/20/23 02:13 36.7 C 96 H 20 129/69 93 Nasal Cannula 02/20/23 00:00 85 02/19/23 22:39 36.5 C 90 20 120/58 L 98 Nasal Cannula O2 Flow Rate 02/20/23 08:42 2 02/20/23 08:00 02/20/23 02:13 2 02/20/23 00:00 02/19/23 22:39 2 Laboratory Results Cardiac Enzymes 02/19/23 02/19/23 02/19/23 Range/Units 10:35 12:29 18:22 AST 16 (13-39) U/L Troponin I High Sens 42.5 H 38.9 H 46.0 H (0-14) pg/ml 02/20/23 Range/Units 00:41 AST (13-39) U/L Troponin I High Sens 46.5 H (0-14) pg/ml Coagulation 02/19/23 02/19/23 02/19/23 Range/Units 10:35 15:19 18:22 PT 12.9 H (9.0-12.0) Seconds APTT > 139.0 H* 78.3 H* (21.0-31.0) Seconds 02/19/23 02/20/23 Range/Units 20:41 03:54 PT (9.0-12.0) Seconds APTT 30.1 62.8 H* (21.0-31.0) Seconds CBC 02/19/23 02/19/23 02/20/23 Range/Units 10:35 11:44 03:47 WBC Cancelled 16.96 H 16.68 H RBC Cancelled 4.01 L 3.78 L Hgb Cancelled 11.4 L 10.8 L Hct Cancelled 35.0 L 33.3 L Plt Count Cancelled 159 181 Neut # (Auto) Cancelled 14.74 H Lymph # (Auto) Cancelled 1.18 L [place] # (Auto) Cancelled 0.81 H Eos # (Auto) Cancelled 0.00 Baso # (Auto) Cancelled 0.05 Comprehensive Metabolic Panel 02/19/23 02/20/23 Range/Units 10:35 03:47 Sodium 131 L 130 L (136-145) mmol/L Potassium 4.1 3.3 L (3.5-5.1) mmol/L Chloride 94 L 95 L (98-107) mmol/L Carbon Dioxide 25 29 (21-32) mmol/L BUN 14 13 (6-23) mg/dl Creatinine 0.77 0.54 L (0.6-1.2) mg/dl Glucose 137 H 133 H (70-99(Fasting)) mg/dl Calcium 9.3 8.5 L (8.6-10.3) mg/dl AST 16 (13-39) U/L ALT 8 (7-52) U/L Alkaline Phosphatase 101 (34-104) U/L Total Protein 7.0 (6.0-8.3) gm/dl Albumin 3.5 (3.4-5.0) gm/dl Intake and Output 02/19/23 02/20/23 02/20/23 22:59 06:59 14:59 Intake Total 512.31 / 2544.962 832.652 / 2544.962 Output Total 250 / 250 Balance 512.31 / 2294.962 582.652 / 2294.962 Intake: IV 312.31 / 1944.962 432.652 / 1944.962 Amiodarone / D5w 360 mg In 200 221.71 / 395.112 173.402 / 395.112 ml @ 0.5 MG/MIN 16.667 mls/hr IV .Q12H [facility] Rx#:[id number] Doxycycline Hyclate 100 mg In 100 / 100 Dextrose 5% Mini-B 100 ml @ 50 mls/hr IV Q12H [facility] Rx#:[id number] Heparin Sodium/Dextrose 25,000 40.6 / 199.85 159.25 / 199.85 units In 500 ml @ 1,050 UNITS/ HR 21 mls/hr IV .[id number] [facility] Rx #:[id number] cefTRIAXone SODIUM 2,000 mg In 50 / 50 Dextrose 5 % Mini-B 50 ml @ 100 mls/hr IV Q24H [facility] Rx#: [id number] Oral 200 / 600 400 / 600 Output: Urine Amount (Catheter) 250 / 250 External 250 / 250 Other: # Unmeasured Voids 1 1 Weight 68.7 kg 67.7 kg Weight Measurement Method Built in [facility] Built in [facility] Medications Administered Current Inpatient Medications Acetaminophen (Acetaminophen 325 Mg Tab) 650 mg PO Q4H PRN PRN Reason: Pain or Fever Stop: 03/21/23 14:47 Doxycycline Hyclate (Doxycycline Hyclate 100 Mg Cap) 100 mg PO Q12H [facility] Stop: 02/27/23 11:59 Amiodarone HCl/Dextrose (Nexterone / D5w) 360 mg in 200 mls @ 16.667 mls/hr IV .Q12H [facility] Stop: 03/21/23 17:29 Last Admin: 02/20/23 05:29 Dose: 0.5 mg/min, 16.7 mls/hr Heparin Sodium/Dextrose (Heparin Sodium/Dextrose) 25,000 units in 500 mls @ 21 mls/hr IV .[id number] [facility]; Protocol Stop: 03/21/23 15:14 Last Titration: 02/20/23 05:18 Dose: 1,050 units/hr, 21 mls/hr Ceftriaxone Sodium 2,000 mg/ (Dextrose) 50 mls @ 100 mls/hr IV Q24H [facility]; Protocol Stop: 02/26/23 15:14 Last Infusion: 02/19/23 16:01 Dose: Infused
[2023-02-20 11:22] LABS: A calco-baum cmplx NotReported Not Detected (NotDetected); Bact fragilis Not Reported Not Detected (NotDetected); C auris Not Reported Not Detected (NotDetected); Calbicans Not Reported Not Detected (NotDetected); Candida glabrata Not Reported Not Detected (NotDetected); Candida krusei Not Reported Not Detected (NotDetected); Cneoformans/gatti Not Reported Not Detected (NotDetected); Cparapsilosis Not Reported Not Detected (NotDetected); E cloacae compx Not Reported Not Detected (NotDetected); Efaecalis Not Reported Not Detected (NotDetected); Efaecium Not Reported Not Detected (NotDetected); Enterobacterales Not Reported Not Detected (NotDetected); Escherichia coli Not Reported Not Detected (NotDetected); H influenzae Not Reported Not Detected (NotDetected); K aerogenes Not Reported Not Detected (NotDetected); Koxytoca Not Reported Not Detected (NotDetected); Kpneumoniae grp Not Reported Not Detected (NotDetected); Lmonocyt Not Reported Not Detected (NotDetected); N meningitidis Not Reported Not Detected (NotDetected); P aeruginosa Not Reported Not Detected (NotDetected); Proteus spp Not Reported Not Detected (NotDetected); Salmonella spp Not Reported Not Detected (NotDetected); Smarcescens Not Reported Not Detected (NotDetected); Staph lugdunensis Not Reported Not Detected (NotDetected); Staph spp. Not Reported DETECTED (NotDetected); Staphaureus Not Reported Not Detected (NotDetected); Staphepi Not Reported Not Detected (NotDetected); Stenmaltophilia Not Reported Not Detected (NotDetected); Strep agal(GrpB) Not Reported Not Detected (NotDetected); Strep pneum Not Reported Not Detected (NotDetected); Strep pyog (GrpA) Not Reported Not Detected (NotDetected); Strep spp Not Reported Not Detected (NotDetected)
[2023-02-20 11:28] LABS: Staphylococcus spp. DETECTED (NotDetected)
[2023-02-20] MEDS ORDERED: VANCOMYCIN HCL 1,250 MG in SODIUM CHLORIDE 0.9% 250 ML IV STA (11:54)
[2023-02-20] MEDS ORDERED: VANCOMYCIN CONSULT ACTIVE PRN (11:54)
[2023-02-20] MEDS ORDERED: DOXYCYCLINE HYCLATE 100 MG CAP PO SCH (12:00)
--- NOTE | 2023-02-20 12:11 | Pharmacy Report ---
Pharmacy Vanc AUC Short Note - Date of Service February 20, 2023 - Assessment & Plan Assessment * 77 year old F receiving VANCOMYCIN + CEFTRIAXONE + DOXYCYCLINE for treatment of pneumonia, and bacteremia vs contaminant. * Pertinent microbiologic data includes: MRSA Nasal Swab is pending. 1 bottle of 1 set of BLCXs is growing GPC in clusters --> BioFire reveals organism is staph species however NOT staph aureus, NOT staph epi and NOT staph lugdunensis, thus likely staph hominis, staph capitis, or staph simulans. Procal 0.68 on 02/19 * Provider plans to repeat BLCXs Plan Vancomycin * AUC/SOURAV is the preferred PK/PD target for vancomycin * AUC guided dosing is effective and associated with decreased risk of nephrotoxicity compared to traditional trough targets * Loading dose: 1250mg * Maint dose 1000mg IV Q 12 hrs (to begin ~6-8 hrs after load) is predicted to achieve target AUC/SOURAV of 400-600 mg/L.hr and may be associated with a 12 % risk of nephrotoxicity * Level ordered for: 02/22/23 Pharmacy will continue to follow and will adjust dose/frequency as necessary. Thank you.
--- NOTE | 2023-02-20 12:37 | CT Scan Report ---
CT chest diagnostic wo con CLINICAL HISTORY: Better delinate pneumonia TECHNIQUE: Multidetector row helical CT of the chest was performed. Coronal and sagittal reformations were obtained. Automated dose lowering techniques and/or adjustment according to patient size were u tilized for this exam. CT DOSE: 340.64 mGy.cm Comparison: Comparison is made to CT chest 03/16/2021 and chest radiograph 12/20/2022 FINDINGS: Lungs and pleura: Small bilateral pleural effusions are seen with underlying atelectasis. Consolidati ve opacities are seen in the left upper lobe and to a lesser extent in the right upper lobe. Heart and pericardium: Cardiomegaly is seen with biatrial enlargement. Vessels: The pulmonary trunk is enlarged measuring 49 mm. Mediastinum and sabrina: Subcentimeter lymph nodes are seen. Chest wall and lower neck: Unremarkable. Abdomen: Unremarkable. Bones: Degenerative changes of the thoracic spine. Old healed rib fractures are seen. IMPRESSION: 1. Bilateral upper lobe predominant pneumonia is seen. 2. Pulmonary hypertension and cardiomegaly. 3. Small bilateral pleural effusions with underlying atelectasis. ACT 112: Negative or not required by law. Electronically signed by: Shai Pineda M.D. 02/20/2023 12:35 PM
--- NOTE | 2023-02-20 12:39 | Hospitalist Progress Note ---
Date of Service February 20, 2023 Assessment & Plan (1) Severe sepsis: (2) Respiratory failure with hypoxia: (3) Pneumonia: Plan: Patient presenting from home with reports of cough x 1 week. In the ED, found to be in atrial flutter with RVR with associated hypotension. WBC 16 K, lactic acid 3.7 -> 2.7. CXR suggestive of pneumonia, elevated procalcitonin. S/p cefepime in the ED, continue with ceftriaxone and doxycycline Blood culture on admissiongram-positive cocci in cluster on 1 out of 4 bottles. Continue on ceftriaxone and doxycycline to cover for pneumonia. Obtain CT chest without contrast to better delineate the pneumonia Started on vancomycin for possible sepsis with gram-positive cocci in clusters (4) Atrial flutter with rapid ventricular response: Plan: EKG on admission personally reviewed; atrial fibrillation with RVR; ventricular rate of 119 bpm Underwent synchronized cardioversion in the ED and converted to NSR with PVC and improvement in BP ED discussed with cardiology and amiodarone drip was recommended [id number] score 4, will start IV heparin Echocardiogram done today showed severely dilated right ventricle, D-shaped septum consistent with right ventricular pressure overload. EF of 65 to 70% Continue on amiodarone and heparin. Switch to p.o. when recommended by cardiology. (5) Chronic right heart failure: (6) Chronic cor pulmonale: (7) Pulmonary HTN: Plan: Echocardiogram done today showed severely dilated right ventricle, D-shaped septum consistent with right ventricular pressure overload. EF of 65 to 70% Holding Lasix for now. We will obtain proBNP, SCL 70, rheumatoid factor, NGHIA, TSH and right upper quadrant ultrasound as recommended by cardiology. PFTs to be done as outpatient; right heart cath to be considered. (8) Post-surgical hypothyroidism: Plan: TSH 0.4 Continue levothyroxine DVT PROPHYLAXIS IV heparin Time spent evaluating patient, direct bedside care, chart review, placing orders, interpretation of diagnostic studies, discussion with consultants, patient, and family members, as well as other required patient management activities is 60 minutes Please note the above document was generated using voice recognition software. It may contain grammatical, syntax or spelling errors. Any formal questions or concerns about the content, text or information contained within the body of this dictation should be directly addressed to the provider for clarification Admission and Anticipated Discharge Date Admission Date: February 19, 2023 Subjective Patient seen and examined at bedside. She is comfortably sitting up on the bed; not in distress. Her is at bedside as well. She is currently on amiodarone and heparin drip Converted to sinus rhythm Review of Systems Review of Systems: All systems reviewed & are unremarkable except as noted in Subjective Physical Exam Physical Exam: Constitutional: Alert orient x3; not in distress. Respiratory: Decreased bilateral breath sounds. No added sound. Cardiovascular: RRR, no murmur, no edema Vessels: no JVD or carotid bruit Chest: normal inspection of chest Abdomen: normal bowel sounds, soft, nontender, no hepatosplenomegaly Musculoskeletal: no cyanosis or clubbing, extremities motor strength 5/5 Skin: no rashes, warm and dry normal turgor Neurologic: PERRL, EOMI, accommodation nl, no face palsy, no dysarthria CN's II- XI intact bilaterally and moves all extremities Psychiatric: A+Ox3, euthymic affect Results & Data Results & Data Vital Signs (Past 12 Hours) Vital Signs Temp Pulse Pulse Resp BP Pulse Ox O2 Del Method 02/20/23 12:01 36.8 C 87 30 H 108/68 97 Nasal Cannula 02/20/23 08:42 36.5 C 84 21 103/51 L 98 Nasal Cannula 02/20/23 08:00 97 H 02/20/23 02:13 36.7 C 96 H 20 129/69 93 Nasal Cannula O2 Flow Rate 02/20/23 12:01 2 02/20/23 08:42 2 02/20/23 08:00 02/20/23 02:13 2 Laboratory Results Laboratory Results WBC 16.68 K/ul (4.8-10.8) H 02/20/23 03:47 RBC 3.78 M/uL (4.20-5.40) L 02/20/23 03:47 Hgb 10.8 g/dl (12.0-16.0) L 02/20/23 03:47 POC Hgb 15.0 g/dl (12.0-16.0) 02/19/23 10:47 Hct 33.3 % (37.0-47.0) L 02/20/23 03:47 POC Hct 44 % (37-47) 02/19/23 10:47 MCV 88.1 fL (80.0-100.0) 02/20/23 03:47 MCH 28.6 pg (25.0-34.0) 02/20/23 03:47 MCHC 32.4 g/dL (32.0-36.0) 02/20/23 03:47 RDW Std Deviation 44.1 fL (36.4-46.3) 02/20/23 03:47 RDW Coeff of Ricardo 13.5 % (11.5-14.5) 02/20/23 03:47 Plt Count 181 K/uL (130-400) 02/20/23 03:47 MPV 9.1 fL (9.4-12.4) L 02/20/23 03:47 Immature Gran % (Auto) 1.1 % 02/19/23 11:44 Neut % (Auto) 86.8 % 02/19/23 11:44 Lymph % (Auto) 7.0 % 02/19/23 11:44 [place] % (Auto) 4.8 % 02/19/23 11:44 Eos % (Auto) 0.0 % 02/19/23 11:44 Baso % (Auto) 0.3 % 02/19/23 11:44 Neut # (Auto) 14.74 K/uL (1.40-6.50) H 02/19/23 11:44 Lymph # (Auto) 1.18 K/uL (1.20-3.40) L 02/19/23 11:44 [place] # (Auto) 0.81 K/uL (0.11-0.59) H 02/19/23 11:44 Eos # (Auto) 0.00 K/uL (0.00-0.50) 02/19/23 11:44 Baso # (Auto) 0.05 K/uL (0.00-0.20) 02/19/23 11:44 Immature Gran # (Auto) 0.18 K/uL (0.01-0.20) 02/19/23 11:44 Absolute Nucleated RBC Cancelled 02/19/23 10:35 Nucleated RBC % (auto) Cancelled 02/19/23 10:35 Neutrophils % (Manual) Cancelled 02/19/23 10:35 Band Neutrophils % Cancelled 02/19/23 10:35 Lymphocytes % (Manual) Cancelled 02/19/23 10:35 Prolymphocyte % Cancelled 02/19/23 10:35 Reactive Lymphs % (Man) Cancelled 02/19/23 10:35 Monocytes % (Manual) Cancelled 02/19/23 10:35 Eosinophils % (Manual) Cancelled 02/19/23 10:35 Basophils % (Manual) Cancelled 02/19/23 10:35 Metamyelocytes % (Man) Cancelled 02/19/23 10:35 Myelocytes % (Man) Cancelled 02/19/23 10:35 Promyelocytes % (Man) Cancelled 02/19/23 10:35 Blast Cells % (Manual) Cancelled 02/19/23 10:35 Plasma Cell % (Manual) Cancelled 02/19/23 10:35 Other Cells % Cancelled 02/19/23 10:35 Nucleated RBC % Cancelled 02/19/23 10:35 Neutrophils # (Manual) Cancelled 02/19/23 10:35 Band Neutrophils # Cancelled 02/19/23 10:35 Total Absolute Neuts Cancelled 02/19/23 10:35 Lymphocytes # (Manual) Cancelled 02/19/23 10:35 Prolymphocyte # Cancelled 02/19/23 10:35 Reactive Lymphs # Cancelled 02/19/23 10:35 Total Abs Lymphocytes Cancelled 02/19/23 10:35 Monocytes # (Manual) Cancelled 02/19/23 10:35 Eosinophils # (Manual) Cancelled 02/19/23 10:35 Basophils # (Manual) Cancelled 02/19/23 10:35 Metamyelocytes # (Man) Cancelled 02/19/23 10:35 Myelocytes # (Manual) Cancelled 02/19/23 10:35 Promyelocytes # (Man) Cancelled 02/19/23 10:35 Blast Cells # (Man) Cancelled 02/19/23 10:35 Plasma Cell # (Manual) Cancelled 02/19/23 10:35 Other Cells # Cancelled 02/19/23 10:35 Nucleated RBCs # (Man) Cancelled 02/19/23 10:35 Hypersegmented Neuts Cancelled 02/19/23 10:35 Hyposegmented Neuts Cancelled 02/19/23 10:35 Hypogranular Neuts Cancelled 02/19/23 10:35 Large Granular Lymphs Cancelled 02/19/23 10:35 # Lrg Granular Lymphs Cancelled 02/19/23 10:35 Hairy Cells Cancelled 02/19/23 10:35 Smudge Cells Cancelled 02/19/23 10:35 Toxic Granulation Cancelled 02/19/23 10:35 Toxic Vacuolation Cancelled 02/19/23 10:35 Dohle Bodies Cancelled 02/19/23 10:35 Sebastian Rods Cancelled 02/19/23 10:35 Platelet Estimate Cancelled 02/19/23 10:35 Hypogranular Platelets Cancelled 02/19/23 10:35 Giant Platelets Cancelled 02/19/23 10:35 Platelet Satelliting Cancelled 02/19/23 10:35 RBC Morphology Cancelled 02/19/23 10:35 Polychromasia Cancelled 02/19/23 10:35 Hypochromasia Cancelled 02/19/23 10:35 Poikilocytosis Cancelled 02/19/23 10:35 Basophilic Stippling Cancelled 02/19/23 10:35 Anisocytosis Cancelled 02/19/23 10:35 Microcytosis Cancelled 02/19/23 10:35 Macrocytosis Cancelled 02/19/23 10:35 Spherocytes Cancelled 02/19/23 10:35 Pappenheimer Bodies Cancelled 02/19/23 10:35 Sickle Cells Cancelled 02/19/23 10:35 Target Cells Cancelled 02/19/23 10:35 Tear Drop Cells Cancelled 02/19/23 10:35 Ovalocytes Cancelled 02/19/23 10:35 Stomatocytes Cancelled 02/19/23 10:35 [place] Bodies Cancelled 02/19/23 10:35 Echinocytes Cancelled 02/19/23 10:35 Acanthocytes (Spur) Cancelled 02/19/23 10:35 Rouleaux Cancelled 02/19/23 10:35 RBC Agglutinates Cancelled 02/19/23 10:35 Schistocytes Cancelled 02/19/23 10:35 Sezary Cell Cancelled 02/19/23 10:35 PT 12.9 Seconds (9.0-12.0) H 02/19/23 10:35 INR 1.2 (0.9-1.1) H 02/19/23 10:35 APTT 62.8 Seconds (21.0-31.0) H* 10/16/23 03:54 PTT Ratio 2.2 02/20/23 03:54 POC Sodium 132 mmol/L (135-144) L 02/19/23 10:47 Sodium 130 mmol/L (136-145) L 02/20/23 03:47 POC Potassium 4.0 mmol/L (3.3-5.0) 02/19/23 10:47 Potassium 3.3 mmol/L (3.5-5.1) L 02/20/23 03:47 POC Chloride 93 mmol/L (101-112) L 02/19/23 10:47 Chloride 95 mmol/L (98-107) L 02/20/23 03:47 Carbon Dioxide 29 mmol/L (21-32) 02/20/23 03:47 POC Total CO2 30 mmol/L (24-31) 02/19/23 10:47 Anion Gap 6 (3-11) 02/20/23 03:47 POC Anion Gap 13.0 mmol/L (16-25) L 02/19/23 10:47 POC BUN 13 mg/dl (7-18) 02/19/23 10:47 BUN 13 mg/dl (6-23) 02/20/23 03:47 Creatinine 0.54 mg/dl (0.6-1.2) L 02/20/23 03:47 POC Creatinine 0.7 mg/dl (0.6-1.3) 02/19/23 10:47 Est Cr Clr Drug Dosing 79.3 ml/min 02/20/23 03:47 Est GFR ( Amer) 105.5 ml/min 02/20/23 03:47 Est GFR (Non-Af Amer) 91.0 ml/min 02/20/23 03:47 BUN/Creatinine Ratio 24.1 (10-20) H 02/20/23 03:47 Glucose 133 mg/dl (70-99(Fasting)) H 02/20/23 03:47 POC Glucose (other) 138 mg/dl (70-99) H 02/19/23 10:47 Lactate 1.6 mmol/L (0.4-2.0) 02/19/23 18:22 Calcium 8.5 mg/dl (8.6-10.3) L 02/20/23 03:47 POC Ioniz Calcium Sol 1.07 mmol/l (1.12-1.32) L 02/19/23 10:47 Magnesium 1.9 mg/dl (1.7-2.4) 02/19/23 10:35 Total Bilirubin 1.2 mg/dl (0.2-1.0) H 02/19/23 10:35 AST 16 U/L (13-39) 02/19/23 10:35 ALT 8 U/L (7-52) 02/19/23 10:35 Alkaline Phosphatase 101 U/L (34-104) 02/19/23 10:35 Troponin I High Sens 46.5 pg/ml (0-14) H 02/20/23 00:41 Total Protein 7.0 gm/dl (6.0-8.3) 02/19/23 10:35 Albumin 3.5 gm/dl (3.4-5.0) 02/19/23 10:35 Globulin 3.5 gm/dl (2.5-4.0) 02/19/23 10:35 Albumin/Globulin Ratio 1.0 (0.9-2) 02/19/23 10:35 Lipase 5 U/L (11-82) L 02/19/23 10:35 Procalcitonin 0.68 ng/ml (0-0.5) H 02/19/23 10:35 TSH 0.403 uIu/ml (0.300-4.500) 02/19/23 10:35 Adenovirus (PCR) Not Detected (NotDetected) 02/19/23 11:05 B. pertussis DNA (PCR) Not Detected (NotDetected) 02/19/23 11:05 B.parapertussis DNA PCR Not Detected (NotDetected) 02/19/23 11:05 C. pneumoniae DNA (PCR) Not Detected (NotDetected) 02/19/23 11:05 Coronavirus OC43 (PCR) Not Detected (NotDetected) 02/19/23 11:05 Coronavirus HKU1 (PCR) Not Detected (NotDetected) 02/19/23 11:05 Coronavirus 229E (PCR) Not Detected (NotDetected) 02/19/23 11:05 SARS-CoV-2 (PCR) Not Detected (NotDetected) 02/19/23 11:05 Coronavirus NL63 (PCR) Not Detected (NotDetected) 02/19/23 11:05 Human Metapneumovir PCR Not Detected (NotDetected) 02/19/23 11:05 Influenza Type A (PCR) Not Detected (NotDetected) 02/19/23 11:05 Influenza Type B (PCR) Not Detected (NotDetected) 02/19/23 11:05 M. pneumoniae (PCR) Not Detected (NotDetected) 02/19/23 11:05 Parainfluenza 1 (PCR) Not Detected (NotDetected) 02/19/23 11:05 Parainfluenza 2 (PCR) Not Detected (NotDetected) 02/19/23 11:05 Parainfluenza 3 (PCR) Not Detected (NotDetected) 02/19/23 11:05 Parainfluenza 4 (PCR) Not Detected (NotDetected) 02/19/23 11:05 RSV (PCR) Not Detected (NotDetected) 02/19/23 11:05 Entero/Rhino (PCR) Not Detected (NotDetected) 02/19/23 11:05 Staphylococcus sp PCR DETECTED (NotDetected) A 02/19/23 10:40 Bld Cult ID Panel PCR See PCR Comment (NotDetected) 02/19/23 10:40 Blood Parasites ID Cancelled 02/19/23 10:35 Impressions Chest X-Ray 02/19/23 10:40 XR chest 1V portable CLINICAL HISTORY: sob, tachy, hypoxia TECHNIQUE: Single frontal radiograph of the chest was obtained. Comparison: Comparison is made to chest radiograph 07/24/[address] chest 03/16/2021 FINDINGS: Exam is limited by patient rotation. Cardiomegaly is noted. Bilateral perihilar opacities are noted. No evidence of pleural effusion or pneumothorax. IMPRESSION: Cardiomegaly and bilateral hilar prominence which likely represents prominent pulmonary vasculature, although superimposed aspiration/pneumonia cannot be excluded. ACT 112: Negative or not required by law. Electronically signed by: Shai Pineda M.D. 02/19/2023 11:36 AM (3) Pneumonia Laterality: bilateral Lung location: unspecified part of lung Pneumonia type: due to unspecified organism Qualified Code(s): J18.9 - Pneumonia, unspecified organism
[2023-02-20] MEDS ORDERED: ALBUT/IPRATROP 3MG/0.5MG NEB 3 ML VIAL ONE (13:39)
[2023-02-20] MEDS ORDERED: SODIUM CHLOR 7% 4 ML NEB ONE (13:39)
[2023-02-20] MEDS ORDERED: POTASSIUM CHLORIDE CRTAB 20 MEQ TABCR PO STA (14:42)
[2023-02-20] MEDS: HEPARIN SODIUM/DEXTROSE 25,000 UNITS/500 ML BAG IV SCH (15:14)
[2023-02-20] MEDS: cefTRIAXone SODIUM 2,000 MG in DEXTROSE 5 % MINI-B 50 ML IV SCH (16:00)
[2023-02-20] MEDS: SODIUM CHLOR 7% 4 ML NEB NEB SCH ×2 (16:44→19:35)
[2023-02-20] MEDS: ALBUT/IPRATROP 3MG/0.5MG NEB 3 ML VIAL NEB SCH ×2 (16:45→19:35)
[2023-02-20] MEDS: VANCOMYCIN HCL 1,000 MG in SODIUM CHLORIDE 0.9% 250 ML IV SCH (17:31)
[2023-02-20] MEDS: DOXYCYCLINE HYCLATE 100 MG CAP PO SCH (20:30)
[2023-02-21] MEDS: MICONAZOLE NITRATE POWDER 85 GM EXT SCH ×3 (02:11→20:04)
[2023-02-21] MEDS ORDERED: Nursing to Pharmacy Communication SCH (03:00)
[2023-02-21] MEDS: AMIODARONE / D5W 360 MG/200 ML BAG IV SCH (03:39)
[2023-02-21] MEDS: VANCOMYCIN HCL 1,000 MG in SODIUM CHLORIDE 0.9% 250 ML IV SCH (06:02)
[2023-02-21 06:14] LABS: Basophils # (auto) 0.04 K/uL (0.00-0.20); Basophils % (auto) 0.3 %; Eosinophils % (auto) 0.8 %; Hemoglobin 10.3 g/dl (12.0-16.0); Immature Granulocytes # (auto) 0.14 K/uL (0.01-0.20); Immature Granulocytes % (auto) 1.2 %; Lymphocytes # (auto) 1.33 K/uL (1.20-3.40); Lymphocytes % (auto) 11.2 %; Mean Corpuscular Hemoglobin 28.4 pg (25.0-34.0); Mean Corpuscular Hgb Conc 32.2 g/dL (32.0-36.0); Mean Corpuscular Volume 88.2 fL (80.0-100.0); Mean Platelet Volume 9.1 fL (9.4-12.4); Monocytes # (auto) 1.01 K/uL (0.11-0.59); Monocytes % (auto) 8.5 %; Neutrophils # (auto) 9.29 K/uL (1.40-6.50); Platelet Count 172 K/uL (130-400); RDW Coefficient of Variation 13.7 % (11.5-14.5); Red Blood Count 3.63 M/uL (4.20-5.40); White Blood Count 11.91 K/ul (4.8-10.8)
[2023-02-21 06:17] LABS: BUN Creatinine Ratio 14.3 (10-20); Calcium 8.3 mg/dl (8.6-10.3); Creatinine Clr Calc Pharmacy 87.4 ml/min; Est GFR (African American) 108.9 ml/min; Potassium 3.5 mmol/L (3.5-5.1)
--- NOTE | 2023-02-21 06:49 | Electrocardiogram Report ---
Test Reason : Blood Pressure : / mmHG Vent. Rate : 164 BPM Atrial Rate : 328 BPM P-R Int : 000 ms QRS Dur : 076 ms QT Int : 298 ms P-R-T Axes : 000 108 061 degrees QTc Int : 492 ms Atrial flutter with 2:1 A-V conduction Rightward axis Low voltage QRS Nonspecific ST abnormality Abnormal ECG When compared with ECG of 24-JUL-2022 08:25, Atrial flutter has replaced Sinus rhythm Confirmed by Edgar Vick ([id number]) on 02/21/2023 6:49:35 AM Referred By: REFERRED SELF Confirmed By:Edgar Vick
--- NOTE | 2023-02-21 06:53 | Electrocardiogram Report ---
Test Reason : Blood Pressure : / mmHG Vent. Rate : 119 BPM Atrial Rate : 115 BPM P-R Int : 210 ms QRS Dur : 086 ms QT Int : 322 ms P-R-T Axes : 054 109 051 degrees QTc Int : 452 ms Sinus tachycardia with frequent Premature atrial complexes with premature ventricular or aberrantly c onducted complexes Rightward axis Low voltage QRS Septal infarct , age undetermined Abnormal ECG When compared with ECG of 19-FEB-2023 10:29, (unconfirmed) Atrial flutter no longer present Septal infarct is now Present Confirmed by Edgar Vick ([id number]) on 02/21/2023 6:53:22 AM Referred By: REFERRED SELF Confirmed By:Edgar Vick
--- NOTE | 2023-02-21 06:58 | Electrocardiogram Report ---
Test Reason : Blood Pressure : / mmHG Vent. Rate : 092 BPM Atrial Rate : 092 BPM P-R Int : 216 ms QRS Dur : 102 ms QT Int : 404 ms P-R-T Axes : 029 113 063 degrees QTc Int : 499 ms Sinus rhythm with 1st degree A-V block with Premature atrial complexes Right axis deviation Low voltage QRS Incomplete right bundle branch block Septal infarct (cited on or before 19-FEB-2023) Abnormal ECG When compared with ECG of 19-FEB-2023 11:25, (unconfirmed) No significant change Confirmed by Edgar Vick ([id number]) on 02/21/2023 6:57:53 AM Referred By: REFERRED SELF Confirmed By:Edgar Vick
[2023-02-21 07:10] LABS: Partial Thromboplastin Ratio 2.4
[2023-02-21 07:11] LABS: Partial Thromboplastin Time 66.8 Seconds (21.0-31.0)
--- NOTE | 2023-02-21 07:24 | Electrocardiogram Report ---
Test Reason : Blood Pressure : / mmHG Vent. Rate : 093 BPM Atrial Rate : 093 BPM P-R Int : 204 ms QRS Dur : 104 ms QT Int : 394 ms P-R-T Axes : 065 116 070 degrees QTc Int : 489 ms Sinus rhythm with sinus arrhythmia with occasional Premature supraventricular complexes Right axis deviation Low voltage QRS Septal infarct (cited on or before 19-FEB-2023) Abnormal ECG When compared with ECG of 19-FEB-2023 13:50, (unconfirmed) Incomplete right bundle branch block is no longer Present Confirmed by Edgar Vick ([id number]) on 02/21/2023 7:23:42 AM Referred By: REFERRED SELF Confirmed By:Edgar Vick
--- NOTE | 2023-02-21 07:42 | Cardiology Progress Note ---
Date of Service February 21, 2023 Assessment & Plan Admission and Anticipated Discharge Date Admission Date: February 19, 2023 Supervising Physician Co-Signing Physician Notes 77 yo woman presenting with dyspnea; concern for PNA Consultation for atrial flutter Started on Amiodarone Currently in NSR with apc's Started on IV Heparin Consider transition to DOAC May be considered for aflutter ablation as an outpt after evaluation for PAH is completed Repeat ECHO - COMPLETED Evidence of "negative contrast" - suggests underlying ASD Right Heart Cath would need to O2 Sampling to look for "Step up" Chest CT - Central PA's are dramatically enlarged Exam: RV lift + PA ejection sound - suggests that she has severe PH + hx of arthritis No known SLE, RA, Scleroderma No known CTEPH No reported Syncope No reported Exertional Angina No Major LE edema Patient is potential candidate for pulmonary vasodilator therapy ECHO - personally reviewed BNP - elevated - 472 - consistent with RV challenges and places patient in higher risk category Check SCL-70, Rheumatoid Factor, NGHIA, TSH (evaluate for WHO Group 1 PAH) Check RUQ US for cirrhosis PFTs as an outpt Right Heart Cath - as an outpt once she recover from PNA Prder RHC to be done in [place]; if patient to have RHC @ [facility], would like to discuss case with Wood Mechanist prior to procedure I personally spoke to patient's daughter on 02-20-2023 Patient and family are agreeable for further work up Will arrange for cardiology follow up Please call back with any additional questions Miko Del Rio Subjective Events overnight: * NSR on telemetry Subjective: * ongoing productive cough Review of Systems Review of Systems: All systems reviewed & are unremarkable except as noted in HPI & below Physical Exam Physical Exam: In NAD JVP at base of neck RV lift Pulmonic Ejection sound CTA B No LE edema Warm and perfusing Results & Data Vital Signs (Past 12 Hours) Vital Signs Temp Pulse Pulse Pulse Resp BP BP 02/21/23 06:53 36.7 C 84 19 107/48 L 02/21/23 04:14 02/21/23 02:13 37.4 C 81 20 109/53 L 02/20/23 23:13 36.6 C 92 H 18 106/50 L 02/20/23 22:59 87 Pulse Ox O2 Del Method O2 Flow Rate 02/21/23 06:53 96 Nasal Cannula 2 02/21/23 04:14 Nasal Cannula 2 02/21/23 02:13 99 Nasal Cannula 2 02/20/23 23:13 97 Nasal Cannula 02/20/23 22:59 Laboratory Results Cardiac Enzymes 02/20/23 Range/Units 12:54 B-Natriuretic Peptide 472 H (0-100) pg/ml Coagulation 02/20/23 02/21/23 Range/Units 12:54 05:37 APTT 66.8 H* (21.0-31.0) Seconds B-Natriuretic Peptide 472 H (0-100) pg/ml CBC 02/21/23 Range/Units 05:37 WBC 11.91 H (4.8-10.8) K/ul RBC 3.63 L (4.20-5.40) M/uL Hgb 10.3 L (12.0-16.0) g/dl Hct 32.0 L (37.0-47.0) % Plt Count 172 (130-400) K/uL Neut # (Auto) 9.29 H (1.40-6.50) K/uL Lymph # (Auto) 1.33 (1.20-3.40) K/uL [place] # (Auto) 1.01 H (0.11-0.59) K/uL Eos # (Auto) 0.10 (0.00-0.50) K/uL Baso # (Auto) 0.04 (0.00-0.20) K/uL Comprehensive Metabolic Panel 02/21/23 Range/Units 05:37 Sodium 134 L (136-145) mmol/L Potassium 3.5 (3.5-5.1) mmol/L Chloride 97 L (98-107) mmol/L Carbon Dioxide 33 H (21-32) mmol/L BUN 7 (6-23) mg/dl Creatinine 0.49 L (0.6-1.2) mg/dl Glucose 123 H (70-99(Fasting)) mg/dl Calcium 8.3 L (8.6-10.3) mg/dl Intake and Output 02/20/23 02/21/23 02/21/23 22:59 06:59 14:59 Intake Total 835.035 / 1696.575 336.54 / 1696.575 523.75 / 523.75 Output Total 1100 / 1500 Balance 835.035 / 196.575 -763.46 / 196.575 523.75 / 523.75 Intake: IV 835.035 / 1246.575 136.54 / 1246.575 523.75 / 523.75 Amiodarone / D5w 360 mg In 200 226.285 / 362.825 136.54 / 362.825 ml @ 0.5 MG/MIN 16.667 mls/hr IV .Q12H [facility] Rx#:[id number] Heparin Sodium/Dextrose 25,000 288.75 / 288.75 253.75 / 253.75 units In 500 ml @ 1,050 UNITS/ HR 21 mls/hr IV .[id number] [facility] Rx #:[id number] Vancomycin HCl 1,000 mg In 270 / 270 270 / 270 Sodium Chloride 0.9% 250 ml @ 200 mls/hr IV Q12H [facility] Rx#: [id number] cefTRIAXone SODIUM 2,000 mg In 50 / 50 Dextrose 5 % Mini-B 50 ml @ 100 mls/hr IV Q24H [facility] Rx#: [id number] Oral 200 / 450 Output: Urine Amount (Catheter) 1100 / 1100 External 1100 / 1100 Other: Weight 68.8 kg Diagnostic Findings ECHOcardiogram: 02-20-2023 Negative contrast noted on bubble study Concern for ASD Medications Administered Current Inpatient Medications Acetaminophen (Acetaminophen 325 Mg Tab) 650 mg PO Q4H PRN PRN Reason: Pain or Fever Stop: 03/21/23 14:47 Albuterol (Albut/Ipratrop 3mg/0.5mg Neb 3 Ml Vial) 3 ml NEB BIDR [facility]; Protocol Stop: 03/22/23 12:44 Last Admin: 02/20/23 19:35 Dose: 3 ml Doxycycline Hyclate (Doxycycline Hyclate 100 Mg Cap) 100 mg PO BID [facility] Stop: 02/27/23 20:59 Last Admin: 02/20/23 20:30 Dose: 100 mg Amiodarone HCl/Dextrose (Nexterone / D5w) 360 mg in 200 mls @ 16.667 mls/hr IV .Q12H [facility] Stop: 03/21/23 17:29 Last Admin: 02/21/23 03:39 Dose: 0.5 mg/min, 16.7 mls/hr Heparin Sodium/Dextrose (Heparin Sodium/Dextrose) 25,000 units in 500 mls @ 21 mls/hr IV .[id number] [facility]; Protocol Stop: 03/21/23 15:14 Last Titration: 02/21/23 07:08 Dose: 1,050 units/hr, 21 mls/hr Ceftriaxone Sodium 2,000 mg/ (Dextrose) 50 mls @ 100 mls/hr IV Q24H [facility]; Protocol Stop: 02/26/23 15:14 Last Infusion: 02/20/23 17:52 Dose: Infused Vancomycin HCl 1,000 mg/ (Sodium Chloride) 270 mls @ 200 mls/hr IV Q12H [facility] Stop: 03/06/23 17:59 Last Infusion: 02/21/23 07:39 Dose: Infused Miconazole Nitrate (Miconazole Nitrate Powder 85 Gm) 1 appln EXT BID [facility] Stop: 03/22/23 23:29 Last Admin: 02/21/23 02:11 Dose: 1 appln Miscellaneous Information (Vancomycin Consult Active) 1 each N/A UD PRN PRN Reason: Consult Stop: 03/22/23 11:53 Sodium Chloride (Sodium Chlor 7% 4 Ml Neb) 4 ml NEB BIDR [facility] Stop: 03/22/23 12:34 Last Admin: 02/20/23 19:35 Dose: 4 ml
[2023-02-21] MEDS: SODIUM CHLOR 7% 4 ML NEB NEB SCH ×2 (07:43→19:28)
[2023-02-21] MEDS: ALBUT/IPRATROP 3MG/0.5MG NEB 3 ML VIAL NEB SCH ×2 (07:43→19:28)
--- NOTE | 2023-02-21 08:11 | Electrocardiogram Report ---
Test Reason : Blood Pressure : / mmHG Vent. Rate : 081 BPM Atrial Rate : 081 BPM P-R Int : 224 ms QRS Dur : 104 ms QT Int : 398 ms P-R-T Axes : 066 118 065 degrees QTc Int : 462 ms Sinus rhythm with 1st degree A-V block Right axis deviation Low voltage QRS Possible Old Septal infarct (cited on or before 19-FEB-2023) Abnormal ECG When compared with ECG of 20-FEB-2023 06:14, Premature ventricular complexes are no longer Present Confirmed by Cristian Hernandez ([id number]) on 02/21/2023 8:11:01 AM Referred By: REFERRED SELF Confirmed By:Cristian Hernandez
[2023-02-21] MEDS: DOXYCYCLINE HYCLATE 100 MG CAP PO SCH ×2 (08:29→20:04)
--- NOTE | 2023-02-21 13:45 | Ultrasound Report ---
US liver CLINICAL HISTORY: rule out cirhosis TECHNIQUE: Multiple real-time sonographic images of the right upper quadrant were obtained. Comparison: None available at the time of this dictation. FINDINGS: The liver is diffusely homogenous with normal contour and echogenicity. No focal mass lesions are see n. No intrahepatic ductal dilatation is seen. Linear hyperechoic foci with posterior shadowing ar e identified layering dependently within the gallbladder, which are consistent with gallstones. The g allbladder wall is not thickened. There is no pericholecystic fluid present. A sonographic Valdez's sign was not elicited by the chain saw operator. The common duct measures 0.2 cm in diameter at the level of the hepatic artery. The visualized portions of the pancreas appear normal. The right kidney shows normal echogenicity, cortical thickness and renal contour. The right kidney sh ows no evidence of hydronephrosis or mass. No ascites or free fluid is seen in Funez's pouch. IMPRESSION: Cholelithiasis is seen without cholecystitis. No evidence of cirrhosis. ACT 112: Negative or not required by law. Electronically signed by: Shai Pineda M.D. 02/21/2023 1:44 PM
--- NOTE | 2023-02-21 14:38 | Hospitalist Progress Note ---
Date of Service February 21, 2023 Assessment & Plan (1) Severe sepsis: (2) Respiratory failure with hypoxia: (3) Pneumonia: Plan: Patient presenting from home with reports of cough x 1 week. In the ED, found to be in atrial flutter with RVR with associated hypotension. WBC 16 K, lactic acid 3.7 -> 2.7. CXR suggestive of pneumonia, elevated procalcitonin. S/p cefepime in the ED, continue with ceftriaxone and doxycycline CT chest without contrast personally reviewed; bilateral upper lobe predominant pneumonia. Blood culture on admissiongram-positive cocci in cluster on 1 out of 4 bottles. Continue on ceftriaxone and doxycycline to cover for pneumonia. Continue airway clearance therapy Discontinued vancomycin as it is most likely contaminated. Repeat blood culture pending (4) Atrial flutter with rapid ventricular response: Plan: EKG on admission personally reviewed; atrial fibrillation with RVR; ventricular rate of 119 bpm Underwent synchronized cardioversion in the ED and converted to NSR with PVC and improvement in BP ED discussed with cardiology and amiodarone drip was recommended [id number] score 4, will start IV heparin Echocardiogram done today showed severely dilated right ventricle, D-shaped septum consistent with right ventricular pressure overload. EF of 65 to 70% Was on IV amiodarone switched over to p.o. amiodarone 200 mg twice a day for 1 week, then to be placed on amiodarone 200 mg once a day for thereafter. Eliquis prescription sent; cost is $47 per month. (5) Chronic right heart failure: (6) Chronic cor pulmonale: (7) Pulmonary HTN: Plan: Echocardiogram done today showed severely dilated right ventricle, D-shaped septum consistent with right ventricular pressure overload. EF of 65 to 70% Liver ultrasound does not show cirrhosis BNP elevated NGHIA and rheumatoid factor pending Right heart cath as outpatient follow-up with PFT (8) Post-surgical hypothyroidism: Plan: TSH 0.4 Continue levothyroxine DVT PROPHYLAXIS Eliquis Time spent evaluating patient, direct bedside care, chart review, placing orders, interpretation of diagnostic studies, discussion with consultants, patient, and family members, as well as other required patient management activities is 60 minutes Please note the above document was generated using voice recognition software. It may contain grammatical, syntax or spelling errors. Any formal questions or concerns about the content, text or information contained within the body of this dictation should be directly addressed to the provider for clarification Admission and Anticipated Discharge Date Admission Date: February 19, 2023 Subjective Patient seen and examined at bedside. She reports that she is feeling much better. Telemetry shows that she converted to sinus rhythm. Review of Systems Review of Systems: All systems reviewed & are unremarkable except as noted in Subjective Physical Exam Physical Exam: Constitutional: Alert orient x3; not in distress. Respiratory: Decreased bilateral breath sounds. No added sound. Cardiovascular: RRR, no murmur, no edema Vessels: no JVD or carotid bruit Chest: normal inspection of chest Abdomen: normal bowel sounds, soft, nontender, no hepatosplenomegaly Musculoskeletal: no cyanosis or clubbing, extremities motor strength 5/5 Skin: no rashes, warm and dry normal turgor Neurologic: PERRL, EOMI, accommodation nl, no face palsy, no dysarthria CN's II- XI intact bilaterally and moves all extremities Psychiatric: A+Ox3, euthymic affect Results & Data Results & Data Vital Signs (Past 12 Hours) Vital Signs Temp Pulse Pulse Resp BP BP Pulse Ox 02/21/23 11:48 36.7 C 95 H 19 98/47 L 97 02/21/23 07:30 103 H 02/21/23 07:30 02/21/23 07:43 80 18 95 02/21/23 06:53 36.7 C 84 19 107/48 L 96 02/21/23 04:14 O2 Del Method O2 Flow Rate 02/21/23 11:48 Nasal Cannula 02/21/23 07:30 02/21/23 07:30 Nasal Cannula 2 02/21/23 07:43 Nasal Cannula 2 02/21/23 06:53 Nasal Cannula 2 02/21/23 04:14 Nasal Cannula 2 Laboratory Results Laboratory Results WBC 11.91 K/ul (4.8-10.8) H 02/21/23 05:37 RBC 3.63 M/uL (4.20-5.40) L 02/21/23 05:37 Hgb 10.3 g/dl (12.0-16.0) L 02/21/23 05:37 POC Hgb 15.0 g/dl (12.0-16.0) 02/19/23 10:47 Hct 32.0 % (37.0-47.0) L 02/21/23 05:37 POC Hct 44 % (37-47) 02/19/23 10:47 MCV 88.2 fL (80.0-100.0) 02/21/23 05:37 MCH 28.4 pg (25.0-34.0) 02/21/23 05:37 MCHC 32.2 g/dL (32.0-36.0) 02/21/23 05:37 RDW Std Deviation 44.0 fL (36.4-46.3) 02/21/23 05:37 RDW Coeff of Ricardo 13.7 % (11.5-14.5) 02/21/23 05:37 Plt Count 172 K/uL (130-400) 02/21/23 05:37 MPV 9.1 fL (9.4-12.4) L 02/21/23 05:37 Immature Gran % (Auto) 1.2 % 02/21/23 05:37 Neut % (Auto) 78.0 % 02/21/23 05:37 Lymph % (Auto) 11.2 % 02/21/23 05:37 [place] % (Auto) 8.5 % 02/21/23 05:37 Eos % (Auto) 0.8 % 02/21/23 05:37 Baso % (Auto) 0.3 % 02/21/23 05:37 Neut # (Auto) 9.29 K/uL (1.40-6.50) H 02/21/23 05:37 Lymph # (Auto) 1.33 K/uL (1.20-3.40) 02/21/23 05:37 [place] # (Auto) 1.01 K/uL (0.11-0.59) H 02/21/23 05:37 Eos # (Auto) 0.10 K/uL (0.00-0.50) 02/21/23 05:37 Baso # (Auto) 0.04 K/uL (0.00-0.20) 02/21/23 05:37 Immature Gran # (Auto) 0.14 K/uL (0.01-0.20) 02/21/23 05:37 Absolute Nucleated RBC Cancelled 02/19/23 10:35 Nucleated RBC % (auto) Cancelled 02/19/23 10:35 Neutrophils % (Manual) Cancelled 02/19/23 10:35 Band Neutrophils % Cancelled 02/19/23 10:35 Lymphocytes % (Manual) Cancelled 02/19/23 10:35 Prolymphocyte % Cancelled 02/19/23 10:35 Reactive Lymphs % (Man) Cancelled 02/19/23 10:35 Monocytes % (Manual) Cancelled 02/19/23 10:35 Eosinophils % (Manual) Cancelled 02/19/23 10:35 Basophils % (Manual) Cancelled 02/19/23 10:35 Metamyelocytes % (Man) Cancelled 02/19/23 10:35 Myelocytes % (Man) Cancelled 02/19/23 10:35 Promyelocytes % (Man) Cancelled 02/19/23 10:35 Blast Cells % (Manual) Cancelled 02/19/23 10:35 Plasma Cell % (Manual) Cancelled 02/19/23 10:35 Other Cells % Cancelled 02/19/23 10:35 Nucleated RBC % Cancelled 02/19/23 10:35 Neutrophils # (Manual) Cancelled 02/19/23 10:35 Band Neutrophils # Cancelled 02/19/23 10:35 Total Absolute Neuts Cancelled 02/19/23 10:35 Lymphocytes # (Manual) Cancelled 02/19/23 10:35 Prolymphocyte # Cancelled 02/19/23 10:35 Reactive Lymphs # Cancelled 02/19/23 10:35 Total Abs Lymphocytes Cancelled 02/19/23 10:35 Monocytes # (Manual) Cancelled 02/19/23 10:35 Eosinophils # (Manual) Cancelled 02/19/23 10:35 Basophils # (Manual) Cancelled 02/19/23 10:35 Metamyelocytes # (Man) Cancelled 02/19/23 10:35 Myelocytes # (Manual) Cancelled 02/19/23 10:35 Promyelocytes # (Man) Cancelled 02/19/23 10:35 Blast Cells # (Man) Cancelled 02/19/23 10:35 Plasma Cell # (Manual) Cancelled 02/19/23 10:35 Other Cells # Cancelled 02/19/23 10:35 Nucleated RBCs # (Man) Cancelled 02/19/23 10:35 Hypersegmented Neuts Cancelled 02/19/23 10:35 Hyposegmented Neuts Cancelled 02/19/23 10:35 Hypogranular Neuts Cancelled 02/19/23 10:35 Large Granular Lymphs Cancelled 02/19/23 10:35 # Lrg Granular Lymphs Cancelled 02/19/23 10:35 Hairy Cells Cancelled 02/19/23 10:35 Smudge Cells Cancelled 02/19/23 10:35 Toxic Granulation Cancelled 02/19/23 10:35 Toxic Vacuolation Cancelled 02/19/23 10:35 Dohle Bodies Cancelled 02/19/23 10:35 Sebastian Rods Cancelled 02/19/23 10:35 Platelet Estimate Cancelled 02/19/23 10:35 Hypogranular Platelets Cancelled 02/19/23 10:35 Giant Platelets Cancelled 02/19/23 10:35 Platelet Satelliting Cancelled 02/19/23 10:35 RBC Morphology Cancelled 02/19/23 10:35 Polychromasia Cancelled 02/19/23 10:35 Hypochromasia Cancelled 02/19/23 10:35 Poikilocytosis Cancelled 02/19/23 10:35 Basophilic Stippling Cancelled 02/19/23 10:35 Anisocytosis Cancelled 02/19/23 10:35 Microcytosis Cancelled 02/19/23 10:35 Macrocytosis Cancelled 02/19/23 10:35 Spherocytes Cancelled 02/19/23 10:35 Pappenheimer Bodies Cancelled 02/19/23 10:35 Sickle Cells Cancelled 02/19/23 10:35 Target Cells Cancelled 02/19/23 10:35 Tear Drop Cells Cancelled 02/19/23 10:35 Ovalocytes Cancelled 02/19/23 10:35 Stomatocytes Cancelled 02/19/23 10:35 [place] Bodies Cancelled 02/19/23 10:35 Echinocytes Cancelled 02/19/23 10:35 Acanthocytes (Spur) Cancelled 02/19/23 10:35 Rouleaux Cancelled 02/19/23 10:35 RBC Agglutinates Cancelled 02/19/23 10:35 Schistocytes Cancelled 02/19/23 10:35 Sezary Cell Cancelled 02/19/23 10:35 PT 12.9 Seconds (9.0-12.0) H 02/19/23 10:35 INR 1.2 (0.9-1.1) H 02/19/23 10:35 APTT 66.8 Seconds (21.0-31.0) H* 02/21/23 05:37 PTT Ratio 2.4 02/21/23 05:37 POC Sodium 132 mmol/L (135-144) L 02/19/23 10:47 Sodium 134 mmol/L (136-145) L 02/21/23 05:37 POC Potassium 4.0 mmol/L (3.3-5.0) 02/19/23 10:47 Potassium 3.5 mmol/L (3.5-5.1) 02/21/23 05:37 POC Chloride 93 mmol/L (101-112) L 02/19/23 10:47 Chloride 97 mmol/L (98-107) L 02/21/23 05:37 Carbon Dioxide 33 mmol/L (21-32) H 02/21/23 05:37 POC Total CO2 30 mmol/L (24-31) 02/19/23 10:47 Anion Gap 4 (3-11) 02/21/23 05:37 POC Anion Gap 13.0 mmol/L (16-25) L 02/19/23 10:47 POC BUN 13 mg/dl (7-18) 02/19/23 10:47 BUN 7 mg/dl (6-23) 02/21/23 05:37 Creatinine 0.49 mg/dl (0.6-1.2) L 02/21/23 05:37 POC Creatinine 0.7 mg/dl (0.6-1.3) 02/19/23 10:47 Est Cr Clr Drug Dosing 87.4 ml/min 02/21/23 05:37 Est GFR ( Amer) 108.9 ml/min 02/21/23 05:37 Est GFR (Non-Af Amer) 94.0 ml/min 02/21/23 05:37 BUN/Creatinine Ratio 14.3 (10-20) 02/21/23 05:37 Glucose 123 mg/dl (70-99(Fasting)) H 02/21/23 05:37 POC Glucose (other) 138 mg/dl (70-99) H 02/19/23 10:47 Lactate 1.6 mmol/L (0.4-2.0) 02/19/23 18:22 Calcium 8.3 mg/dl (8.6-10.3) L 02/21/23 05:37 POC Ioniz Calcium Sol 1.07 mmol/l (1.12-1.32) L 02/19/23 10:47 Magnesium 1.9 mg/dl (1.7-2.4) 02/19/23 10:35 Total Bilirubin 1.2 mg/dl (0.2-1.0) H 02/19/23 10:35 AST 16 U/L (13-39) 02/19/23 10:35 ALT 8 U/L (7-52) 02/19/23 10:35 Alkaline Phosphatase 101 U/L (34-104) 02/19/23 10:35 Troponin I High Sens 46.5 pg/ml (0-14) H 02/20/23 00:41 B-Natriuretic Peptide 472 pg/ml (0-100) H 02/20/23 12:54 Total Protein 7.0 gm/dl (6.0-8.3) 02/19/23 10:35 Albumin 3.5 gm/dl (3.4-5.0) 02/19/23 10:35 Globulin 3.5 gm/dl (2.5-4.0) 02/19/23 10:35 Albumin/Globulin Ratio 1.0 (0.9-2) 02/19/23 10:35 Lipase 5 U/L (11-82) L 02/19/23 10:35 Procalcitonin 0.68 ng/ml (0-0.5) H 02/19/23 10:35 TSH 0.403 uIu/ml (0.300-4.500) 02/19/23 10:35 Nasal Screen MRSA (PCR) Negative (Negative) 02/20/23 14:20 Adenovirus (PCR) Not Detected (NotDetected) 02/19/23 11:05 B. pertussis DNA (PCR) Not Detected (NotDetected) 02/19/23 11:05 B.parapertussis DNA PCR Not Detected (NotDetected) 02/19/23 11:05 C. pneumoniae DNA (PCR) Not Detected (NotDetected) 02/19/23 11:05 Coronavirus OC43 (PCR) Not Detected (NotDetected) 02/19/23 11:05 Coronavirus HKU1 (PCR) Not Detected (NotDetected) 02/19/23 11:05 Coronavirus 229E (PCR) Not Detected (NotDetected) 02/19/23 11:05 SARS-CoV-2 (PCR) Not Detected (NotDetected) 02/19/23 11:05 Coronavirus NL63 (PCR) Not Detected (NotDetected) 02/19/23 11:05 Human Metapneumovir PCR Not Detected (NotDetected) 02/19/23 11:05 Influenza Type A (PCR) Not Detected (NotDetected) 02/19/23 11:05 Influenza Type B (PCR) Not Detected (NotDetected) 02/19/23 11:05 M. pneumoniae (PCR) Not Detected (NotDetected) 02/19/23 11:05 Parainfluenza 1 (PCR) Not Detected (NotDetected) 02/19/23 11:05 Parainfluenza 2 (PCR) Not Detected (NotDetected) 02/19/23 11:05 Parainfluenza 3 (PCR) Not Detected (NotDetected) 02/19/23 11:05 Parainfluenza 4 (PCR) Not Detected (NotDetected) 02/19/23 11:05 RSV (PCR) Not Detected (NotDetected) 02/19/23 11:05 Entero/Rhino (PCR) Not Detected (NotDetected) 02/19/23 11:05 Staphylococcus sp PCR DETECTED (NotDetected) A 02/19/23 10:40 Bld Cult ID Panel PCR See PCR Comment (NotDetected) 02/19/23 10:40 Blood Parasites ID Cancelled 02/19/23 10:35 Impressions Chest X-Ray 02/19/23 10:40 XR chest 1V portable CLINICAL HISTORY: sob, tachy, hypoxia TECHNIQUE: Single frontal radiograph of the chest was obtained. Comparison: Comparison is made to chest radiograph 07/24/[address] chest 03/16/2021 FINDINGS: Exam is limited by patient rotation. Cardiomegaly is noted. Bilateral perihilar opacities are noted. No evidence of pleural effusion or pneumothorax. IMPRESSION: Cardiomegaly and bilateral hilar prominence which likely represents prominent pulmonary vasculature, although superimposed aspiration/pneumonia cannot be excluded. ACT 112: Negative or not required by law. Electronically signed by: Shai Pineda M.D. 02/19/2023 11:[address] 02/20/23 08:06 CT chest diagnostic wo con CLINICAL HISTORY: Better delinate pneumonia TECHNIQUE: Multidetector row helical CT of the chest was performed. Coronal and sagittal reformations were obtained. Automated dose lowering techniques and/or adjustment according to patient size were utilized for this exam. CT DOSE: 340.64 mGy.cm Comparison: Comparison is made to CT chest 03/16/2021 and chest radiograph 12/20/2022 FINDINGS: Lungs and pleura: Small bilateral pleural effusions are seen with underlying atelectasis. Consolidative opacities are seen in the left upper lobe and to a lesser extent in the right upper lobe. Heart and pericardium: Cardiomegaly is seen with biatrial enlargement. Vessels: The pulmonary trunk is enlarged measuring 49 mm. Mediastinum and sabrina: Subcentimeter lymph nodes are seen. Chest wall and lower neck: Unremarkable. Abdomen: Unremarkable. Bones: Degenerative changes of the thoracic spine. Old healed rib fractures are seen. IMPRESSION: 1. Bilateral upper lobe predominant pneumonia is seen. 2. Pulmonary hypertension and cardiomegaly. 3. Small bilateral pleural effusions with underlying atelectasis. ACT 112: Negative or not required by law. Electronically signed by: hSai Pineda M.D. 02/20/2023 12:35 PM Liver Ultrasound 02/21/23 12:39 US liver CLINICAL HISTORY: rule out cirhosis TECHNIQUE: Multiple real-time sonographic images of the right upper quadrant were obtained. Comparison: None available at the time of this dictation. FINDINGS: The liver is diffusely homogenous with normal contour and echogenicity. No focal mass lesions are seen. No intrahepatic ductal dilatation is seen. Linear hyperechoic foci with posterior shadowing are identified layering dependently within the gallbladder, which are consistent with gallstones. The gallbladder wall is not thickened. There is no pericholecystic fluid present. A sonographic Valdez's sign was not elicited by the veterinary technologist. The common duct measures 0.2 cm in diameter at the level of the hepatic artery. The visualized portions of the pancreas appear normal. The right kidney shows normal echogenicity, cortical thickness and renal contour. The right kidney shows no evidence of hydronephrosis or mass. No ascites or free fluid is seen in Funez's pouch. IMPRESSION: Cholelithiasis is seen without cholecystitis. No evidence of cirrhosis. ACT 112: Negative or not required by law. Electronically signed by: Shai Pineda M.D. 02/21/2023 1:44 PM (3) Pneumonia Laterality: bilateral Lung location: unspecified part of lung Pneumonia type: due to unspecified organism Qualified Code(s): J18.9 - Pneumonia, unspecified organism
[2023-02-21] MEDS: APIXABAN 5 MG TABLET PO SCH ×2 (15:10→20:03)
[2023-02-21] MEDS: cefTRIAXone SODIUM 2,000 MG in DEXTROSE 5 % MINI-B 50 ML IV SCH (15:14)
[2023-02-21] MEDS: AMIODARONE 200 MG TAB PO SCH (17:02)
[2023-02-21 22:54] LABS: Appearance Urine Clear (Clear); Bilirubin Urine Negative (Negative); Blood Urine Negative (Negative); Color Urine Yellow; Glucose Urine UA Negative (Negative); Ketones Urine Negative (Negative); Leukocyte Esterase Urine Negative (Negative); Nitrite Urine Negative (Negative); Protein Urine Negative (Negative); Specific Gravity Urine 1.003 (1.000-1.030); Urobilinogen Urine Negative (Negative); pH Urine 6.5 (4.5-7.5)
[2023-02-22] MEDS ORDERED: VANCOMYCIN LEVEL ONE (05:00)
[2023-02-22 06:18] LABS: Basophils # (auto) 0.06 K/uL (0.00-0.20); Basophils % (auto) 0.6 %; Eosinophils # (auto) 0.16 K/uL (0.00-0.50); Eosinophils % (auto) 1.6 %; Hematocrit (blood only) 30.8 % (37.0-47.0); Hemoglobin 10.1 g/dl (12.0-16.0); Immature Granulocytes # (auto) 0.18 K/uL (0.01-0.20); Immature Granulocytes % (auto) 1.8 %; Lymphocytes # (auto) 1.36 K/uL (1.20-3.40); Lymphocytes % (auto) 13.9 %; Mean Corpuscular Hemoglobin 28.7 pg (25.0-34.0); Mean Corpuscular Hgb Conc 32.8 g/dL (32.0-36.0); Mean Corpuscular Volume 87.5 fL (80.0-100.0); Mean Platelet Volume 9.1 fL (9.4-12.4); Monocytes # (auto) 1.19 K/uL (0.11-0.59); Monocytes % (auto) 12.2 %; Neutrophils # (auto) 6.83 K/uL (1.40-6.50); Neutrophils % (auto) 69.9 %; Platelet Count 192 K/uL (130-400); RDW Coefficient of Variation 13.6 % (11.5-14.5); RDW Standard Deviation 43.8 fL (36.4-46.3); Red Blood Count 3.52 M/uL (4.20-5.40); White Blood Count 9.78 K/ul (4.8-10.8)
[2023-02-22 06:30] LABS: BUN Creatinine Ratio 10.2 (10-20); Calcium 8.6 mg/dl (8.6-10.3); Creatinine Clr Calc Pharmacy 72.5 ml/min; Est GFR (African American) 102.5 ml/min; Est GFR (Non-African American) 88.4 ml/min; Potassium 3.4 mmol/L (3.5-5.1)
[2023-02-22 06:59] LABS: Partial Thromboplastin Ratio 1.4; Partial Thromboplastin Time 38.9 Seconds (21.0-31.0)
[2023-02-22] MEDS: SODIUM CHLOR 7% 4 ML NEB NEB SCH (07:11)
[2023-02-22] MEDS: ALBUT/IPRATROP 3MG/0.5MG NEB 3 ML VIAL NEB SCH (07:11)
[2023-02-22] MEDS: APIXABAN 5 MG TABLET PO SCH (08:06)
[2023-02-22] MEDS: DOXYCYCLINE HYCLATE 100 MG CAP PO SCH (08:06)
[2023-02-22] MEDS: AMIODARONE 200 MG TAB PO SCH (08:07)
[2023-02-22] MEDS: MICONAZOLE NITRATE POWDER 85 GM EXT SCH (08:08)
[2023-02-22 10:46] LABS: Anti Nuclear Antibody Screen NEGATIVE (NEGATIVE); Rheumatoid Factor <14 IU/mL (<14)
--- NOTE | 2023-02-22 10:54 | Discharge Summary ---
Date of Service February 22, 2023 Admission HPI Per Admitting Provider 77-year-old female with PMH postoperative hypothyroidism, paroxysmal atrial tachycardia, chronic right-sided heart failure, pulmonary hypertension, HTN, moderate tricuspid regurgitation, and other problems listed below who presents to the ED for evaluation of cough. History is obtained from the patient and daughter who is at bedside and review of outpatient PCP and cardiology records. Patient reports she has been sick for 1 week. She has had a cough this been productive for white sputum. Reports one low-grade fever. Patient states she has mild occasional exertional shortness of breath. Patient has oxygen at home that she uses as needed. Typically will wear it a couple of times a day. Reports loose stools yesterday. She denies chest pain and palpitations. No lightheadedness, dizziness, diaphoresis, syncopal events. She denies abdominal pain, nausea, vomiting. No urinary symptoms. In the ED, patient was found to be in atrial flutter with RVR with associated hypotension. Patient underwent sy nchronized cardioversion in ED. She converted to sinus rhythm with PVCs. Labs show WBC 16 K, lactate 3.7. CXR suggestive of pneumonia. Cardiology was contacted by ED who recommended amiodarone drip. Patient was also given cefepime, magnesium replacement, IVF. Admission Exam Per Admitting Provider Constitutional: WD/WN, vitals as above no acute distress Eyes: PERRL, conjunctivae normal, anicteric sclerae ENMT: external ear and nose normal, oropharynx normal Respiratory: normal respiratory effort; no respiratory distress Auscultation: + diminished lung sounds Cardiovascular: Rate/Rhythm: regular rate and regular rhythm Vessels: normal peripheral pulses Extremities: no edema Gastrointestinal (Abdomen): normal bowel sounds, soft, nontender, no hepatosplenomegaly Musculoskeletal: no cyanosis or clubbing, extremities motor strength 5/5 Skin: no rashes, warm and dry Neurologic: PERRL, EOMI, accommodation nl, no face palsy, no dysarthria Psychiatric: A+Ox3, euthymic affect Principal Diagnosis SVT Hypokalemia Discharge Exam Constitutional: Alert orient x3; not in distress. Respiratory: Decreased bilateral breath sounds. No added sound. Cardiovascular: RRR, no murmur, no edema Vessels: no JVD or carotid bruit Chest: normal inspection of chest Abdomen: normal bowel sounds, soft, nontender, no hepatosplenomegaly Musculoskeletal: no cyanosis or clubbing, extremities motor strength 5/5 Skin: no rashes, warm and dry normal turgor Neurologic: PERRL, EOMI, accommodation nl, no face palsy, no dysarthria CN's II- XI intact bilaterally and moves all extremities Psychiatric: A+Ox3, euthymic affect Discharge Data Allergies Allergy/AdvReac Type Severity Reaction Status Date / Time No Known Allergies Allergy Verified 07/24/22 09:38 Consultations 02/19/23 12:13 Consult Cardiology Routine ED Decision to Admit Stat Ordered Studies 02/20/23 08:06 CT chest diagnostic wo con Routine 02/21/23 12:39 US liver Routine Hospital Course (1) Severe sepsis: (2) Respiratory failure with hypoxia: (3) Pneumonia: Patient presenting from home with reports of cough x 1 week. In the ED, found to be in atrial flutter with RVR with associated hypotension. WBC 16 K, lactic acid 3.7 -> 2.7. CXR suggestive of pneumonia, elevated procalcitonin. S/p cefepime in the ED, continue with ceftriaxone and doxycycline CT chest without contrast personally reviewed; bilateral upper lobe predominant pneumonia. Blood culture on admissiongram-positive cocci in cluster on 1 out of 4 bottles. Likely contaminant. Repeat blood culture was negative for 24 hours During the hospitalization, patient was started on IV antibiotics for bilateral upper lobe pneumonia. Airway clearance therapy was done. Patient continues to show signs of improvement throughout the hospitalization. She was requiring 2 to 3 L on and off. PT OT evaluation was done; patient was recommended to go to rehab. However, patient reported that she has enough support at home and wanted to go there. Patient has portable oxygen supplies at home. At discharge, she was prescribed cefdinir and doxycycline. (4) Atrial flutter with rapid ventricular response: EKG on admission personally reviewed; atrial fibrillation with RVR; ventricular rate of 119 bpm Underwent synchronized cardioversion in the ED and converted to NSR with PVC and improvement in BP ED discussed with cardiology and amiodarone drip was recommended [id number] score 4, will start IV heparin Echocardiogram done today showed severely dilated right ventricle, D-shaped septum consistent with right ventricular pressure overload. EF of 65 to 70% Patient remained in sinus rhythm throughout the hospitalization after getting started on amiodarone. She was discharged on 7 days of amiodarone twice daily, then once a day. She was also prescribed Eliquis (5) Chronic right heart failure: (6) Chronic cor pulmonale: (7) Pulmonary HTN: Echocardiogram done today showed severely dilated right ventricle, D-shaped septum consistent with right ventricular pressure overload. EF of 65 to 70% Liver ultrasound does not show cirrhosis BNP elevated NGHIA and rheumatoid factor pending Right heart cath as outpatient follow-up with PFT (8) Post-surgical hypothyroidism: Please note the above document was generated using voice recognition software. It may contain grammatical, syntax or spelling errors. Any formal questions or concerns about the content, text or information contained within the body of this dictation should be directly addressed to the provider for clarification Total Time Total Time Spent Total Time Spent (In Minutes): 45 Total Time Includes: Examination of the Patient, Discharge Planning, Medication Reconciliation, Communication With Other Providers and Other Discharge Plan Discharge Items Patient Disposition: Home - Home Health Services Reason For Visit: PNEUMONIA, A FLUTTER Discharge Diagnosis: Pneumonia Atrial fibrillation with RVR Activity: Resume your previous activity Non-emergency contact: Primary Care Provider Call non-emergency contact if: you have any medication questions and your symptoms worsen Follow-up/Referrals: Cristian Durham MD [Primary Care Provider] - (Date & Time 02/28/2023 11:00 AM Provider BRANDIN [facility] Department Family Practice [facility] ) Diet: Regular Addtl Attending Provider Instructions: You were admitted to the hospital with pneumonia. To complete the treatment course; you are prescribed following antibiotics: 1) Cefdinir 300 mg twice daily 2) Doxycycline 100 mg twice daily You were also found to have fast heart rhythm called atrial fibrillation. You are prescribed following medication for it: 1) Amiodarone 200 mg twice a day for 7 days, then start taking it daily. 2) Eliquis(blood thinner) 5mg twice daily An appointment has been made for you with your PCP. Pending Studies at Discharge: No Stand-Alone Forms: My [employer], Smoking Cessation Medications and DC Order Prescriptions: New Eliquis 5 mg tablet 5 mg PO BID Qty: 60 0RF doxycycline hyclate 100 mg Capsule 100 mg PO BID 5 Days Qty: 10 0RF amiodarone 200 mg Tablet See Taper PO DAILY Qty: 60 0RF Taper: Taper, Blank 200 mg TWICE A DAY for 7 Days 200 mg DAILY for 30 Days cefdinir 300 mg capsule 300 mg PO BID 5 Days Qty: 10 0RF Continued cholecalciferol (vitamin D3) [Vitamin D3] 50 mcg (2,000 unit) Capsule 2,000 unit PO QAM Rx Instructions: PT'S DAUGHTER NOT SURE OF STRENGTH furosemide 20 mg Tablet 20 mg PO MoWeFr@0900 Qty: 30 0RF levothyroxine 100 mcg tablet 100 mcg PO DAILY atorvastatin 20 mg tablet 20 mg PO QAM Discontinued aspirin [Adolph Low Dose Aspirin] 81 mg Tablet,Delayed Release (Dr/Ec) 81 mg PO QAM metoprolol succinate 25 mg tablet extended release 24 hr 25 mg PO BID Discharge Orders: Discharge Order (Routine); Ordered 02/22/23 Ordered By: Babatunde Flannery Admission Data Admit Date/Time: 02/19/23 12:18 Attending Provider: Babatunde Flannery Admit Provider: Evelin Hess Primary Care Provider: Cristian Durham Other Providers: Evelin Hess
== END 2023-02-22 14:15 | disposition home health service (06) | DRG 871 ==
LOC: ED 10:02 → EDINP 12:18 → SUATTDRO 12:18 → 2E 16:02